=== PATIENT | male | born 1950 | race Caucasian/White ===

== ENCOUNTER 2020-06-28 22:31 | Inpatient (IN) ==
[2020-06-28] MEDS ORDERED: VANCOMYCIN 1,500 MG in 0.9 % SODIUM CHLORIDE 500 ML IV ONE (22:59)
[2020-06-28] MEDS ORDERED: PIPERACILLIN SODIUM/TAZOBACTAM 3.375 GM in DEXTROSE 5% IN WATER 50 ML IV SCH (23:00)
--- NOTE | 2020-06-28 23:04 | Emergency Department Note ---
Skin/Abscess/FB HPI General Chief complaint: Skin/Abscess/Rash Stated complaint: Foot ulcer Time Seen by Provider: 06/28/20 22:55 Source: patient Mode of arrival: ambulatory Limitations: no limitations History of Present Illness HPI Narrative: Narrative: 69-year-old male comes in complaining of worsening cellulitis of the right foot. He is somewhat confused and is not able to give me a reliable history. 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 He has had 3 doses of that and is not improving. The foot is swelling some and the redness has extended beyond the marked lines. He does have Charcot foot on the right and is a insulin-dependent diabetic. He denies trouble breathing or fever Related Data Home Medications Medication Instructions Recorded Confirmed insulin degludec [Tresiba 22 unit SUB-Q QHS 06/29/20 06/29/20 FlexTouch U-100] Previous Rx's Medication Instructions Recorded blood sugar diagnostic #50 each 06/06/19 spironolactone 25 mg tablet 25 mg PO QAM #30 tab 09/13/19 losartan 100 mg tablet See Rx Instructions .ROUTE 03/22/20 .COMPLEX #90 tab Allergies Allergy/AdvReac Type Severity Reaction Status Date / Time LALIT Inhibitors AdvReac Severe Neuroangina Verified 06/28/20 22:35 amlodipine [From Norvasc] AdvReac Severe Rash Verified 06/28/20 22:35 metformin AdvReac Intermediate Diarrhea Verified 06/28/20 22:35 lisinopril AdvReac Unknown Swollen Verified 06/28/20 22:35 lips, Respiratory Distress UNKNOWN BLODD PRESSURE MED Allergy Intermediate THROAT Uncoded 05/25/20 11:29 SWELLS Review of Systems ROS ROS Narrative: Narrative: All systems ED: reviewed and negative except as stated. [facility] Narrative Patient History Narrative: Narrative: Medical/Surgical/Family History All Active Problems (Updated 06/29/20 @ 00:40 by Eric Tiwari MD) Acute GI hemorrhage (Acute) Cellulitis and abscess of foot, except toes (Acute) Ventral hernia with obstruction and without gangrene (Acute) Foot callus (Acute) Diabetic autonomic neuropathy associated with type 2 diabetes mellitus (Acute) Iron deficiency anemia due to chronic blood loss (Acute) Tenonitis (Acute) Osteomyelitis of second toe of left foot (Acute) Pressure ulcer of right foot (Acute) Anemia (Acute) GERD with esophagitis (Acute) Palpitations (Chronic) Calcaneal spur, right foot (Chronic) Dry eye syndrome (Chronic) Combined nonsenile cataract (Chronic) HTN (hypertension) (Chronic) Hyperlipidemia (Chronic) Afib (Chronic) Type 2 diabetes mellitus with mild nonproliferative diabetic retinopathy without macular edema, left eye (Chronic) Other assisted (current) drug therapy (Chronic) Lower limb amputation status (Chronic) Preventative health care (Chronic) Medical History Afib (Chronic) Calcaneal spur, right foot (Chronic) Combined nonsenile cataract (Chronic) Dry eye syndrome (Chronic) Edema (Acute) History of complete ray amputation of second toe of left foot (Acute) HTN (hypertension) (Chronic) Hx of colon cancer, stage I (Acute ~1999) Hyperlipidemia (Chronic) Other termite treater (current) drug therapy (Chronic) Palpitations (Chronic) Preventative health care (Chronic) Type 2 diabetes mellitus with mild nonproliferative diabetic retinopathy without macular edema, left eye (Chronic) Surgical History History of esophagogastroduodenoscopy (EGD) (Acute ~2005) History of surgical removal of skin lesion (Acute 12/09/18) Papilloma removal Hx of colectomy (Acute) s- Partial Hx of colonoscopy (Acute ~03/2009) Hx of foot surgery (Acute ~2011) Hx of hernia repair (Acute ~2001) Ventral hernia, inguinal hernia Abdominal hernia repair, 2012 Lower limb amputation status (Chronic) Family History Mother Diabetes Macular degeneration Osteoporosis Father Hx of heart bypass surgery, Onset Age: 81 Prostate cancer Grandmother , young from unknown toxemia No problems noted. Grandfather Polio Paternal Brother , Age 53 - Bone Cancer No problems noted. Social History Smoking Status: Never smoker Alcohol Intake Frequency: does not drink Substance Use: does not use Exam Narrative Narrative: Narrative: Exam limited to the right lower foot shows mild pitting edema all around the foot. He is mildly tender-the foot is not insensate. He seems more sensitive to pressure but not light touch. The foot is markedly deformed and clearly Charcot-there is some scarring from previous surgery at the forefoot dorsum. The ulcer is actually somewhat proximal to the base of the hallux lateral. This area is very hypertrophied and cracked open with purulent drainage-the wound site is perhaps 3 to 4 cm. This particular area is quite tender. He has hammering of the toes as well. There is a market where earlier the redness have been behind now there is faint redness extending past this line perhaps 1-2 cm. Rectal exam shows normal rectal tone. He does have dark black stool at the rectum. Hemoccult positive General Limitations: no limitations Course Vital Signs Vital signs: Vital Signs Temperature 97.6 F 06/28/20 22:32 Pulse Rate 71 06/28/20 22:32 Respiratory Rate 18 06/28/20 22:32 Blood Pressure 168/53 06/28/20 22:32 Pulse Oximetry (%) 100 06/28/20 22:32 Temperature 98.3 F 06/29/20 08:00 Pulse Rate 63 06/29/20 08:00 Respiratory Rate 20 06/29/20 08:00 Blood Pressure 172/74 06/29/20 08:00 Pulse Oximetry (%) 100 06/29/20 08:00 [facility] MDM Narrative Medical decision making narrative: Narrative: Cellulitis versus abscess versus osteomyelitis and even sepsis. He does have some confusion but his vital signs are reasonable here-he is afebrile. Will order laboratory and x-ray to further sort this out. Get blood cultures and wound culture. X-ray ordered. Start Vanco and Zosyn X-ray shows compatible cellulitis but not osteomyelitis. Laboratory supports the diagnosis of cellulitis but not sepsis-leukocytosis is noted but procalcitonin is relatively low, and lactic acid is normal. Vital signs remained stable Unfortunately his hemoglobin came back at 6.8 and BUN is elevated. Looking back at his history he has had previous GI bleed so I did a rectal exam which was heme positive. We will order transfusion 3 units. Ordered Protonix 80 mg IV I contacted his and got additional history. She notes that Dr. Knight did a pill camera and upper endoscopy less than a month ago and found a small ar ea of bleeding in the upper intestine as well as Alpesh's lesions. Unfortunately Dr. Knight is not on-call tonight so we still have to contact another GI doctor to sort this out. The patient's also tells me that he had colon cancer about 20 years ago and had 18 inches of his colon removed. I discussed the situation with Dr. Alegria, [facility]'s general surgeon, who agreed to consult on the patient for possible endoscopy and other surgical treatment. I then discussed the case with Dr. Rubin our hospitalist, who agreed to accept the patient. We will admit the patient here for IV antibiotics as well as further treatment of his GI bleed. Ordered GoLYTELY for later this morning per surgery recommendations. I wrote transition orders Lab Data Result diagrams: 06/28/20 23:12 Labs: Lab Results 06/28/20 06/28/20 06/28/20 Range/Units 23:12 23:12 23:12 WBC 17.9 H (4.5-11.0) K/mcL RBC 3.06 L (4.50-5.90) M/mcL Hgb 6.8 L* (13.5-16.5) g/dL Hct 23.5 L (41.0-55.0) % POC Hct (41-55) % MCV 76.8 L (80.0-100.0) fL MCH 22.2 L (26.0-34.0) pg MCHC 28.9 L (31.0-36.0) g/dL RDW 16.1 H (11.5-14.5) % Plt Count 566 H (140-440) K/mcL MPV 8.8 (7.4-10.4) fL Neut % (Auto) 88.5 H (38.0-78.0) % Lymph % (Auto) 4.1 L (15.0-49.0) % [place] % (Auto) 6.9 (1.0-12.0) % Eos % (Auto) 0.3 (0.0-7.0) % Baso % (Auto) 0.2 (0.0-2.0) % Lymph # (Auto) 0.73 L (1.50-4.80) K/mcL [place] # (Auto) 1.24 H (0.10-0.90) K/mcL Eos # (Auto) 0.06 (0.00-0.70) K/mcL Baso # (Auto) 0.03 (0.00-0.20) K/mcL Absolute Neutrophils 15.82 H (1.80-8.00) K/mcL VBG Lactic Acid 1.0 (0.5-2.0) mmol/L POC Sodium (133-145) mEq/L POC Potassium (3.3-5.1) mEql/L POC Chloride (96-108) mEq/L POC Total CO2 (22-30) mmol/L POC BUN (6-20) mg/dL POC Creatinine (0.6-1.2) mg/dL POC Glucose (70-105) mg/dL Hemoglobin A1c 8.1 H (4.0-6.0) % Hgb Estim Average Glucose 186 mg/dL POC WB Ioniz Calcium (1.16-1.32) mmEq/L C-Reactive Protein 20.30 H (0.03-0.80) mg/dL Procalcitonin (<0.10) ng/mL 06/28/20 06/29/20 Range/Units 23:12 01:04 WBC (4.5-11.0) K/mcL RBC (4.50-5.90) M/mcL Hgb (13.5-16.5) g/dL Hct (41.0-55.0) % POC Hct 24 L (41-55) % MCV (80.0-100.0) fL MCH (26.0-34.0) pg MCHC (31.0-36.0) g/dL RDW (11.5-14.5) % Plt Count (140-440) K/mcL MPV (7.4-10.4) fL Neut % (Auto) (38.0-78.0) % Lymph % (Auto) (15.0-49.0) % [place] % (Auto) (1.0-12.0) % Eos % (Auto) (0.0-7.0) % Baso % (Auto) (0.0-2.0) % Lymph # (Auto) (1.50-4.80) K/mcL [place] # (Auto) (0.10-0.90) K/mcL Eos # (Auto) (0.00-0.70) K/mcL Baso # (Auto) (0.00-0.20) K/mcL Absolute Neutrophils (1.80-8.00) K/mcL VBG Lactic Acid (0.5-2.0) mmol/L POC Sodium 133 (133-145) mEq/L POC Potassium 4.5 (3.3-5.1) mEql/L POC Chloride 105 (96-108) mEq/L POC Total CO2 21 L (22-30) mmol/L POC BUN 29 H (6-20) mg/dL POC Creatinine 1.5 H (0.6-1.2) mg/dL POC Glucose 209 H (70-105) mg/dL Hemoglobin A1c (4.0-6.0) % Hgb Estim Average Glucose mg/dL POC WB Ioniz Calcium 1.46 H (1.16-1.32) mmEq/L C-Reactive Protein (0.03-0.80) mg/dL Procalcitonin 0.12 H (<0.10) ng/mL Radiology Data Radiology results reviewed: Yes I reviewed the patient's radiology results. Radiology results narrative: X-ray of the right foot shows soft tissue changes around the area of the wound site but nothing to suggest osteomyelitis. Notable previous instrumentation and postsurgical changes at the lateral portion of the right foot Discharge Plan Patient/Caregiver Discharge Instructions Pt seen by NURSE INFORMATICS EDUCATOR/PA only: No Clinical Impression: Acute GI hemorrhage, Cellulitis and abscess of foot, except toes Patient Disposition: Xfer As Inpt ([facility]) Condition: Serious Discharge Date/Time: 06/29/20 03:00
[2020-06-29 00:21] LABS: Basophils # (Auto) 0.03 K/mcL (0.00-0.20); Basophils % (Auto) 0.2 % (0.0-2.0); Eosinophils # (Auto) 0.06 K/mcL (0.00-0.70); Eosinophils % (Auto) 0.3 % (0.0-7.0); Hematocrit 23.5 % (41.0-55.0); Hemoglobin 6.8 g/dL (13.5-16.5); Lymphocytes # (Auto) 0.73 K/mcL (1.50-4.80); Lymphocytes % (Auto) 4.1 % (15.0-49.0); Mean Cell Volume 76.8 fL (80.0-100.0); Mean Corpuscular HGB Conc 28.9 g/dL (31.0-36.0); Mean Platelet Volume 8.8 fL (7.4-10.4); Monocytes # (Auto) 1.24 K/mcL (0.10-0.90); Monocytes % (Auto) 6.9 % (1.0-12.0); Neutrophils % (Auto) 88.5 % (38.0-78.0); Platelet Count 566 K/mcL (140-440); RBC 3.06 M/mcL (4.50-5.90); Red Cell Distribution Width 16.1 % (11.5-14.5); WBC 17.9 K/mcL (4.5-11.0)
[2020-06-29 00:34] LABS: Estimated Average Glucose(eAG) 186 mg/dL; Hemoglobin A1C 8.1 % Hgb (4.0-6.0)
[2020-06-29] MEDS ORDERED: 0.9 % SODIUM CHLORIDE 500 ML IV ONE (00:36)
[2020-06-29] MEDS ORDERED: 0.9 % SODIUM CHLORIDE 250 ML IV SCH (00:45)
[2020-06-29 01:15] LABS: POC Calcium, Ionized 1.46 mmEq/L (1.16-1.32); POC Creatinine 1.5 mg/dL (0.6-1.2); POC Potassium 4.5 mEql/L (3.3-5.1)
[2020-06-29] MEDS ORDERED: PANTOPRAZOLE 40 MG VIAL IV ONE (01:24)
[2020-06-29] MEDS ORDERED: ONDANSETRON 4 MG/2 ML VIAL IV PRN (01:49)
[2020-06-29] MEDS ORDERED: morphine 2 MG/ML VIAL IV PRN (01:49)
[2020-06-29] MEDS: 0.9 % SODIUM CHLORIDE 1,000 ML IV SCH ×2 (03:00→18:33)
--- NOTE | 2020-06-29 03:04 | XRay Report ---
CLINICAL INFORMATION: cellulitis / osteomyelitis COMPARISON: None. FINDINGS: The fifth metatarsal is subtotally resected: only the base remains. Distal fourth metatarsal osteotomy: Distal fragment is displaced one shaft width in a medial direction. Two screws are entirely within the metatarsal head fragment and the more proximal screw is fractured. There is solid osseous union across the osteotomy which shows moderate deformity related to distal fragment displacement. A 2 cm region of focal soft tissue swelling and subcutaneous gas overlies the medial aspect of the first MTP. There is mild erosive changes in the medial cortex of the first metatarsal head which suggests the possibility of complicating osteomyelitis. Pes cavus, severe hammertoe deformities first through fifth digits and metatarsus abductus noted. There is severe degenerative change in all the MTT and moderate degenerative change in the MTP and navicular cuneiform joints. Diffuse soft tissue swelling noted. IMPRESSION: 1. Focal cellulitis over the medial first MTP. There is a vague 9 mm radiolucent focus in the underlying medial first metatarsal head which could indicate complicating osteomyelitis. If definitive diagnosis is required, suggest MRI. 2. Malunified old distal fourth metatarsal osteotomy. 3. Subtotal resection of the fifth metatarsal. 4. Multilevel degeneration - most severe in the mid foot. 5. Pes cavus, metatarsus abductus and severe hammertoe deformities first through fifth digits. Interpreted and Authenticated by: Zackary Pena 06/29/20
[2020-06-29] MEDS ORDERED: HYDROcodone/APAP 5/325MG TABLET PO PRN (08:28)
[2020-06-29] MEDS ORDERED: ACETAMINOPHEN 325 MG TABLET PO PRN (08:28)
[2020-06-29] MEDS ORDERED: PROCHLORPERAZINE 10 MG/2 ML VIAL IV PRN (08:28)
[2020-06-29] MEDS ORDERED: DEXTROSE 31 GM ORAL.SUSP PO PRN (08:33)
[2020-06-29] MEDS ORDERED: DEXTROSE 50% 50 ML VIAL IV PRN (08:33)
--- NOTE | 2020-06-29 08:59 | Internal Med History&Physical ---
HPI History of Present Illness Patient information: Note initiated : 06/29/20 at 8:42 am Service Date, if different from initiated Date: [] Patient: Joesph Kang a 69 y/o M admitted on 06/29/20 for Foot ulcer. Chief Complaint: [] History of present illness: Mr. Kang is a 69 year old M diabetes type 2, high blood pressure and GI bleeding who presented to the ER due to right foot redness and and swelling. Patient is a poor historian. Patient went to see his podiatry yesterday who prescribed Augmentin for him. But the antibiotics does not seem to work. In the ER, he was found to have low hemoglobin 6.8 and a positive guaiac. He has a history of GI bleeding. 3 units of she RBC were ordered. When I saw this patient, he denied headache, dizziness, nausea, vomiting, chest pain, shortness of breath, abdominal pain, hematochezia or any bleeding. Review of Systems Review of systems: Positive for right foot redness and swelling. All other systems were reviewed and negative. PFSH PFSH All Active Problems Acute GI hemorrhage (Acute) Cellulitis and abscess of foot, except toes (Acute) Ventral hernia with obstruction and without gangrene (Acute) Foot callus (Acute) Diabetic autonomic neuropathy associated with type 2 diabetes mellitus (Acute) Iron deficiency anemia due to chronic blood loss (Acute) Tenonitis (Acute) Osteomyelitis of second toe of left foot (Acute) Pressure ulcer of right foot (Acute) Anemia (Acute) GERD with esophagitis (Acute) Palpitations (Chronic) Calcaneal spur, right foot (Chronic) Dry eye syndrome (Chronic) Combined nonsenile cataract (Chronic) HTN (hypertension) (Chronic) Hyperlipidemia (Chronic) Afib (Chronic) Type 2 diabetes mellitus with mild nonproliferative diabetic retinopathy without macular edema, left eye (Chronic) Other snf (current) drug therapy (Chronic) Lower limb amputation status (Chronic) Preventative health care (Chronic) Medical History Afib (Chronic) Calcaneal spur, right foot (Chronic) Combined nonsenile cataract (Chronic) Dry eye syndrome (Chronic) Edema (Acute) History of complete ray amputation of second toe of left foot (Acute) HTN (hypertension) (Chronic) Hx of colon cancer, stage I (Acute ~1999) Hyperlipidemia (Chronic) Other intermediate teacher (current) drug therapy (Chronic) Palpitations (Chronic) Preventative health care (Chronic) Type 2 diabetes mellitus with mild nonproliferative diabetic retinopathy without macular edema, left eye (Chronic) Surgical History History of esophagogastroduodenoscopy (EGD) (Acute ~2005) History of surgical removal of skin lesion (Acute 12/09/18) Papilloma removal Hx of colectomy (Acute) s- Partial Hx of colonoscopy (Acute ~03/2009) Hx of foot surgery (Acute ~2011) Hx of hernia repair (Acute ~2001) Ventral hernia, inguinal hernia Abdominal hernia repair, 2011 Lower limb amputation status (Chronic) Family History Mother Diabetes Macular degeneration Osteoporosis Father Hx of heart bypass surgery, Onset Age: 81 Prostate cancer Grandmother , young from unknown toxemia No problems noted. Grandfather Polio Paternal Brother , Age 53 - Bone Cancer No problems noted. 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, [employer] smoking status: Never smoker alcohol intake frequency: does not drink substance use type: does not use MEDS/ALLERGIES Home Medications and Allergies Home Medications Medication Instructions Recorded Confirmed Type blood sugar diagnostic #50 each 06/06/19 05/25/20 Rx spironolactone 25 mg tablet 25 mg PO QAM #30 tab 09/13/19 06/29/20 Rx losartan 100 mg tablet See Rx Instructions .ROUTE 03/22/20 06/29/20 Rx .COMPLEX #90 tab insulin degludec [Tresiba 22 unit SUB-Q QHS 06/29/20 06/29/20 History FlexTouch U-100] Allergies Allergy/AdvReac Type Severity Reaction Status Date / Time LALIT Inhibitors AdvReac Severe Neuroangina Verified 06/28/20 22:35 amlodipine [From Norvasc] AdvReac Severe Rash Verified 06/28/20 22:35 metformin AdvReac Intermediate Diarrhea Verified 06/28/20 22:35 lisinopril AdvReac Unknown Swollen Verified 06/28/20 22:35 lips, Respiratory Distress UNKNOWN BLODD PRESSURE MED Allergy Intermediate THROAT Uncoded 05/25/20 11:29 SWELLS EXAM Constitutional Vitals: Temp Pulse Resp BP Pulse Ox 98.3 F 63 20 172/74 100 06/29/20 08:00 06/29/20 08:00 06/29/20 08:00 06/29/20 08:00 06/29/20 08:00 Additional findings Additional findings: General - No acute distress Eyes - PERRLA, EOM intact ENT no rhinorrhea, no noticeable or palpable swelling, no redness or rash around throat or on face Neck supple, no JVD, no thyromegaly Respiratory: Lungs - diminshed BS, no use of accessary muscles. Cardiovascular - RRR no m/r/g, GI - Normal bowel sounds, no distended, soft. 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 Right distal part of foot erythema and edema. Ulcer is noted over plantar aspect of first phalangeal metatarsal joint, covered by purulent secetion. Hemo/lymphatic/immune no lymphadenopathy Neurological Alert and oriented x 3, no focal neurological deficits. Psychiatry flat affect DATA Data Completed and Pending Labs: Labs from last 24 hours 06/29/20 06/28/20 06/28/20 01:04 23:12 23:12 WBC RBC Hgb Hct POC Hct 24 L MCV MCH MCHC RDW Plt Count MPV Neut % (Auto) Lymph % (Auto) [place] % (Auto) Eos % (Auto) Baso % (Auto) Lymph # (Auto) [place] # (Auto) Eos # (Auto) Baso # (Auto) Absolute Neutrophils VBG Lactic Acid 1.0 POC Sodium 133 POC Potassium 4.5 POC Chloride 105 POC Total CO2 21 L POC BUN 29 H POC Creatinine 1.5 H POC Glucose 209 H Hemoglobin A1c Estim Average Glucose POC WB Ioniz Calcium 1.46 H C-Reactive Protein Procalcitonin 0.12 H 06/28/20 06/28/20 23:12 23:12 WBC 17.9 H RBC 3.06 L Hgb 6.8 L* Hct 23.5 L POC Hct MCV 76.8 L MCH 22.2 L MCHC 28.9 L RDW 16.1 H Plt Count 566 H MPV 8.8 Neut % (Auto) 88.5 H Lymph % (Auto) 4.1 L [place] % (Auto) 6.9 Eos % (Auto) 0.3 Baso % (Auto) 0.2 Lymph # (Auto) 0.73 L [place] # (Auto) 1.24 H Eos # (Auto) 0.06 Baso # (Auto) 0.03 Absolute Neutrophils 15.82 H VBG Lactic Acid POC Sodium POC Potassium POC Chloride POC Total CO2 POC BUN POC Creatinine POC Glucose Hemoglobin A1c 8.1 H Estim Average Glucose 186 POC WB Ioniz Calcium C-Reactive Protein 20.30 H Procalcitonin Preliminary micro results at discharge 06/28/20 23:48 Gram Stain - Preliminary Foot - Right Wound Culture - Preliminary A/P Narrative A/P Narrative: 1. GI bleeding 2. Hx of colon cancer, stage I hx of GI bleeding Dr. Knight did a pill camera and upper endoscopy in less than a month ago and found a small area of bleeding in the upper intestine as well as Alpesh's lesions. reported that he had colon cancer about 20 years ago and had 18 inches of his colon removed SG Dr. Calloway consult 3. Anemia of blood loss Hb 6.8 in the ER pantoprazole 40mg iv bid transfusion of 3 units of pRBCs 4. Cellulitis of right foot 5. Osteomyelitis of first metatarsal head, right wound culture blood culture wound care [facility] Podiatry consult 6. 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 HTN Continue losartan 100 mg daily, spironolactone 25 mg daily Added amlodipine 2.5 mg daily Hydralazine as needed 8. DVT prophylaxis: Lovenox 9. CODE STATUS: Piece Work Inspector Spent With Patient Time: Total time spent is greater than 50% in coordination of care (as documented) at patient's floor/unit and/or counseling patient: QUALITY VTE Deep Vein Thrombosis/Pulmonary Embolism Present on Admission: No
[2020-06-29] MEDS ORDERED: amLODIPine 5 MG TABLET PO SCH (09:00)
[2020-06-29] MEDS: PANTOPRAZOLE 40 MG VIAL IV SCH ×2 (09:50→17:46)
[2020-06-29] MEDS: LOSARTAN 50 MG TABLET PO SCH (09:50)
[2020-06-29] MEDS: SPIRONOLACTONE 25 MG TABLET PO SCH (09:50)
[2020-06-29] MEDS: DOCUSATE SODIUM 100 MG CAPSULE PO SCH ×2 (09:50→20:32)
[2020-06-29] MEDS: ENOXAPARIN 40 MG/0.4 ML SYRINGE SQ SCH (09:50)
[2020-06-29] MEDS: CEFEPIME 1 GM VIAL IV SCH ×3 (09:55→22:40)
[2020-06-29] MEDS ORDERED: PEG 3350/NA SULF,BICARB,CL/KCL 4,000 ML ORAL.SOL PO ONE ×2 (10:00→11:44)
[2020-06-29 10:15] LABS: Hematocrit 28.6 % (41.0-55.0); Hemoglobin 8.4 g/dL (13.5-16.5)
[2020-06-29] MEDS ORDERED: DEXAMETHASONE 10 MG/ML VIAL ONE (11:45)
[2020-06-29] MEDS ORDERED: SUGAMMADEX SODIUM 200 MG/2 ML VIAL IV ONE (11:45)
[2020-06-29] MEDS ORDERED: ONDANSETRON 4 MG/2 ML VIAL ONE (11:45)
[2020-06-29] MEDS ORDERED: fentaNYL 250 MCG/5 ML VIAL IV ONE (11:45)
[2020-06-29] MEDS ORDERED: PROPOFOL 200 MG/20 ML VIAL IV ONE (11:45)
[2020-06-29] MEDS ORDERED: MIDAZOLAM 5 MG/5 ML VIAL ONE (11:45)
[2020-06-29] MEDS ORDERED: ePHEDrine 50 MG/ML AMPUL IV ONE (11:45)
[2020-06-29] MEDS ORDERED: LIDOCAINE HCL/PF 100 MG/5 ML SYRINGE IV ONE (11:45)
[2020-06-29] MEDS ORDERED: ROCURONIUM 10 MG/ML ML IV ONE (11:45)
[2020-06-29] MEDS ORDERED: SUCCINYLCHOLINE 20 MG/ML ML IV ONE (11:45)
--- NOTE | 2020-06-29 12:40 | General Surgery Consult Note ---
HPI Data of Consult Primary Care Provider: Orlando Greenberg MD Consult Narrative Patient Information: Note initiated : 06/29/20 at 12:14 pm Service Date, if different from initiated Date: [] Patient: Joesph Kang 69 y/o M admitted on 06/29/20 for Foot ulcer. Chief Complaint: GI Bleed 69 yo man and quite poor historian with Hx of T2DM and charcot foot presened to ED yesterday evening due to diabetic foot infection due to increasing erythema and skin necrosis R medial foot. He was noted to have blood loss anemia with hb of 6.8 and found to have guiac possitive stools c/w with a GI bleed. Pt endorsed some dark stools. No hypotention, presyncopy, or tackycardia. He was admitted to medicine service and started on antibiltics. He recieved 2 units or PRBCs with hb increase to 8.4 this morning. Pt reports a prior episode of GI bleed requiring transfusion earlier this year. 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 Work up included EGD 04/11/20 demonstrating a large type III PEH but no associated ulcer. Biopsies of stomach and duodenum were negative per notes. On 05/03/20 pt underwent pill endoscopy showing a small AVM in the "mid-distal small bowel." Pt has a history of colon cancer and is s/p L hemicolectomy. His last colonoscopy was 2.5 yrs ago with 7 adenomatous polyps removed at the time. He is due for colonoscopy at 3yrs. No family history of colon cancer. This morning without evidence of hypovolemia beyond mild NIYA with Cr to 1.5 cc:: CC: Will Rubin Constitutional Constitutional: Present fatigue; Absent fever(s) EENT Eyes: Present dry eye Cardiovascular Cardiovascular: Present leg ulcers Respiratory Respiratory: Absent cough Gastrointestinal Gastrointestinal: Present melena; Absent abdominal pain Musculoskeletal Musculoskeletal: Present joint swelling Integumentary Integumentary: Present erythema Neurological Neurological: Present memory loss Psychiatric Psychiatric: Absent auditory hallucinations Endocrine Endocrine: Absent flushing PFSH PFSH All Active Problems (Updated 06/29/20 @ 12:40 by Dani Calloway MD) Acute GI hemorrhage (Acute) Cellulitis and abscess of foot, except toes (Acute) Ventral hernia with obstruction and without gangrene (Acute) Foot callus (Acute) Diabetic autonomic neuropathy associated with type 2 diabetes mellitus (Acute) Iron deficiency anemia due to chronic blood loss (Acute) Tenonitis (Acute) Osteomyelitis of second toe of left foot (Acute) Pressure ulcer of right foot (Acute) Anemia (Acute) GERD with esophagitis (Acute) Palpitations (Chronic) Calcaneal spur, right foot (Chronic) Dry eye syndrome (Chronic) Combined nonsenile cataract (Chronic) HTN (hypertension) (Chronic) Hyperlipidemia (Chronic) Afib (Chronic) Type 2 diabetes mellitus with mild nonproliferative diabetic retinopathy without macular edema, left eye (Chronic) Other custodial (current) drug therapy (Chronic) Lower limb amputation status (Chronic) Preventative health care (Chronic) Medical History Afib (Chronic) Calcaneal spur, right foot (Chronic) Combined nonsenile cataract (Chronic) Dry eye syndrome (Chronic) Edema (Acute) History of complete ray amputation of second toe of left foot (Acute) HTN (hypertension) (Chronic) Hx of colon cancer, stage I (Acute ~1999) Hyperlipidemia (Chronic) Other terminal superintendent (current) drug therapy (Chronic) Palpitations (Chronic) Preventative health care (Chronic) Type 2 diabetes mellitus with mild nonproliferative diabetic retinopathy without macular edema, left eye (Chronic) Surgical History History of esophagogastroduodenoscopy (EGD) (Acute ~2005) History of surgical removal of skin lesion (Acute 12/09/18) Papilloma removal Hx of colectomy (Acute) s- Partial Hx of colonoscopy (Acute ~03/2009) Hx of foot surgery (Acute ~2011) Hx of hernia repair (Acute ~2001) Ventral hernia, inguinal hernia Abdominal hernia repair, 2012 Lower limb amputation status (Chronic) Family History Mother Diabetes Macular degeneration Osteoporosis Father Hx of heart bypass surgery, Onset Age: 81 Prostate cancer Grandmother , young from unknown toxemia No problems noted. Grandfather Polio Paternal Brother , Age 53 - Bone Cancer No problems noted. Social History household members: spouse marital status: occupational status: employed occupation: [email or web address] leisure activities: other other: [employer], [employer] smoking status: Never smoker alcohol intake frequency: does not drink substance use type: does not use MEDS/ALLERGIES Home Medications and Allergies Home Medications Medication Instructions Recorded Confirmed Type blood sugar diagnostic #50 each 06/06/19 05/25/20 Rx spironolactone 25 mg tablet 25 mg PO QAM #30 tab 09/13/19 06/29/20 Rx losartan 100 mg tablet See Rx Instructions .ROUTE 03/22/20 06/29/20 Rx .COMPLEX #90 tab insulin degludec [Tresiba 22 unit SUB-Q QHS 06/29/20 06/29/20 History FlexTouch U-100] Allergies Allergy/AdvReac Type Severity Reaction Status Date / Time LALIT Inhibitors AdvReac Severe Neuroangina Verified 06/28/20 22:35 amlodipine [From Norvasc] AdvReac Severe Rash Verified 06/28/20 22:35 metformin AdvReac Intermediate Diarrhea Verified 06/28/20 22:35 lisinopril AdvReac Unknown Swollen Verified 06/28/20 22:35 lips, Respiratory Distress UNKNOWN BLODD PRESSURE MED Allergy Intermediate THROAT Uncoded 05/25/20 11:29 SWELLS Physical Examination Vital Signs Vital signs: Temp Pulse Resp BP Pulse Ox 36.8 C 63 20 172/74 100 06/29/20 08:00 06/29/20 08:00 06/29/20 08:00 06/29/20 08:00 06/29/20 08:00 General physical appearance General physical exam: other (Well appering, quite poor historian, lenghty pauses as pt recalls partial details of history) Eyes Eye exam: PERRL and normal ocular movement ENT ENT exam: normal mucosa Head Head exam IM: Present atraumatic and normocephalic Head exam expanded IM: Absent abrasion Neck Neck exam: trachea midline and no lymphadenopathy; negative deviated trachea Cardiovascular Cardiovascular: RRR no mgr Respiratory Respiratory exam: normal respiratory effort, clear to auscultation and other Abdomen Abdomen: Present soft (Large rotund abdomen with large midline incision. Moderately large ventral hernia. Dull to percussion, BS present, Hernia is wide based and reducable. Nontender throughouts. Non tender epigastrium. ) Rectum Rectum: Present no masses and other (Hard stool in rectal vault. Frankly dark and melanotic - guiac +) Musculoskeletal Musculoskeletal: Present other (Erythema and induration of R medial foot with 2.5x2cm area of skin necrosis on medial and dorsal aspect of 1st MTP joint) Psychiatric Psychiatric: Present other (Showed speech, cooperative ) Results Labs Result diagrams: 06/29/20 09:49 Labs: Abnormal lab results 06/28/20 06/28/20 06/28/20 Range/Units 23:12 23:12 23:12 WBC 17.9 H (4.5-11.0) K/mcL RBC 3.06 L (4.50-5.90) M/mcL Hgb 6.8 L* (13.5-16.5) g/dL Hct 23.5 L (41.0-55.0) % POC Hct (41-55) % MCV 76.8 L (80.0-100.0) fL MCH 22.2 L (26.0-34.0) pg MCHC 28.9 L (31.0-36.0) g/dL RDW 16.1 H (11.5-14.5) % Plt Count 566 H (140-440) K/mcL Neut % (Auto) 88.5 H (38.0-78.0) % Lymph % (Auto) 4.1 L (15.0-49.0) % Lymph # (Auto) 0.73 L (1.50-4.80) K/mcL Mora # (Auto) 1.24 H (0.10-0.90) K/mcL Absolute Neutrophils 15.82 H (1.80-8.00) K/mcL POC Total CO2 (22-30) mmol/L POC BUN (6-20) mg/dL POC Creatinine (0.6-1.2) mg/dL POC Glucose (70-105) mg/dL Hemoglobin A1c 8.1 H (4.0-6.0) % Hgb POC WB Ioniz Calcium (1.16-1.32) mmEq/L C-Reactive Protein 20.30 H (0.03-0.80) mg/dL Procalcitonin 0.12 H (<0.10) ng/mL 06/29/20 06/29/20 Range/Units 01:04 09:49 WBC (4.5-11.0) K/mcL RBC (4.50-5.90) M/mcL Hgb 8.4 L (13.5-16.5) g/dL Hct 28.6 L (41.0-55.0) % POC Hct 24 L (41-55) % MCV (80.0-100.0) fL MCH (26.0-34.0) pg MCHC (31.0-36.0) g/dL RDW (11.5-14.5) % Plt Count (140-440) K/mcL Neut % (Auto) (38.0-78.0) % Lymph % (Auto) (15.0-49.0) % Lymph # (Auto) (1.50-4.80) K/mcL Mora # (Auto) (0.10-0.90) K/mcL Absolute Neutrophils (1.80-8.00) K/mcL POC Total CO2 21 L (22-30) mmol/L POC BUN 29 H (6-20) mg/dL POC Creatinine 1.5 H (0.6-1.2) mg/dL POC Glucose 209 H (70-105) mg/dL Hemoglobin A1c (4.0-6.0) % Hgb POC WB Ioniz Calcium 1.46 H (1.16-1.32) mmEq/L C-Reactive Protein (0.03-0.80) mg/dL Procalcitonin (<0.10) ng/mL Diabetes panel 06/28/20 Range/Units 23:12 Hemoglobin A1c 8.1 H (4.0-6.0) % Hgb All other labs normal. A/P Assessment and plan (1) Acute GI hemorrhage: Status: Acute Comment: 69 yo man admitted with diabetic foot infection. Found to have 2 unit GIB with melanotic stool equivocally suggestive of upper GI source. Recent work up this fall did not find clear source but did not include colonoscopy. Will plan for upper and lower endoscopy tomorrow. If unremarkable bleeding may be from small bowel AVM. Plan: Agree with PPI 4L golytely colon prep today Upper and lower endoscopy tomorrow May need referral for push enteroscopy for management of AVM if unable to identify source tomorrow Risks and benifits discussed Constent signed All questions answered Dani Calloway MD Surgery Time Spent With Patient Time: Total time spent is greater than 50% in coordination of care (as documented) at patient's floor/unit and/or counseling patient:
[2020-06-29] MEDS: INSULIN LISPRO 1 UNIT/0.01 ML UNIT SQ SCH ×3 (12:50→20:31)
[2020-06-29] MEDS: 0.9 % SODIUM CHLORIDE 10 ML SYRINGE IV SCH ×2 (13:04→20:40)
[2020-06-29] MEDS: INSULIN GLARGINE, HUMAN 1 UNIT/0.01 ML SQ SCH (20:39)
[2020-06-29] MEDS ORDERED: INSULIN DEGLUDEC SUB-Q SCH (21:00)
[2020-06-30] MEDS: 0.9 % SODIUM CHLORIDE 1,000 ML IV SCH ×3 (01:44→16:48)
[2020-06-30] MEDS: CEFEPIME 1 GM VIAL IV SCH ×3 (06:00→22:51)
[2020-06-30] MEDS: 0.9 % SODIUM CHLORIDE 10 ML SYRINGE IV SCH ×3 (06:00→22:51)
[2020-06-30 06:02] LABS: Basophils # (Auto) 0.05 K/mcL (0.00-0.20); Basophils % (Auto) 0.4 % (0.0-2.0); Eosinophils # (Auto) 0.12 K/mcL (0.00-0.70); Eosinophils % (Auto) 0.9 % (0.0-7.0); Hematocrit 25.5 % (41.0-55.0); Hemoglobin 7.8 g/dL (13.5-16.5); Lymphocytes # (Auto) 1.23 K/mcL (1.50-4.80); Lymphocytes % (Auto) 9.7 % (15.0-49.0); Mean Cell Volume 77.3 fL (80.0-100.0); Mean Corpuscular HGB Conc 30.6 g/dL (31.0-36.0); Mean Platelet Volume 8.7 fL (7.4-10.4); Monocytes # (Auto) 0.92 K/mcL (0.10-0.90); Monocytes % (Auto) 7.3 % (1.0-12.0); Neutrophils % (Auto) 81.7 % (38.0-78.0); Platelet Count 555 K/mcL (140-440); Red Cell Distribution Width 16.5 % (11.5-14.5); WBC 12.7 K/mcL (4.5-11.0)
[2020-06-30 06:32] LABS: ALT/SGPT 11 U/L (<40); AST/SGOT 18 U/L (<40); Albumin 2.8 gm/dL (3.2-5.2); Albumin/Globulin Ratio 0.7 (1.0-2.3); Alkaline Phosphatase 81 U/L (39-117); Bilirubin,Total 0.5 mg/dL (0.1-1.0); Blood Urea Nitrogen 19 mg/dL (8-23); Calcium 9.9 mg/dL (8.6-10.4); Carbon Dioxide 22 mmol/L (22-30); Chloride 104 mmol/L (96-108); Globulin 4.1 gm/dL (2.2-3.7); Glomerular Filtration Rate 61; Glucose 73 mg/dL (70-105)
[2020-06-30 06:33] LABS: Phosphorous 2.2 mg/dL (2.5-4.5)
[2020-06-30 06:53] LABS: Hemoglobin A1C 7.1 % Hgb (4.0-6.0)
[2020-06-30] MEDS ORDERED: LORazepam 2 MG/ML VIAL IV PRN ×2 (08:35→08:51)
[2020-06-30] MEDS ORDERED: 0.9 % SODIUM CHLORIDE 250 ML IV SCH (08:45)
[2020-06-30] MEDS ORDERED: MAGNESIUM SULFATE 2 GM/50 ML BAG IV ONE (09:00)
[2020-06-30] MEDS ORDERED: amLODIPine 5 MG TABLET PO SCH (09:00)
[2020-06-30] MEDS: SPIRONOLACTONE 25 MG TABLET PO SCH (09:17)
[2020-06-30] MEDS: PANTOPRAZOLE 40 MG VIAL IV SCH ×2 (09:17→17:21)
[2020-06-30] MEDS: LOSARTAN 50 MG TABLET PO SCH (09:17)
[2020-06-30] MEDS: DOCUSATE SODIUM 100 MG CAPSULE PO SCH ×2 (09:18→22:50)
[2020-06-30] MEDS: ENOXAPARIN 40 MG/0.4 ML SYRINGE SQ SCH (09:19)
[2020-06-30] MEDS: INSULIN LISPRO 1 UNIT/0.01 ML UNIT SQ SCH ×4 (09:19→22:50)
[2020-06-30] MEDS: HYDROCHLOROTHIAZIDE 12.5 MG CAPSULE PO SCH (09:22)
[2020-06-30] MEDS ORDERED: SIMETHICONE 40 MG/0.6 ML ML PO ONE (10:45)
[2020-06-30] MEDS ORDERED: POTASSIUM PHOSPHATE 20 MEQ in DEXTROSE 5% IN WATER 250 ML IV ONE (11:00)
[2020-06-30] MEDS ORDERED: PROPOFOL 200 MG/20 ML VIAL IV ONE (11:05)
[2020-06-30] MEDS ORDERED: fentaNYL 100 MCG/2 ML VIAL IV ONE (11:05)
[2020-06-30] MEDS ORDERED: ePHEDrine 50 MG/ML AMPUL IV ONE (11:05)
[2020-06-30] MEDS ORDERED: KETAMINE 100 MG/ML ML ONE (11:05)
[2020-06-30] MEDS ORDERED: LIDOCAINE HCL/PF 100 MG/5 ML SYRINGE IV ONE (11:05)
[2020-06-30] MEDS ORDERED: ONDANSETRON 4 MG/2 ML VIAL ONE (11:05)
[2020-06-30] MEDS ORDERED: MIDAZOLAM 2 MG/2 ML VIAL ONE (11:05)
[2020-06-30] MEDS ORDERED: GLYCOPYRROLATE 0.2 MG/ML VIAL IV ONE (11:05)
--- NOTE | 2020-06-30 13:06 | Brief Operative Note ---
Brief Operative Note Date of procedure: 06/30/20 Pre-op diagnosis: GI Bleeding Post-op diagnosis: other (1) mild duodenitis, 2) Type 1 PEH 4cm, 3)5 colon sessile colon polyps, 4)large near obstrucing colon mass - presumed adenoCA) Procedure: 1) EGD 2) Duodenal biopsy - cold 3) Incomplete colonoscopy 4) Cold forcep polypectomy x 3 5) Hot snare polypectomy x 2 6) Biopsy and tatoo of transverse colon mass at 90 CM Grafts/Implants: No Anesthesia: GETA Findings: As above Difficult case with obesity, JOSÉ MIGUEL, and abdominal breathing. In addition large ventral hernia with scope intermittently transiting herniated colon. Complications: none Surgeon: Dani Calloway Estimated blood loss (cc): 2 Specimens Removed/Pathology: other (1) Duodenal biopsy - first portion, 2) Colon mass at 90 cm, 3) L colon polyp, 4)colon polyps 70cm 5) colon polyp 55cm) Condition: stable Disposition: PACU
--- NOTE | 2020-06-30 13:14 | Internal Med Progress Note ---
SUBJECTIVE Subjective Patient information: Note initiated : 06/30/20 at 1:14 pm Service Date, if different from initiated Date: [] Patient: Joesph Kang 69 y/o M admitted on 06/29/20 for Foot ulcer. Chief Complaint: [] Mr. Kang is a 69 year old M diabetes type 2, high blood pressure and GI bleeding who presented to the ER due to right foot redness and and swelling. Patient is a poor historian. Patient went to see his podiatry yesterday who prescribed Augmentin for him. But the antibiotics does not seem to work. In the ER, he was found to have low hemoglobin 6.8 and a positive guaiac. He has a history of GI bleeding. 3 units of she RBC were ordered. When I saw this patient, he denied headache, dizziness, nausea, vomiting, chest pain, shortness of breath, abdominal pain, hematochezia or any bleeding. 06/30 The patient has a small red bowel movement. Otherwise he denies any new complaints. Blood pressure 153, heart rate 63. The patient is allergic to amlodipine. I will add hydrochlorothiazide 12.5 mg daily. Hemoglobin A1c 7.1 Phos 2.2 Mag 1.5 Phos and mag were given. Repeat mag and Phos in the morning hemoglobin 7.8, it was a 8.4 yesterday. Status post 1 unit of PRBC yesterday. Patient denies regularly drinks alcohol. But patient demonstrated some alcohol withdrawal. CIWA protocol initiated. EGD and colonoscopy were done by Dr. Calloway on 06/30/20 -patient could have colon cancer. Review of Systems Review of systems: Positive for right foot redness and swelling. All other systems were reviewed and negative. Constitutional Vitals: Vital Signs Temp Pulse Resp BP Pulse Ox 98.3 F 63 16 148/65 100 06/30/20 12:56 06/30/20 12:56 06/30/20 12:56 06/30/20 12:56 06/30/20 12:56 Period Temp Pulse Resp BP Sys/Gray Pulse Ox Last 24 Hr 97 F-98.8 F 60-75 16-18 107-184/53-87 99-100 Intake and Output 06/29/20 06/30/20 06/30/20 21:59 05:59 13:59 Intake Total 4937 100 Output Total 1999 400 100 Balance 2937 -300 -100 Weight 110.178 kg 109.406 kg Intake & Output: Intake & Output 06/29/20 06/30/20 06/30/20 21:59 05:59 13:59 Intake Total 4937 100 Output Total 1999 400 100 Balance 2937 -300 -100 Weight 110.178 kg 109.406 kg Intake: IV 937 Sodium Chloride 0.9% 1,000 ml @ 937 50 mls/hr IV .Q20H [facility] Rx#: [id number] Oral 4000 100 Output: Void Amount 400 Urine/Stool Mix 2000 Stool 100 Other: Meal Breakfast Percent of Meal Consumed NPO Urine Appearance Clear Clear Clear Urine Color Bright Yellow Bright Yellow Bright Yellow Urine Odor Normal Normal Stool Size Copious Moderate Stool Color Black Blood Tinged Stool Consistency Liquid Liquid Watery Watery # Voids 1 # Bowel Movements 3 Additional findings Additional findings: General - No acute distress Eyes - PERRLA, EOM intact ENT no rhinorrhea, no noticeable or palpable swelling, no redness or rash around throat or on face Neck supple, no JVD, no thyromegaly Respiratory: Lungs - diminshed BS, no use of accessary muscles. Cardiovascular - RRR no m/r/g, GI - Normal bowel sounds, no distended, soft. 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 Right distal part of foot erythema and edema. Ulcer is noted over plantar aspect of first phalangeal metatarsal joint, covered by purulent secetion. Hemo/lymphatic/immune no lymphadenopathy Neurological Alert and oriented x 3, no focal neurological deficits. Psychiatry flat affect OBJ DATA Labs CBC & Chem 7: 06/30/20 04:26 06/30/20 04:26 Labs: Abnormal Lab Results 06/30/20 06/30/20 06/30/20 04:26 04:26 04:26 WBC 12.7 H RBC 3.30 L Hgb 7.8 L Hct 25.5 L POC Hct MCV 77.3 L MCH 23.6 L MCHC 30.6 L RDW 16.5 H Plt Count 555 H Neut % (Auto) 81.7 H Lymph % (Auto) 9.7 L Lymph # (Auto) 1.23 L Meade # (Auto) 0.92 H Absolute Neutrophils 10.33 H POC Total CO2 POC BUN POC Creatinine POC Glucose Hemoglobin A1c 7.1 H POC WB Ioniz Calcium Phosphorus Magnesium C-Reactive Protein NT-Pro-B Natriuret Pep Albumin 2.8 L Globulin 4.1 H Albumin/Globulin Ratio 0.7 L Procalcitonin 06/30/20 06/29/20 06/29/20 04:25 09:49 01:04 WBC RBC Hgb 8.4 L Hct 28.6 L POC Hct 24 L MCV MCH MCHC RDW Plt Count Neut % (Auto) Lymph % (Auto) Lymph # (Auto) Meade # (Auto) Absolute Neutrophils POC Total CO2 21 L POC BUN 29 H POC Creatinine 1.5 H POC Glucose 209 H Hemoglobin A1c POC WB Ioniz Calcium 1.46 H Phosphorus 2.2 L Magnesium 1.5 L C-Reactive Protein NT-Pro-B Natriuret Pep 2049.0 H Albumin Globulin Albumin/Globulin Ratio Procalcitonin 06/28/20 06/28/20 06/28/20 23:12 23:12 23:12 WBC 17.9 H RBC 3.06 L Hgb 6.8 L* Hct 23.5 L POC Hct MCV 76.8 L MCH 22.2 L MCHC 28.9 L RDW 16.1 H Plt Count 566 H Neut % (Auto) 88.5 H Lymph % (Auto) 4.1 L Lymph # (Auto) 0.73 L Meade # (Auto) 1.24 H Absolute Neutrophils 15.82 H POC Total CO2 POC BUN POC Creatinine POC Glucose Hemoglobin A1c 8.1 H POC WB Ioniz Calcium Phosphorus Magnesium C-Reactive Protein 20.30 H NT-Pro-B Natriuret Pep Albumin Globulin Albumin/Globulin Ratio Procalcitonin 0.12 H Meds: Medications Acetaminophen (Tylenol) 650 mg PO Q6HP PRN; Protocol PRN Reason: Per Pain Protocol/Fever > 101 Hydrocodone Bitart/Acetaminophen (Joy 5/325mg) 1 tab PO Q6HP PRN; Protocol PRN Reason: Per Pain Protocol Cefepime HCl (Maxipime) 1 gm IV Q8H [facility]; Protocol Last Admin: 06/30/20 06:00 Dose: 1 gm Documented by: Dextrose (Dextrose 50%) 0 ml IV UD PRN PRN Reason: Hypoglycemia Diagnostic Test (Pha) (Accu-Chek) 1 each FS ACHS [facility] Last Admin: 06/30/20 08:00 Dose: 1 each Documented by: Docusate Sodium (Colace) 100 mg PO BID [facility] Last Admin: 06/30/20 09:18 Dose: Not Given Documented by: Enoxaparin Sodium (Lovenox) 40 mg SQ DAILY [facility] Last Admin: 06/30/20 09:19 Dose: 40 mg Documented by: Glucose (Insta-Glucose) 15 gm PO PRN PRN PRN Reason: Hypoglycemia Hydralazine HCl (Apresoline) 10 mg IV Q4-6HP PRN PRN Reason: Hypertension Hydrochlorothiazide (Oretic) 12.5 mg PO DAILY [facility] Last Admin: 06/30/20 09:22 Dose: 12.5 mg Documented by: Sodium Chloride (Sodium Chloride 0.9%) 1,000 mls @ 50 mls/hr IV .Q20H [facility] Last Admin: 06/30/20 01:44 Dose: Not Given Documented by: Sodium Chloride (Sodium Chloride 0.9%) 250 mls @ 20 mls/hr IV .[id number] [facility] Stop: 06/30/20 21:14 Insulin Glargine (Lantus) 22 unit SQ HS [facility] Last Admin: 06/29/20 20:39 Dose: 22 units Documented by: Insulin Human Lispro (Humalog) 0 unit SQ [facility]; Protocol Last Admin: 06/30/20 09:19 Dose: Not Given Documented by: Lorazepam (Ativan) 0.5 mg IV Q6HP PRN; Protocol PRN Reason: Alcohol Withdrawal Last Admin: 06/30/20 09:57 Dose: 0.5 mg Documented by: Losartan Potassium (Cozaar) 100 mg PO DAILY [facility] Last Admin: 06/30/20 09:17 Dose: 100 mg Documented by: Morphine Sulfate (Morphine) 2 mg IV Q4HP PRN; Protocol PRN Reason: Chest Pain Pantoprazole Sodium (Protonix) 40 mg IV BIDAC [facility] Last Admin: 06/30/20 09:17 Dose: 40 mg Documented by: Prochlorperazine (Compazine) 5 mg IV Q6HP PRN PRN Reason: Nausea And Vomiting Sodium Chloride (Saline Flush) 10 ml IV Q8 [facility] Last Admin: 06/30/20 06:00 Dose: Not Given Documented by: Spironolactone (Aldactone) 25 mg PO QAM [facility] Last Admin: 06/30/20 09:17 Dose: 25 mg Documented by: A/P Narrative A/P Narrative: 1. GI bleeding 2. Hx of colon cancer, stage I 3. Colon cancer? hx of GI bleeding Dr. Knight did a pill camera and upper endoscopy in less than a month ago and found a small area of bleeding in the upper intestine as well as Alpesh's lesions. reported that he had colon cancer about 20 years ago and had 18 inches of his colon removed EGD and colonoscopy were done by Dr. Calloway on 06/30/20 -patient could have colon cancer. Dr. Calloway is on board, really appreciate it. 3. Anemia of blood loss Hb 6.8 in the ER hemoglobin 7.8, it was a 8.4 yesterday. Status post 1 unit of PRBC on 06/29. pantoprazole 40mg iv bid transfusion of 3 units of pRBCs 4. Cellulitis of right foot 5. Osteomyelitis of first metatarsal head, right wound culture blood culture wound care Cefepime Podiatry consult (no contract engineer available until Thursday) 6. 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 HTN Continue losartan 100 mg daily, spironolactone 25 mg daily The patient is allergic to amlodipine. I will add hydrochlorothiazide 12.5 mg daily. Hydralazine as needed 8. Electrolytes derangement Phos 2.2 Mag 1.5 Phos and mag were given. Repeat mag and Phos in the morning 9. DVT prophylaxis: Lovenox 10. CODE STATUS: Piggyback Clerk Spent With Patient Time: Total time spent is greater than 50% in coordination of care (as docum ented) at patient's floor/unit and/or counseling patient: QUALITY VTE Deep Vein Thrombosis/Pulmonary Embolism Present on Admission: No
--- NOTE | 2020-06-30 13:30 | General Surgery Progress Note ---
SUBJECTIVE Subjective Patient information: Note initiated : 06/30/20 at 1:24 pm Service Date, if different from initiated Date: [] Patient: Joesph Kang 69 y/o M admitted on 06/29/20 for Foot ulcer. Chief Complaint: S: No significant bleeding overnight, underwent colonoscopy this afternoon, to lerated well O: VSS LCTAB stong irregular radial pulse Abd soft nontender nondistneded, large ventral hernia Periphery warm EGD/Colonscopy today shows sourse of bleeding is large colon mass at 90 cm - presumed adenoCA, tattoed A/P 69 yo man with diabetic foot infection and GI bleed found on colonoscopy today to have almost certainly recurrent vs metacrenous colon cancer. Clinically not obstructed. Plan: OK for low residue diet CT A/P with contrast to eval lesion and for hepatic mets CT chest non contrast to eval for pulm mets CEA level Will likely need colon resection regardless of stage given near obstruction endoscopically. Will continue to follow with you Dani Calloway MD Constitutional Vitals: Vital Signs Temp Pulse Resp BP Pulse Ox 36.8 C 63 16 148/65 100 06/30/20 12:56 06/30/20 12:56 06/30/20 12:56 06/30/20 12:56 06/30/20 12:56 Period Temp Pulse Resp BP Sys/Gray Pulse Ox Last 24 Hr 36.1 C-37.1 C 60-75 16-18 107-184/53-87 99-100 Intake and Output 06/29/20 06/30/20 06/30/20 21:59 05:59 13:59 Intake Total 4937 100 941 Output Total 1999 400 100 Balance 2937 -300 841 Weight 110.178 kg 109.406 kg Intake & Output: Intake & Output 06/29/20 06/30/20 06/30/20 21:59 05:59 13:59 Intake Total 4937 100 941 Output Total 1999 400 100 Balance 2937 -300 841 Weight 110.178 kg 109.406 kg Intake: IV 937 941 Sodium Chloride 0.9% 1,000 ml @ 937 941 50 mls/hr IV .Q20H [facility] Rx#: [id number] Oral 4000 100 Output: Void Amount 400 Urine/Stool Mix 2000 Stool 100 Other: Meal Breakfast Percent of Meal Consumed NPO Urine Appearance Clear Clear Clear Urine Color Bright Yellow Bright Yellow Bright Yellow Urine Odor Normal Normal Stool Size Copious Moderate Stool Color Black Blood Tinged Stool Consistency Liquid Liquid Watery Watery # Voids 1 # Bowel Movements 3 A/P Time Spent With Patient Time: Total time spent is greater than 50% in coordination of care (as documented) at patient's floor/unit and/or counseling patient:
[2020-06-30 15:11] LABS: Carcinoembryonic Antigen 12.7 ng/mL (<3.4)
[2020-06-30] MEDS ORDERED: IOPAMIDOL 100 ML BOTTLE IV ONE (16:06)
--- NOTE | 2020-06-30 16:46 | Cat Scan Report ---
CLINICAL INFORMATION: Colonic mass - probable colon cancer. Staging COMPARISON: Abdomen and pelvic CT 07/07/2014 TECHNIQUE: Enteric contrast was utilized. 80 cc of Isovue-370 were injected intravenously, and 50 seconds later 2.5 mm helical slices were obtained from the lung apices through the subtrochanteric regions of the femurs. Following reconstruction, 2.5 mm sagittal, coronal and axial reformatted images were processed and reviewed at multiple windows and levels. 7 mm MIP reconstructions were obtained through the lungs to optimize nodule detection.The exam was performed using radiation dose optimization techniques including, but not limited to, automated exposure control, adjustment of the mA and/or kV according to patient size and use of iterative reconstruction technique. FINDINGS: Pulmonary parenchymal windows show mild chronic bronchitis changes featuring elevated lung volumes and minimal wall thickening/dilatation of bronchi. Scattered scarring is noted in the periphery of both lungs. No bullae suggest sierra emphysema. No pulmonary nodules to suggest metastatic disease. Pleural spaces are normal. The mediastinal windows show the heart is moderately enlarged with heavy calcific plaque in the coronary arteries. Thoracic aorta is normal diameter with diffuse intimal wall thickening. The pulmonary arteries are opacified and normal diameter - no evidence of embolus. There is no adenopathy in the mediastinal, hilar or axillary regions. Moderate hiatal hernia cysts of the gastric fundus and proximal gastric body. The esophagus is moderately dilated. Thyroid is unremarkable. Abdominal images show scattered simple cysts in the liver which are stable since the 2014 exam. The largest, 5 cm, is located in the posterior segment of the right hepatic lobe. An extremely vague isointense 1 mm lesion in the posterior segment right hepatic lobe is below the diaphragm on image 113 was not seen on previous study. Generalized inhomogeneity in the hepatic periphery periphery of the liver could indicate additional lesions which are poorly visualized on this contrast phase. One area is 33 mm in the inferior right hepatic lobe on image 173. Two small calcified granulomas in the right hepatic lobe, both less than 1, cm stable. The gallbladder and bile ducts are normal CBD is 5 mm. Simple cysts on both kidneys are stable since previous exam. No significant renal abnormality. The adrenal glands, spleen, pancreas and aorta including aortic branches are normal in size configuration and attenuation without focal lesion. There is no free air, free fluid and no adenopathy Pelvic images show prostate, seminal vesicles and urinary bladder are normal. A 6.5 cm annular mass in the mid ascending colon likely represent primary colon carcinoma. The remaining colon, small bowel and stomach are normal. There are multiple midline anterior abdominal wall hernias: 8.7 cm in the epigastric region consisting of only fat on image 150, 14 cm in the supraumbilical region on image 179 which contains a segment of transverse colon, 1 cm in the periumbilical region on image 190 containing only mesenteric fat and 6.4 cm in the infraumbilical region which contains a segment of small bowel and mesenteric fat. No evidence of bowel obstruction or incarceration. Bone windows show no evidence of metastatic disease or other significant osseous abnormality IMPRESSION: 1. 6.5 cm annular mass in the mid ascending colon suspicious for primary colon carcinoma. 2. 21 mm isointense lesion in the posterior segment right hepatic lobe near the diaphragm which could potentially represent a metastasis.. Vague heterogeneity within the hepatic periphery could represent metastatic disease which is poorly visualized in this contrast phase. Suggest: abdominal MRI. 3. Multiple anterior abdominal wall hernias near midline as described. No evidence of bowel obstruction or strangulation. 4. Moderate hiatal hernia 5. Moderate cardiomegaly with heavy atherosclerotic plaque in the coronary arteries 6. Mild chronic bronchitis. Interpreted and Authenticated by: Zackary Pena 06/30/20
[2020-06-30] MEDS: INSULIN GLARGINE, HUMAN 1 UNIT/0.01 ML SQ SCH (22:51)
[2020-07-01] MEDS: 0.9 % SODIUM CHLORIDE 10 ML SYRINGE IV SCH ×3 (05:46→22:07)
[2020-07-01] MEDS: CEFEPIME 1 GM VIAL IV SCH (05:46)
[2020-07-01 07:05] LABS: Basophils # (Auto) 0.06 K/mcL (0.00-0.20); Basophils % (Auto) 0.4 % (0.0-2.0); Eosinophils # (Auto) 0.24 K/mcL (0.00-0.70); Eosinophils % (Auto) 1.7 % (0.0-7.0); Hematocrit 28.4 % (41.0-55.0); Hemoglobin 8.6 g/dL (13.5-16.5); Lymphocytes # (Auto) 1.17 K/mcL (1.50-4.80); Lymphocytes % (Auto) 8.3 % (15.0-49.0); Mean Cell Volume 77.8 fL (80.0-100.0); Mean Corpuscular HGB Conc 30.3 g/dL (31.0-36.0); Mean Platelet Volume 8.5 fL (7.4-10.4); Monocytes # (Auto) 0.85 K/mcL (0.10-0.90); Neutrophils % (Auto) 83.6 % (38.0-78.0); Platelet Count 590 K/mcL (140-440); RBC 3.65 M/mcL (4.50-5.90); WBC 14.1 K/mcL (4.5-11.0)
[2020-07-01 07:49] LABS: Phosphorous 2.9 mg/dL (2.5-4.5)
[2020-07-01 07:51] LABS: ALT/SGPT 12 U/L (<40); AST/SGOT 16 U/L (<40); Albumin/Globulin Ratio 0.7 (1.0-2.3); Alkaline Phosphatase 77 U/L (39-117); Bilirubin,Total 0.4 mg/dL (0.1-1.0); Blood Urea Nitrogen 18 mg/dL (8-23); Calcium 9.4 mg/dL (8.6-10.4); Carbon Dioxide 20 mmol/L (22-30); Chloride 100 mmol/L (96-108); Globulin 4.1 gm/dL (2.2-3.7); Glomerular Filtration Rate 55; Glucose 99 mg/dL (70-105)
[2020-07-01] MEDS: INSULIN LISPRO 1 UNIT/0.01 ML UNIT SQ SCH ×4 (08:22→22:07)
[2020-07-01] MEDS: PANTOPRAZOLE 40 MG VIAL IV SCH ×2 (08:23→16:44)
[2020-07-01] MEDS: ENOXAPARIN 40 MG/0.4 ML SYRINGE SQ SCH (08:23)
[2020-07-01] MEDS: SPIRONOLACTONE 25 MG TABLET PO SCH (08:23)
[2020-07-01] MEDS: LOSARTAN 50 MG TABLET PO SCH (08:23)
[2020-07-01] MEDS: HYDROCHLOROTHIAZIDE 12.5 MG CAPSULE PO SCH (08:24)
[2020-07-01] MEDS: DOCUSATE SODIUM 100 MG CAPSULE PO SCH ×2 (08:24→22:06)
[2020-07-01] MEDS: 0.9 % SODIUM CHLORIDE 1,000 ML IV SCH ×2 (08:30→11:40)
[2020-07-01] MEDS ORDERED: cefTRIAXone 2 GM in DEXTROSE 5% IN WATER 50 ML IV SCH (09:45)
[2020-07-01] MEDS ORDERED: MAGNESIUM SULFATE 8.12 MEQ in DEXTROSE 5% IN WATER 50 ML IV ONE (10:00)
--- NOTE | 2020-07-01 11:24 | General Surgery Progress Note ---
SUBJECTIVE Subjective Patient information: Note initiated : 07/01/20 at 11:17 am Service Date, if different from initiated Date: [] Patient: Joesph Kang 69 y/o M admitted on 06/29/20 for Foot ulcer. Chief Complaint: S: Feeling well after colonoscopy yesterday - aware of cancer diagnosis, ready to move on with therapy. Passing flatus, Hungery Yesterday underwend CT scan C/A/P tumor located in mid R colon. No pulmonary mets. Stable hepatic cytes but two areas of questional concern for M1 disease: R posterior segmient isointense, vague heterogenicity near liver edge. MRI requested. CEA is elevated at 12.7 O: VSS Tired but well appering Breathing easily Strong radial pulse Abd soft, nontender, non distended R medial MTP joint with necrotic tissue overlying c/w diabetic foot infection. WBC 12.7->14.1 on cefapime A/P 69 yo man HD3 admitted for diabetic R foot infection, found to have a GIB with colonoscopy yesterday revealing a large R colon mass c/w colon cancer. Questionable R liver mets. Plan: MRI abdomen today to eval for hepatic involvement Will need R hemicolectomy regardless given bleeding Plan for surgery in next few days once workup complete. I discussed with pt if he would like a laproscopic surgery, do not have equipment here to perform. Would need to refere for this. Pt considering options Dani Calloway MD Surgery Constitutional Vitals: Vital Signs Temp Pulse Resp BP Pulse Ox 37.3 C H 65 18 166/77 100 07/01/20 08:00 07/01/20 08:00 07/01/20 08:00 07/01/20 08:00 07/01/20 08:00 Period Temp Pulse Resp BP Sys/Gray Pulse Ox Last 24 Hr 36.2 C-37.3 C 55-72 16-18 107-169/53-84 98-100 Intake and Output 06/30/20 07/01/20 07/01/20 21:59 05:59 13:59 Intake Total 264 206.7518 957 Output Total 770 95 75 Balance 90 209.5455 882 Weight 110.994 kg Intake & Output: Intake & Output 12/26/20 12/27/20 12/27/20 21:59 05:59 13:59 Intake Total 401 817.1465 957 Output Total 770 95 75 Balance 90 209.5455 882 Weight 110.994 kg Intake: IV 304.5455 957 Sodium Chloride 0.9% 1,000 ml @ 957 50 mls/hr IV .Q20H [facility] Rx#: [id number] Potassium Phosphate 20 Meq In 254.5455 Dextrose 5% in Water 250 ml @ 127.273 mls/hr IV ONCE ONE Rx#: [id number] Oral 860 Output: Urine Catheter Amount 750 Void Amount 20 95 75 Other: Urine Appearance Clear Clear Clear Urine Color Bright Yellow Dark Yellow Dark Yellow Urine Odor Normal Normal Normal Stool Size Moderate Small Stool Color Blood Tinged Blood Tinged Stool Consistency Watery Watery # Voids 1 A/P Time Spent With Patient Time: Total time spent is greater than 50% in coordination of care (as documented) at patient's floor/unit and/or counseling patient:
[2020-07-01] MEDS ORDERED: VANCOMYCIN PER PHARMACY IV SCH (13:39)
--- NOTE | 2020-07-01 13:54 | General Surgery Progress Note ---
SUBJECTIVE Subjective Patient information: Note initiated : 07/01/20 at 1:50 pm Service Date, if different from initiated Date: [] Patient: Joesph Kang 69 y/o M admitted on 06/29/20 for Foot ulcer. Chief Complaint: [] Diabetic foot infection on R medial foot worsening, necrotic tissue Discussed by phone with Podiatry (Dr Burgos) out of town but will see pt Thursday. Agreeable to debridement by myself today Plan: Debridement at bedside Abx: stop ceftriaxone, start ertapenem for good gram negative and aerobic coverage, Start vanco for potential MRSA Will obtain tissue cultures Pt agreeable to debridement Risks and benefits discussed Dani Calloway MD Surgery Constitutional Vitals: Vital Signs Temp Pulse Resp BP Pulse Ox 36.6 C 64 16 149/70 98 07/01/20 12:00 07/01/20 12:00 07/01/20 12:00 07/01/20 12:00 07/01/20 12:00 Period Temp Pulse Resp BP Sys/Gray Pulse Ox Last 24 Hr 36.3 C-37.3 C 55-70 16-18 138-169/56-84 98-100 Intake and Output 06/30/20 07/01/20 07/01/20 21:59 05:59 13:59 Intake Total 078 779.6635 1007 Output Total 770 95 75 Balance 90 459.5455 932 Weight 110.994 kg Intake & Output: Intake & Output 06/30/20 07/01/20 07/01/20 21:59 05:59 13:59 Intake Total 517 598.2722 1007 Output Total 770 95 75 Balance 90 459.5455 932 Weight 110.994 kg Intake: IV 554.5455 1007 Sodium Chloride 0.9% 1,000 ml @ 957 50 mls/hr IV .Q20H [facility] Rx#: [id number] Sodium Chloride 0.9% 250 ml @ 250 20 mls/hr IV .[id number] [facility] Rx#: [id number] Potassium Phosphate 20 Meq In 254.5455 Dextrose 5% in Water 250 ml @ 127.273 mls/hr IV ONCE ONE Rx#: [id number] Rocephin 2 gm In Dextrose 5% in 50 Water 50 ml @ 100 mls/hr IV DAILY [facility] Rx#:[id number] Oral 860 Output: Urine Catheter Amount 750 Void Amount 20 95 75 Other: Urine Appearance Clear Clear Clear Urine Color Bright Yellow Dark Yellow Dark Yellow Urine Odor Normal Normal Normal Stool Size Moderate Small Stool Color Blood Tinged Blood Tinged Stool Consistency Watery Watery # Voids 1 A/P Time Spent With Patient Time: Total time spent is greater than 50% in coordination of care (as documented) at patient's floor/unit and/or counseling patient:
--- NOTE | 2020-07-01 14:23 | Internal Med Progress Note ---
SUBJECTIVE Subjective Patient information: Note initiated : 07/01/20 at 2:22 pm Service Date, if different from initiated Date: [] Patient: Joesph Kang 69 y/o M admitted on 06/29/20 for Foot ulcer. Chief Complaint: [] Mr. Kang is a 69 year old M diabetes type 2, high blood pressure and GI bleeding who presented to the ER due to right foot redness and and swelling. Patient is a poor historian. Patient went to see his podiatry yesterday who prescribed Augmentin for him. But the antibiotics does not seem to work. In the ER, he was found to have low hemoglobin 6.8 and a positive guaiac. He has a history of GI bleeding. 3 units of she RBC were ordered. When I saw this patient, he denied headache, dizziness, nausea, vomiting, chest pain, shortness of breath, abdominal pain, hematochezia or any bleeding. 06/30 The patient has a small red bowel movement. Otherwise he denies any new complaints. Blood pressure 153, heart rate 63. The patient is allergic to amlodipine. I will add hydrochlorothiazide 12.5 mg daily. Hemoglobin A1c 7.1 Phos 2.2 Mag 1.5 Phos and mag were given. Repeat mag and Phos in the morning hemoglobin 7.8, it was a 8.4 yesterday. Status post 1 unit of PRBC yesterday. Patient denies regularly drinks alcohol. But patient demonstrated some alcohol withdrawal. CIWA protocol initiated. EGD and colonoscopy were done by Dr. Calloway on 06/30/20 -patient could have colon cancer. 07/01 No new complaints. Temperature 99.2, heart rate 50-70, blood pressure 160/77 -HCTZ was started yesterday WBC 14.1, hemoglobin 8.6, creatinine 1.3 Wound culture showed staph aureus -sensitive to all antibiotics. Dr. Calloway like to start this patient on ertapenem and vancomycin because he is concerned about anaerobic and others. Review of Systems Review of systems: Positive for right foot redness and swelling. All other systems were reviewed and negative. Constitutional Vitals: Vital Signs Temp Pulse Resp BP Pulse Ox 97.8 F 64 16 149/70 98 07/01/20 12:00 07/01/20 12:00 07/01/20 12:00 07/01/20 12:00 07/01/20 12:00 Period Temp Pulse Resp BP Sys/Gray Pulse Ox Last 24 Hr 97.3 F-99.2 F 55-70 16-18 138-169/56-84 98-100 Intake and Output 07/01/20 07/01/20 07/01/20 05:59 13:59 21:59 Intake Total 554.5455 1007 Output Total 95 75 Balance 459.5455 932 Intake & Output: Intake & Output 07/01/20 07/01/20 07/01/20 05:59 13:59 21:59 Intake Total 554.5455 1007 Output Total 95 75 Balance 459.5455 932 Intake: IV 554.5455 1007 Sodium Chloride 0.9% 1,000 ml @ 957 50 mls/hr IV .Q20H [facility] Rx#: [id number] Sodium Chloride 0.9% 250 ml @ 250 20 mls/hr IV .[id number] [facility] Rx#: [id number] Potassium Phosphate 20 Meq In 254.5455 Dextrose 5% in Water 250 ml @ 127.273 mls/hr IV ONCE ONE Rx#: [id number] Rocephin 2 gm In Dextrose 5% in 50 Water 50 ml @ 100 mls/hr IV DAILY [facility] Rx#:[id number] Output: Void Amount 95 75 Other: Urine Appearance Clear Clear Urine Color Dark Yellow Dark Yellow Urine Odor Normal Normal Stool Size Small Stool Color Blood Tinged Stool Consistency Watery # Voids 1 Additional findings Additional findings: General - No acute distress Eyes - PERRLA, EOM intact ENT no rhinorrhea, no noticeable or palpable swelling, no redness or rash around throat or on face Neck supple, no JVD, no thyromegaly Respiratory: Lungs - diminshed BS, no use of accessary muscles. Cardiovascular - RRR no m/r/g, GI - Normal bowel sounds, no distended, soft. 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 Right distal part of foot erythema and edema. Ulcer is noted over plantar aspect of first phalangeal metatarsal joint, covered by purulent secetion. Hemo/lymphatic/immune no lymphadenopathy Neurological Alert and oriented x 3, no focal neurological deficits. Psychiatry flat affect OBJ DATA Labs CBC & Chem 7: 07/01/20 04:41 07/01/20 04:41 Labs: Abnormal Lab Results 07/01/20 07/01/20 06/30/20 04:41 04:41 14:00 WBC 14.1 H RBC 3.65 L Hgb 8.6 L Hct 28.4 L POC Hct MCV 77.8 L MCH 23.6 L MCHC 30.3 L RDW 17.0 H Plt Count 590 H Neut % (Auto) 83.6 H Lymph % (Auto) 8.3 L Lymph # (Auto) 1.17 L [place] # (Auto) Absolute Neutrophils 11.75 H Carbon Dioxide 20 L POC Total CO2 POC BUN Creatinine 1.3 H POC Creatinine POC Glucose Hemoglobin A1c POC WB Ioniz Calcium Phosphorus Magnesium C-Reactive Protein NT-Pro-B Natriuret Pep Albumin 3.0 L Globulin 4.1 H Albumin/Globulin Ratio 0.7 L Carcinoembryonic Ag 12.7 H Procalcitonin 06/30/20 06/30/20 06/30/20 04:26 04:26 04:26 WBC 12.7 H RBC 3.30 L Hgb 7.8 L Hct 25.5 L POC Hct MCV 77.3 L MCH 23.6 L MCHC 30.6 L RDW 16.5 H Plt Count 555 H Neut % (Auto) 81.7 H Lymph % (Auto) 9.7 L Lymph # (Auto) 1.23 L [place] # (Auto) 0.92 H Absolute Neutrophils 10.33 H Carbon Dioxide POC Total CO2 POC BUN Creatinine POC Creatinine POC Glucose Hemoglobin A1c 7.1 H POC WB Ioniz Calcium Phosphorus Magnesium C-Reactive Protein NT-Pro-B Natriuret Pep Albumin 2.8 L Globulin 4.1 H Albumin/Globulin Ratio 0.7 L Carcinoembryonic Ag Procalcitonin 06/30/20 06/29/20 06/29/20 04:25 09:49 01:04 WBC RBC Hgb 8.4 L Hct 28.6 L POC Hct 24 L MCV MCH MCHC RDW Plt Count Neut % (Auto) Lymph % (Auto) Lymph # (Auto) [place] # (Auto) Absolute Neutrophils Carbon Dioxide POC Total CO2 21 L POC BUN 29 H Creatinine POC Creatinine 1.5 H POC Glucose 209 H Hemoglobin A1c POC WB Ioniz Calcium 1.46 H Phosphorus 2.2 L Magnesium 1.5 L C-Reactive Protein NT-Pro-B Natriuret Pep 2049.0 H Albumin Globulin Albumin/Globulin Ratio Carcinoembryonic Ag Procalcitonin 06/28/20 06/28/20 06/28/20 23:12 23:12 23:12 WBC 17.9 H RBC 3.06 L Hgb 6.8 L* Hct 23.5 L POC Hct MCV 76.8 L MCH 22.2 L MCHC 28.9 L RDW 16.1 H Plt Count 566 H Neut % (Auto) 88.5 H Lymph % (Auto) 4.1 L Lymph # (Auto) 0.73 L [place] # (Auto) 1.24 H Absolute Neutrophils 15.82 H Carbon Dioxide POC Total CO2 POC BUN Creatinine POC Creatinine POC Glucose Hemoglobin A1c 8.1 H POC WB Ioniz Calcium Phosphorus Magnesium C-Reactive Protein 20.30 H NT-Pro-B Natriuret Pep Albumin Globulin Albumin/Globulin Ratio Carcinoembryonic Ag Procalcitonin 0.12 H Meds: Medications Acetaminophen (Tylenol) 650 mg PO Q6HP PRN; Protocol PRN Reason: Per Pain Protocol/Fever > 101 Hydrocodone Bitart/Acetaminophen (Sparkman 5/325mg) 1 tab PO Q6HP PRN; Protocol PRN Reason: Per Pain Protocol Dextrose (Dextrose 50%) 0 ml IV UD PRN PRN Reason: Hypoglycemia Diagnostic Test (Pha) (Accu-Chek) 1 each FS ACHS [facility] Last Admin: 07/01/20 12:18 Dose: 1 each Documented by: Docusate Sodium (Colace) 100 mg PO BID [facility] Last Admin: 07/01/20 08:24 Dose: Not Given Documented by: Enoxaparin Sodium (Lovenox) 40 mg SQ DAILY [facility] Last Admin: 07/01/20 08:23 Dose: 40 mg Documented by: Glucose (Insta-Glucose) 15 gm PO PRN PRN PRN Reason: Hypoglycemia Hydralazine HCl (Apresoline) 10 mg IV Q4-6HP PRN PRN Reason: Hypertension Hydrochlorothiazide (Oretic) 12.5 mg PO DAILY [facility] Last Admin: 07/01/20 08:24 Dose: 12.5 mg Documented by: Sodium Chloride (Sodium Chloride 0.9%) 1,000 mls @ 75 mls/hr IV .[id number] [facility] Last Admin: 07/01/20 11:40 Dose: 75 mls/hr Documented by: Vancomycin HCl 1,500 mg/ (Sodium Chloride) 500 mls @ 333.3 mls/hr IV Q12H [facility] Ertapenem 1 gm/ Sodium (Chloride) 50 mls @ 100 mls/hr IV DAILY [facility]; Protocol Insulin Glargine (Lantus) 22 unit SQ HS [facility] Last Admin: 06/30/20 22:51 Dose: 22 units Documented by: Insulin Human Lispro (Humalog) 0 unit SQ ACHS [facility]; Protocol Last Admin: 07/01/20 12:46 Dose: 3 units Documented by: Lorazepam (Ativan) 0.5 mg IV Q6HP PRN; Protocol PRN Reason: Alcohol Withdrawal Last Admin: 06/30/20 09:57 Dose: 0.5 mg Documented by: Losartan Potassium (Cozaar) 100 mg PO DAILY [facility] Last Admin: 07/01/20 08:23 Dose: 100 mg Documented by: Morphine Sulfate (Morphine) 2 mg IV Q4HP PRN; Protocol PRN Reason: Chest Pain Pantoprazole Sodium (Protonix) 40 mg IV BIDAC [facility] Last Admin: 07/01/20 08:23 Dose: 40 mg Documented by: Prochlorperazine (Compazine) 5 mg IV Q6HP PRN PRN Reason: Nausea And Vomiting Sodium Chloride (Saline Flush) 10 ml IV Q8 [facility] Last Admin: 07/01/20 12:46 Dose: 10 ml Documented by: Spironolactone (Aldactone) 25 mg PO QAM [facility] Last Admin: 07/01/20 08:23 Dose: 25 mg Documented by: Vancomycin HCl (Vancomycin Per Pharmacy) 1 order IV UD [facility]; Protocol A/P Narrative A/P Narrative: 1. GI bleeding 2. Hx of colon cancer, stage I 3. Colon cancer? hx of GI bleeding Dr. Knight did a pill camera and upper endoscopy in less than a month ago and found a small area of bleeding in the upper intestine as well as Alpesh's lesions. reported that he had colon cancer about 20 years ago and had 18 inches of his colon removed EGD and colonoscopy were done by Dr. Calloway on 06/30/20 -patient could have colon cancer. Dr. Calloway is on board, really appreciate it. He will probably have a R hemicolectomy 3. Anemia of blood loss Hb 6.8 in the ER Status post 1 unit of PRBC on 06/29. pantoprazole 40mg iv bid transfusion of 3 units of pRBCs 4. Cellulitis of right foot 5. Osteomyelitis of first metatarsal head, right wound culture -staph aureus -sensitive to all antibiotics blood culture pending wound care Dr. Calloway would like to start him on ertapenem and vancomycin because he is concerned about anaerobic and Others. Podiatry consult (no soda drier feeder available until Thursday) 6. 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 HTN Continue losartan 100 mg daily, spironolactone 25 mg daily The patient is allergic to amlodipine. I will add hydrochlorothiazide 12.5 mg daily. Hydralazine as needed 8. Electrolytes derangement Phos 2.2 -2.9 Mag 1.5 -1.7. 1 g of mag was given today Repeat mag and Phos in the morning 9. DVT prophylaxis: Lovenox 10. CODE STATUS: [employer] Spent With Patient Time: Total time spent is greater than 50% in coordination of care (as documented) at patient's floor/unit and/or counseling patient: QUALITY VTE Deep Vein Thrombosis/Pulmonary Embolism Present on Admission: No
--- NOTE | 2020-07-01 14:42 | General Surgery Procedure Note ---
Date of procedure: Note initiated : 07/01/20 at 2:39 pm Service Date, if different from initiated Date: [] Pre-op diagnosis: diabetic foot infection with necrosis - R medial foot Post-op diagnosis: same Procedure: Sharp debridment of 3x3cm area of skin, subq and fascia - R medial foot Findings: 1) necrotic tissue opened 2) does not seem to invade underlying bone 3) Tissue cultures obtained Anesthesia: none Surgeon: Dani Calloway Estimated blood loss: 1 Pathology: none sent Description of procedure: Area sterile prep and draped. The skin and subq removed over medial aspect of MTP joint of great toe. Two smaller wounds more posteriorly connected. majority of non viable skin, subq and fascia removed. Did not appear to probe to bone. Area irrigated and packed WTD. Condition: stable Disposition: floor
[2020-07-01] MEDS: VANCOMYCIN 1,500 MG in 0.9 % SODIUM CHLORIDE 500 ML IV SCH (16:28)
[2020-07-01] MEDS: ERTAPENEM 1 GM in 0.9 % SODIUM CHLORIDE 50 ML IV SCH (16:30)
[2020-07-01] MEDS ORDERED: TAMSULOSIN 0.4 MG CAPSULE PO SCH (21:00)
[2020-07-01 21:25] LABS: Appearance,Urine CLEAR (Clear); Bilirubin,Urine Negative (Negative); Color,Urine YELLOW; Culture Indicated,Urine No; Glucose,Urine (UA) Negative (Negative); Ketones,Urine Negative (Negative); Leukocyte Esterase,Urine Negative /ug (Negative); Nitrate,Urine Negative (Negative); Protein,Urine Negative (Negative); Specific Gravity,Urine 1.017 (1.000-1.035); Urine Blood Negative (Negative); Urobilinogen,Urine Negative
[2020-07-01] MEDS: INSULIN GLARGINE, HUMAN 1 UNIT/0.01 ML SQ SCH (22:07)
[2020-07-02] MEDS: 0.9 % SODIUM CHLORIDE 1,000 ML IV SCH ×2 (00:21→13:09)
[2020-07-02] MEDS: hydrALAZINE 20 MG/ML VIAL IV PRN (00:21)
[2020-07-02] MEDS: VANCOMYCIN 1,500 MG in 0.9 % SODIUM CHLORIDE 500 ML IV SCH ×2 (01:03→09:49)
[2020-07-02] MEDS: 0.9 % SODIUM CHLORIDE 10 ML SYRINGE IV SCH ×3 (05:45→21:22)
[2020-07-02 05:46] LABS: Basophils # (Auto) 0.06 K/mcL (0.00-0.20); Basophils % (Auto) 0.6 % (0.0-2.0); Eosinophils # (Auto) 0.16 K/mcL (0.00-0.70); Eosinophils % (Auto) 1.5 % (0.0-7.0); Hematocrit 30.5 % (41.0-55.0); Hemoglobin 8.9 g/dL (13.5-16.5); Lymphocytes # (Auto) 1.22 K/mcL (1.50-4.80); Lymphocytes % (Auto) 11.3 % (15.0-49.0); Mean Cell Volume 81.1 fL (80.0-100.0); Mean Corpuscular HGB Conc 29.2 g/dL (31.0-36.0); Mean Platelet Volume 8.5 fL (7.4-10.4); Monocytes # (Auto) 0.65 K/mcL (0.10-0.90); Neutrophils % (Auto) 80.6 % (38.0-78.0); Platelet Count 559 K/mcL (140-440); RBC 3.76 M/mcL (4.50-5.90); Red Cell Distribution Width 17.4 % (11.5-14.5); WBC 10.8 K/mcL (4.5-11.0)
[2020-07-02 06:34] LABS: ALT/SGPT 12 U/L (<40); AST/SGOT 26 U/L (<40); Albumin 2.7 gm/dL (3.2-5.2); Albumin/Globulin Ratio 0.6 (1.0-2.3); Alkaline Phosphatase 79 U/L (39-117); Bilirubin,Total 0.2 mg/dL (0.1-1.0); Blood Urea Nitrogen 16 mg/dL (8-23); Calcium 8.9 mg/dL (8.6-10.4); Carbon Dioxide 18 mmol/L (22-30); Chloride 99 mmol/L (96-108); Globulin 4.4 gm/dL (2.2-3.7); Glomerular Filtration Rate 68; Glucose 118 mg/dL (70-105)
[2020-07-02] MEDS: INSULIN LISPRO 1 UNIT/0.01 ML UNIT SQ SCH ×4 (09:04→21:22)
[2020-07-02] MEDS: ENOXAPARIN 40 MG/0.4 ML SYRINGE SQ SCH (09:46)
[2020-07-02] MEDS: LOSARTAN 50 MG TABLET PO SCH (09:46)
[2020-07-02] MEDS: PANTOPRAZOLE 40 MG VIAL IV SCH ×2 (09:47→17:23)
[2020-07-02] MEDS: SPIRONOLACTONE 25 MG TABLET PO SCH (09:47)
[2020-07-02] MEDS: ERTAPENEM 1 GM in 0.9 % SODIUM CHLORIDE 50 ML IV SCH (09:47)
[2020-07-02] MEDS: HYDROCHLOROTHIAZIDE 12.5 MG CAPSULE PO SCH (09:47)
[2020-07-02] MEDS: DOCUSATE SODIUM 100 MG CAPSULE PO SCH ×2 (09:48→21:22)
--- NOTE | 2020-07-02 10:32 | Operative Note ---
DATE OF OPERATION: 06/30/2020 PREOPERATIVE DIAGNOSIS: GI bleed. POSTOPERATIVE DIAGNOSES: 1. Mild duodenitis. 2. 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 3. Five colonic sessile polyps. 4. Large near obstructing colon mass at 90 cm, presumed adenocarcinoma. PROCEDURES: 1. EGD. 2. Duodenal biopsy, cold. 3. Incomplete colonoscopy. 4. Cold forceps polypectomy x3. 5. Hot snare polypectomy x2. 6. Biopsy and tattoo of colon mass at 90 cm. (follow up CT shows mass in mid R colon - pt s/p prior L colectomy) SURGEON: Dani Calloway MD MEDICAL DERMATOLOGIST: None. INDICATIONS: This is a 69-year-old man who presented to the Emergency Department with a diabetic foot infection. In the course of his workup, he was noted to have a substantial blood loss anemia with a hemoglobin of 6. Guaiac of stools revealed guaiac positivity and moderate, though not deeply pigmented, melena. He was admitted and General Surgery was consulted. Review of his past medical history is notable for left colon cancer, status post resection, colonoscopy 2-1/2 years ago with 7 adenomatous polyps removed, and a history of a paraesophageal hernia. FINDINGS: 1. Large near-obstructing colon mass at 90 cm with minimal amount of bleeding. I think this is likely his source. 2. Difficult case with obesity, obstructive sleep apnea and abdominal breathing, requiring anesthesia for sedation. 3. Large ventral hernia with scope intermittently transiting herniated colon. DESCRIPTION OF PROCEDURE: The patient was brought to the operating room. He was sedated without incident. A timeout was completed. We started with the EGD. An endoscope was advanced through the oropharynx and into the proximal esophagus without difficulty. It transited through the esophagus into the stomach. There was a significant amount of bile within the stomach. The stomach was insufflated. There was no blood within it. The pylorus was identified, and the scope was passed through the pylorus into the first and then second portion of the duodenum. The scope was then slowly withdrawn. In general, the duodenal mucosa appeared to be healthy with normal papilla. There was a small area of mild duodenitis with minimal erythema in the first portion of the duodenum. A cold biopsy was obtained at this site. The scope was then withdrawn through the pylorus, which was carefully inspected and found to be without ulcers. There were no ulcers in the antrum as well. Inspecting the body of the stomach, the rugae appeared to be healthy and robust. The scope was retroflexed revealing a Hill grade 4 valve with an associated type 1 paraesophageal hernia. The scope was withdrawn further. The hiatus was identified at 44 cm and the Z-line identified at 40 cm. There was LA grade B esophagitis noted within the distal esophagus; there were no other lesions in the esophagus and the scope was withdrawn without incident. Next, the patient was placed in left decubitus position and his colonoscopy was performed. A 160 cm colonoscope was advanced into the rectum. There was some residual blood products within the rectum, which were suctioned free. With great difficulty, the scope was advanced through the folds of the colon. We attempted multiple times during the course of the procedure and large bowel had to be reduced into the abdomen to facilitate the transit of the scope and due to the patient's obesity, obstructive sleep apnea and significant abdominal breathing, he had to be deeply sedated by Anesthesia to facilitate passage of the scope. At 90 cm, a large near obstructing colon mass was encountered which could not be transited past. Multiple biopsies were taken of this and 4 quadrants were tattooed each with 1 mL of Nehal ink submucosally. Of note, the colon mass appeared to be the source of bleeding with some mild diffuse ooze emanating from its surface. The scope was then slowly withdrawn. At 70 cm, three small sessile polyps were removed, one via a hot snare and the other two via cold biopsy forceps. Withdrawing further at 55 cm, a small sessile colon polyp was removed via cold forceps. An additional colon polyp was removed via hot snare in the left colon. The scope was then withdrawn into the rectum. There were no rectal lesions. The scope was retroflexed without incident. Scope withdrawal time was greater than 17 minutes. Prep was adequate. ESTIMATED BLOOD LOSS: 2 mL. COMPLICATIONS: None. IMPLANTS: None. SPECIMENS: 1. Duodenal biopsy in the first portion. 2. Colon mass at 90 cm. 3. Left colon polyp. 4. Colon polyps at 70 cm. 5. Colon polyp at 55 cm. JS:martha Job ID: [id number] Doc ID: [id number] Dani MORENO
--- NOTE | 2020-07-02 13:36 | Orthopedic Consult Note ---
HPI Data of Consult Primary Care Provider: Orlando Greenberg MD Consult Narrative Patient Information: Note initiated : 07/02/20 at 1:33 pm Service Date, if different from initiated Date: [] Patient: Joesph Kang 69 y/o M admitted on 06/29/20 for Foot ulcer. Chief Complaint: [Foot sore, right] About a week ago he developed an ulceration to the right foot first metatarsal region. He also has colon cancer and underwent surgery for that and debridement of the foot yesterday. He does have pain to the foot. cc:: CC: Will Rubin [facility] PFSH All Active Problems (Updated 06/29/20 @ 12:40 by Dani Calloway MD) Acute GI hemorrhage (Acute) Cellulitis and abscess of foot, except toes (Acute) Ventral hernia with obstruction and without gangrene (Acute) Foot callus (Acute) Diabetic autonomic neuropathy associated with type 2 diabetes mellitus (Acute) Iron deficiency anemia due to chronic blood loss (Acute) Tenonitis (Acute) Osteomyelitis of second toe of left foot (Acute) Pressure ulcer of right foot (Acute) Anemia (Acute) GERD with esophagitis (Acute) Palpitations (Chronic) Calcaneal spur, right foot (Chronic) Dry eye syndrome (Chronic) Combined nonsenile cataract (Chronic) HTN (hypertension) (Chronic) Hyperlipidemia (Chronic) Afib (Chronic) Type 2 diabetes mellitus with mild nonproliferative diabetic retinopathy without macular edema, left eye (Chronic) Other skilled nursing (current) drug therapy (Chronic) Lower limb amputation status (Chronic) Preventative health care (Chronic) Medical History Afib (Chronic) Calcaneal spur, right foot (Chronic) Combined nonsenile cataract (Chronic) Dry eye syndrome (Chronic) Edema (Acute) History of complete ray amputation of second toe of left foot (Acute) HTN (hypertension) (Chronic) Hx of colon cancer, stage I (Acute ~1999) Hyperlipidemia (Chronic) Other skilled nursing (current) drug therapy (Chronic) Palpitations (Chronic) Preventative health care (Chronic) Type 2 diabetes mellitus with mild nonproliferative diabetic retinopathy without macular edema, left eye (Chronic) Surgical History History of esophagogastroduodenoscopy (EGD) (Acute ~2005) History of surgical removal of skin lesion (Acute 12/09/18) Papilloma removal Hx of colectomy (Acute) 1969's- Partial Hx of colonoscopy (Acute ~03/2009) Hx of foot surgery (Acute ~2011) Hx of hernia repair (Acute ~2001) Ventral hernia, inguinal hernia Abdominal hernia repair, 2011 Lower limb amputation status (Chronic) Family History Mother Diabetes Macular degeneration Osteoporosis Father Hx of heart bypass surgery, Onset Age: 81 Prostate cancer Grandmother , young from unknown toxemia No problems noted. Grandfather Polio Paternal Brother , Age 53 - Bone Cancer No problems noted. Social History household members: spouse marital status: occupational status: employed occupation: [employer] leisure activities: other other: [employer], [employer] smoking status: Never smoker alcohol intake frequency: does not drink substance use type: does not use MEDS/ALLERGIES Home Medications and Allergies Home Medications Medication Instructions Recorded Confirmed Type spironolactone 25 mg tablet 25 mg PO QAM #30 tab 09/13/19 06/29/20 Rx losartan 100 mg tablet See Rx Instructions .ROUTE 03/22/20 06/29/20 Rx .COMPLEX #90 tab insulin degludec [Tresiba 22 unit SUB-Q QHS 06/29/20 06/29/20 History FlexTouch U-100] Allergies Allergy/AdvReac Type Severity Reaction Status Date / Time LALIT Inhibitors AdvReac Severe Neuroangina Verified 06/28/20 22:35 amlodipine [From Norvasc] AdvReac Severe Rash Verified 06/28/20 22:35 metformin AdvReac Intermediate Diarrhea Verified 06/28/20 22:35 lisinopril AdvReac Unknown Swollen Verified 06/28/20 22:35 lips, Respiratory Distress UNKNOWN BLODD PRESSURE MED Allergy Intermediate THROAT Uncoded 05/25/20 11:29 SWELLS Physical Examination Ankle & Foot right: Ankle appearance: swelling, erythema, laceration and effusion Foot appearance: swelling, erythema and effusion A/P Time Spent With Patient Time: Total time spent is greater than 50% in coordination of care (as documented) at patient's floor/unit and/or counseling patient: Diabetic ulceration to level of joint capsule, Continue daily dressing changes Follow-up out-patient when discharged from hospital.
[2020-07-02] MEDS ORDERED: 0.9 % SODIUM CHLORIDE 250 ML IV SCH (14:00)
--- NOTE | 2020-07-02 16:32 | Magnetic Resonance Report ---
History: Increased confusion, colon cancer TECHNIQUE: Multiplanar imaging was performed using multiple pulse sequences. FINDINGS: There are a few small old lacunar infarcts with encephalomalacia. The largest is located posteriorly and laterally in the right thalamus and measures 3 x 5 mm. 2 mm lesion is seen in the left putamen and there is a 2 x 3 mm periventricular infarct adjacent to the atrium of the left lateral ventricle. No acute infarct is present. There is no hemorrhage or intracranial mass. T2 and FLAIR sequences reveal large confluent zones of abnormal increased signal in the centrum semiovale and reveles radiata, predominantly involving the frontal and parietal lobes. There is mild involvement in the occipital lobes and posterior temporal lobes. The brainstem and cerebellum are normal. There is mild to moderate generalized atrophy, predominantly involving the upper convexity of the head. No abnormal extra-axial fluid collection is present. Images of the orbits show no abnormality. IMPRESSION: Small scattered old lacunar infarcts Age-related degenerative changes No evidence of neoplasm or acute abnormality Interpreted and Authenticated by: Reed Gunter 07/02/20
--- NOTE | 2020-07-02 17:43 | Magnetic Resonance Report ---
History: Colon cancer an indeterminate low-attenuation lesions in the liver seen on recent CT scan. TECHNIQUE: Multiplanar imaging was performed using multiple pulse sequences. 20 mm MultiHance contrast was injected. Multiphasic postcontrast fat-suppressed T1-weighted views were acquired. FINDINGS: There are several scattered cysts in the liver. The largest is located subcapsular laterally in segment seven. Measures 3.9 x 5.0 cm. There are other is beneath the diaphragm high in segment two of the left lobe, caudate lobe and posteriorly and inferiorly in segments six and seven. None of the cysts enhance with contrast. They have T2 shine through on the diffusion pulse sequence but no restricted diffusion. No solid mass is seen within the liver. The overall liver size is normal. Capsule is a smooth contour. There is no ascites. The spleen is normal in size and homogeneous. No abnormality seen within the pancreas. The adrenals are normal. There is a complex exophytic cyst laterally in the lower third of the right kidney. It measures 1.2 x 2.1 cm. Has a relatively thick wall. It does not enhance with contrast and has no restricted diffusion. There are a few other much smaller parenchymal cysts in the right kidney best seen on the T2 sequence which are 1 cm or smaller. The left kidney is normal separation 9 mm cyst in the upper pole. There is a solid mass in the colon to the hepatic flexure. It measures approximately 6.9 x 7.2 cm. This was seen in the mid ascending colon on the CT scan done on 06/30/20. At this time it appears to extend into the proximal transverse colon. This may be a lead point for intussusception. The tumor does not appear to extend through the wall of the colon. The mid transverse colon protrudes through a defect in the anterior abdominal wall into a moderate-sized ventral hernia. IMPRESSION: Scattered cysts in the liver. There is no evidence of liver metastasis. Large tumor at the hepatic flexure which may be a lead point for an intussusception. Complex but probably benign cyst laterally in the lower pole of the right kidney. Interpreted and Authenticated by: Reed Gunter 07/02/20
[2020-07-02] MEDS: INSULIN GLARGINE, HUMAN 1 UNIT/0.01 ML SQ SCH (21:22)
--- NOTE | 2020-07-02 21:49 | Internal Med Progress Note ---
SUBJECTIVE Subjective Patient information: Note initiated : 07/02/20 at 9:45 pm Service Date, if different from initiated Date: [] Patient: Joesph Kang 69 y/o M admitted on 06/29/20 for Foot ulcer. Chief Complaint: [] Mr. Kang is a 69 year old M diabetes type 2, high blood pressure and GI b leeding who presented to the ER due to right foot redness and and swelling. Patient is a poor historian. Patient went to see his podiatry yesterday who prescribed Augmentin for him. But the antibiotics does not seem to work. In the ER, he was found to have low hemoglobin 6.8 and a positive guaiac. He has a history of GI bleeding. 3 units of she RBC were ordered. When I saw this patient, he denied headache, dizziness, nausea, vomiting, chest pain, shortness of breath, abdominal pain, hematochezia or any bleeding. 06/30 The patient has a small red bowel movement. Otherwise he denies any new complaints. Blood pressure 153, heart rate 63. The patient is allergic to amlodipine. I will add hydrochlorothiazide 12.5 mg daily. Hemoglobin A1c 7.1 Phos 2.2 Mag 1.5 Phos and mag were given. Repeat mag and Phos in the morning hemoglobin 7.8, it was a 8.4 yesterday. Status post 1 unit of PRBC yesterday. Patient denies regularly drinks alcohol. But patient demonstrated some alcohol withdrawal. CIWA protocol initiated. EGD and colonoscopy were done by Dr. Calloway on 06/30/20 -patient could have colon cancer. 07/01 No new complaints. Temperature 99.2, heart rate 50-70, blood pressure 160/77 -HCTZ was started yesterday WBC 14.1, hemoglobin 8.6, creatinine 1.3 Wound culture showed staph aureus -sensitive to all antibiotics. Dr. Calloway like to start this patient on ertapenem and vancomycin because he is concerned about anaerobic and others. 07/02 Pt is more lethargic and sleepy today. But denies fever/chills. BP is not well controlled BG is well controlled. Afebrile. WBC normalized today. Continue closely monitor Review of Systems Review of systems: Positive for right foot redness and swelling. All other systems were reviewed and negative. Constitutional Vitals: Vital Signs Temp Pulse Resp BP Pulse Ox 98.8 F 65 20 156/55 95 07/02/20 20:17 07/02/20 08:00 07/02/20 20:17 07/02/20 20:17 07/02/20 20:17 Period Temp Pulse Resp BP Sys/Gray Pulse Ox Last 24 Hr 97.2 F-99.3 F 65 15-24 135-174/43-104 95-100 Intake and Output 07/02/20 07/02/20 07/02/20 05:59 13:59 21:59 Intake Total 1501 1010 Output Total 1125 1000 900 Balance 376 10 -900 Weight 110.994 kg Patient Weight 07/03/20 05:59 Weight 110.994 kg Intake & Output: Intake & Output 07/02/20 07/02/20 07/02/20 05:59 13:59 21:59 Intake Total 1501 1010 Output Total 1125 1000 900 Balance 376 10 -900 Weight 110.994 kg Intake: IV 1501 1010 Sodium Chloride 0.9% 1,000 ml @ 951 960 75 mls/hr IV .[id number] VANESSA Rx#: [id number] INVanz 1 GM In Sodium Chloride 50 50 0.9% 50 ml @ 100 mls/hr IV DAILY VANESSA Rx#:[id number] Vancomycin 1,500 mg In Sodium 500 Chloride 0.9% 500 ml @ 333.3 mls/hr IV Q12H VANESSA Rx#: [id number] Output: Void Amount 1125 1000 900 Other: Urine Appearance Clear Clear Clear Urine Color Straw Pale Bright Yellow Urine Odor Normal Normal Normal Stool Size Small Smear Small Stool Color Brown Brown Dark Red Blood Blood Tinged Blood Tinged Stool Consistency Soft Soft # Voids 250 1 # Bowel Movements 1 # of times incontinent of 0 Bowels Additional findings Additional findings: General - No acute distress Eyes - PERRLA, EOM intact ENT no rhinorrhea, no noticeable or palpable swelling, no redness or rash around throat or on face Neck supple, no JVD, no thyromegaly Respiratory: Lungs - diminshed BS, no use of accessary muscles. Cardiovascular - RRR no m/r/g, GI - Normal bowel sounds, no distended, soft. 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 Right distal part of foot erythema and edema. Ulcer is noted over plantar aspect of first phalangeal metatarsal joint, covered by purulent secetion. Hemo/lymphatic/immune no lymphadenopathy Neurological Alert and oriented x 3, no focal neurological deficits. Psychiatry flat affect OBJ DATA Labs CBC & Chem 7: 07/02/20 05:00 07/02/20 04:59 Labs: Abnormal Lab Results 07/02/20 07/02/20 07/02/20 07:56 05:00 04:59 WBC RBC 3.76 L Hgb 8.9 L Hct 30.5 L MCV MCH 23.7 L MCHC 29.2 L RDW 17.4 H Plt Count 559 H Neut % (Auto) 80.6 H Lymph % (Auto) 11.3 L Lymph # (Auto) 1.22 L [place] # (Auto) Absolute Neutrophils 8.72 H Carbon Dioxide 18 L Anion Gap 17.0 H Creatinine Glucose 118 H Hemoglobin A1c Phosphorus Magnesium NT-Pro-B Natriuret Pep Albumin 2.7 L Globulin 4.4 H Albumin/Globulin Ratio 0.6 L Carcinoembryonic Ag Vancomycin Trough 20.7 H* 07/01/20 07/01/20 06/30/20 04:41 04:41 14:00 WBC 14.1 H RBC 3.65 L Hgb 8.6 L Hct 28.4 L MCV 77.8 L MCH 23.6 L MCHC 30.3 L RDW 17.0 H Plt Count 590 H Neut % (Auto) 83.6 H Lymph % (Auto) 8.3 L Lymph # (Auto) 1.17 L [place] # (Auto) Absolute Neutrophils 11.75 H Carbon Dioxide 20 L Anion Gap Creatinine 1.3 H Glucose Hemoglobin A1c Phosphorus Magnesium NT-Pro-B Natriuret Pep Albumin 3.0 L Globulin 4.1 H Albumin/Globulin Ratio 0.7 L Carcinoembryonic Ag 12.7 H Vancomycin Trough 06/30/20 06/30/20 06/30/20 04:26 04:26 04:26 WBC 12.7 H RBC 3.30 L Hgb 7.8 L Hct 25.5 L MCV 77.3 L MCH 23.6 L MCHC 30.6 L RDW 16.5 H Plt Count 555 H Neut % (Auto) 81.7 H Lymph % (Auto) 9.7 L Lymph # (Auto) 1.23 L [place] # (Auto) 0.92 H Absolute Neutrophils 10.33 H Carbon Dioxide Anion Gap Creatinine Glucose Hemoglobin A1c 7.1 H Phosphorus Magnesium NT-Pro-B Natriuret Pep Albumin 2.8 L Globulin 4.1 H Albumin/Globulin Ratio 0.7 L Carcinoembryonic Ag Vancomycin Trough 06/30/20 04:25 WBC RBC Hgb Hct MCV MCH MCHC RDW Plt Count Neut % (Auto) Lymph % (Auto) Lymph # (Auto) [place] # (Auto) Absolute Neutrophils Carbon Dioxide Anion Gap Creatinine Glucose Hemoglobin A1c Phosphorus 2.2 L Magnesium 1.5 L NT-Pro-B Natriuret Pep 2049.0 H Albumin Globulin Albumin/Globulin Ratio Carcinoembryonic Ag Vancomycin Trough Meds: Medications Acetaminophen (Tylenol) 650 mg PO Q6HP PRN; Protocol PRN Reason: Per Pain Protocol/Fever > 101 Hydrocodone Bitart/Acetaminophen ([place] 5/325mg) 1 tab PO Q6HP PRN; Protocol PRN Reason: Per Pain Protocol Dextrose (Dextrose 50%) 0 ml IV UD PRN PRN Reason: Hypoglycemia Diagnostic Test (Pha) (Accu-Chek) 1 each FS ACHS [facility] Last Admin: 07/02/20 21:22 Dose: 1 each Documented by: Docusate Sodium (Colace) 100 mg PO BID [facility] Last Admin: 07/02/20 21:22 Dose: Not Given Documented by: Glucose (Insta-Glucose) 15 gm PO PRN PRN PRN Reason: Hypoglycemia Heparin Sodium (Porcine) (Heparin) 5,000 unit SQ Q8 [facility] Hydralazine HCl (Apresoline) 10 mg IV Q4-6HP PRN PRN Reason: Hypertension Last Admin: 07/02/20 00:21 Dose: 10 mg Documented by: Hydrochlorothiazide (Oretic) 12.5 mg PO DAILY [facility] Last Admin: 07/02/20 09:47 Dose: 12.5 mg Documented by: Sodium Chloride (Sodium Chloride 0.9%) 1,000 mls @ 75 mls/hr IV .[id number] [facility] Last Admin: 07/02/20 13:09 Dose: 75 mls/hr Documented by: Ertapenem 1 gm/ Sodium (Chloride) 50 mls @ 100 mls/hr IV DAILY [facility]; Protocol Last Infusion: 07/02/20 10:17 Dose: Infused Documented by: Sodium Chloride (Sodium Chloride 0.9%) 250 mls @ 20 mls/hr IV .[id number] [facility] Stop: 07/03/20 02:29 Last Admin: 07/02/20 15:22 Dose: Not Given Documented by: Insulin Glargine (Lantus) 22 unit SQ HS [facility] Last Admin: 07/02/20 21:22 Dose: Not Given Documented by: Insulin Human Lispro (Humalog) 0 unit SQ ACHS [facility]; Protocol Last Admin: 07/02/20 21:22 Dose: Not Given Documented by: Lorazepam (Ativan) 0.5 mg IV Q6HP PRN; Protocol PRN Reason: Alcohol Withdrawal Last Admin: 06/30/20 09:57 Dose: 0.5 mg Documented by: Losartan Potassium (Cozaar) 100 mg PO DAILY [facility] Last Admin: 07/02/20 09:46 Dose: 100 mg Documented by: Morphine Sulfate (Morphine) 2 mg IV Q4HP PRN; Protocol PRN Reason: Chest Pain Pantoprazole Sodium (Protonix) 40 mg IV BIDAC [facility] Last Admin: 07/02/20 17:23 Dose: 40 mg Documented by: Prochlorperazine (Compazine) 5 mg IV Q6HP PRN PRN Reason: Nausea And Vomiting Sodium Chloride (Saline Flush) 10 ml IV Q8 [facility] Last Admin: 07/02/20 21:22 Dose: Not Given Documented by: Spironolactone (Aldactone) 25 mg PO QAM [facility] Last Admin: 07/02/20 09:47 Dose: 25 mg Documented by: Vancomycin HCl (Vancomycin Per Pharmacy) 1 order IV UD [facility]; Protocol A/P Narrative A/P Narrative: 1. GI bleeding 2. Hx of colon cancer, stage I 3. Colon cancer? hx of GI bleeding Dr. Knight did a pill camera and upper endoscopy in less than a month ago and found a small area of bleeding in the upper intestine as well as Alpesh's lesions. reported that he had colon cancer about 20 years ago and had 18 inches of his colon removed EGD and colonoscopy were done by Dr. Calloway on 06/30/20 -patient could have colon cancer. Dr. Calloway is on board, really appreciate it. He will probably have a R hemicolectomy 3. Anemia of blood loss Hb 6.8 in the ER Status post 1 unit of PRBC on 06/29. pantoprazole 40mg iv bid transfusion of 3 units of pRBCs 4. Cellulitis of right foot 5. Osteomyelitis of first metatarsal head, right wound culture -staph aureus -sensitive to all antibiotics blood culture pending wound care Dr. Calloway would like to start him on ertapenem and vancomycin because he is concerned about anaerobic and Others. Podiatry Dr. Burgos is on board. Really appreciate it. 6. 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 HTN Continue losartan 100 mg daily, spironolactone 25 mg daily The patient is allergic to amlodipine. I will add hydrochlorothiazide 12.5 mg daily. Hydralazine as needed 8. Electrolytes derangement Repeat mag and Phos in the morning 9. DVT prophylaxis: Lovenox 10. CODE STATUS: Vp Software Spent With Patient Time: Total time spent is greater than 50% in coordination of care (as documented) at patient's floor/unit and/or counseling patient: QUALITY VTE Deep Vein Thrombosis/Pulmonary Embolism Present on Admission: No
[2020-07-03] MEDS: hydrALAZINE 20 MG/ML VIAL IV PRN
[2020-07-03] MEDS: 0.9 % SODIUM CHLORIDE 1,000 ML IV SCH ×2 (04:13→16:33)
[2020-07-03] MEDS: 0.9 % SODIUM CHLORIDE 10 ML SYRINGE IV SCH ×3 (04:15→21:09)
[2020-07-03] MEDS: HEPARIN 5,000 UNIT/ML VIAL SQ SCH ×3 (04:15→21:07)
[2020-07-03] MEDS: PANTOPRAZOLE 40 MG VIAL IV SCH ×2 (07:25→18:02)
[2020-07-03] MEDS: INSULIN LISPRO 1 UNIT/0.01 ML UNIT SQ SCH ×4 (07:25→20:56)
[2020-07-03] MEDS: ERTAPENEM 1 GM in 0.9 % SODIUM CHLORIDE 50 ML IV SCH (08:08)
[2020-07-03] MEDS: HYDROCHLOROTHIAZIDE 12.5 MG CAPSULE PO SCH (08:09)
[2020-07-03] MEDS: DOCUSATE SODIUM 100 MG CAPSULE PO SCH ×2 (08:09→19:26)
[2020-07-03] MEDS: LOSARTAN 50 MG TABLET PO SCH (08:09)
[2020-07-03] MEDS: SPIRONOLACTONE 25 MG TABLET PO SCH (08:09)
[2020-07-03 08:45] LABS: Basophils # (Auto) 0.03 K/mcL (0.00-0.20); Basophils % (Auto) 0.3 % (0.0-2.0); Eosinophils # (Auto) 0.12 K/mcL (0.00-0.70); Eosinophils % (Auto) 1.2 % (0.0-7.0); Hematocrit 27.7 % (41.0-55.0); Hemoglobin 8.5 g/dL (13.5-16.5); Lymphocytes # (Auto) 0.92 K/mcL (1.50-4.80); Lymphocytes % (Auto) 9.2 % (15.0-49.0); Mean Cell Volume 77.2 fL (80.0-100.0); Mean Corpuscular HGB Conc 30.7 g/dL (31.0-36.0); Mean Platelet Volume 8.4 fL (7.4-10.4); Monocytes # (Auto) 0.72 K/mcL (0.10-0.90); Monocytes % (Auto) 7.2 % (1.0-12.0); Neutrophils % (Auto) 82.1 % (38.0-78.0); Platelet Count 569 K/mcL (140-440); RBC 3.59 M/mcL (4.50-5.90); Red Cell Distribution Width 17.3 % (11.5-14.5)
[2020-07-03 09:10] LABS: ALT/SGPT 11 U/L (<40); AST/SGOT 15 U/L (<40); Albumin 2.6 gm/dL (3.2-5.2); Albumin/Globulin Ratio 0.6 (1.0-2.3); Alkaline Phosphatase 72 U/L (39-117); Bilirubin,Total 0.2 mg/dL (0.1-1.0); Blood Urea Nitrogen 12 mg/dL (8-23); Calcium 8.6 mg/dL (8.6-10.4); Carbon Dioxide 23 mmol/L (22-30); Chloride 101 mmol/L (96-108); Glomerular Filtration Rate 86; Glucose 148 mg/dL (70-105)
--- NOTE | 2020-07-03 09:17 | Internal Med Progress Note ---
SUBJECTIVE Subjective Patient information: Note initiated : 07/03/20 at 9:12 am Service Date, if different from initiated Date: [] Patient: Joesph Kang 69 y/o M admitted on 06/29/20 for Foot ulcer. Chief Complaint: [] Interval history: Mr. Kang is a 69 year old M diabetes type 2, high blood pressure and GI bleeding who presented to the ER due to right foot redness and and swelling. Patient is a poor historian. Patient went to see his podiatry yesterday who prescribed Augmentin for him. But the antibiotics does not seem to work. In the ER, he was found to have low hemoglobin 6.8 and a positive guaiac. He has a history of GI bleeding. 3 units of she RBC were ordered. When I saw this patient, he denied headache, dizziness, nausea, vomiting, chest pain, shortness of breath, abdominal pain, hematochezia or any bleeding. 06/30 The patient has a small red bowel movement. Otherwise he denies any new complaints. Blood pressure 153, heart rate 63. The patient is allergic to amlodipine. I will add hydrochlorothiazide 12.5 mg daily. Hemoglobin A1c 7.1 Phos 2.2 Mag 1.5 Phos and mag were given. Repeat mag and Phos in the morning hemoglobin 7.8, it was a 8.4 yesterday. Status post 1 unit of PRBC yesterday. Patient denies regularly drinks alcohol. But patient demonstrated some alcohol withdrawal. CIWA protocol initiated. EGD and colonoscopy were done by Dr. Calloway on 06/30/20 -patient could have colon cancer. 07/01 No new complaints. Temperature 99.2, heart rate 50-70, blood pressure 160/77 -HCTZ was started yesterday WBC 14.1, hemoglobin 8.6, creatinine 1.3 Wound culture showed staph aureus -sensitive to all antibiotics. Dr. Calloway like to start this patient on ertapenem and vancomycin because he is concerned about anaerobic and others. 07/02 Pt is more lethargic and sleepy today. But denies fever/chills. BP is not well controlled BG is well controlled. Afebrile. WBC normalized today. Continue closely monitor 07/03-patient will undergo surgery today. Hemoglobin stable at 8.5. White count 10. MRI brain no evidence of metastatic disease. Await podiatry consult. On antibiotic coverage including ertapenem/vancomycin. Review postop today. Renal function stable. Constitutional Vitals: Vital Signs Temp Pulse Resp BP Pulse Ox 97.9 F 73 15 149/85 94 07/03/20 08:01 07/03/20 00:00 07/03/20 08:01 07/03/20 08:01 07/03/20 08:01 Period Temp Pulse Resp BP Sys/Gray Pulse Ox Last 24 Hr 97.2 F-99.3 F 73 12-24 146-178/49-85 94-100 Intake and Output 07/02/20 07/03/20 07/03/20 21:59 05:59 13:59 Intake Total 1240 Output Total 900 1250 450 Balance -900 -10 -450 Weight 110.994 kg Alert but intermittently confused No telemetry events Nontender abdomen Minimal anxiety Intake & Output: Intake & Output 07/02/20 07/03/20 07/03/20 21:59 05:59 13:59 Intake Total 1240 Output Total 900 1250 450 Balance -900 -10 -450 Weight 110.994 kg Intake: IV 1000 Sodium Chloride 0.9% 1,000 ml @ 1000 75 mls/hr IV .[id number] [facility] Rx#: [id number] Oral 240 Output: Void Amount 900 1250 450 Other: Meal Egg salad sandwich/crackers/cocca Percent of Meal Consumed 100% Feeding Ability Independent Urine Appearance Clear Clear Clear Urine Color Bright Yellow Pale Pale Urine Odor Normal Normal Stool Size Small Moderate Stool Color Dark Red Blood Brown Blood Tinged Dark Red Blood Blood Tinged Stool Consistency Soft Soft Loose # Voids 1 OBJ DATA Labs CBC & Chem 7: 07/03/20 06:38 07/03/20 06:38 Labs: Abnormal Lab Results 07/03/20 07/03/20 07/02/20 06:38 06:38 07:56 WBC RBC 3.59 L Hgb 8.5 L Hct 27.7 L MCV 77.2 L MCH 23.7 L MCHC 30.7 L RDW 17.3 H Plt Count 569 H Neut % (Auto) 82.1 H Lymph % (Auto) 9.2 L Lymph # (Auto) 0.92 L Absolute Neutrophils 8.22 H Carbon Dioxide Anion Gap Creatinine Glucose 148 H Albumin 2.6 L Globulin 4.0 H Albumin/Globulin Ratio 0.6 L Carcinoembryonic Ag Vancomycin Trough 20.7 H* 07/02/20 07/02/20 07/01/20 05:00 04:59 04:41 WBC RBC 3.76 L Hgb 8.9 L Hct 30.5 L MCV MCH 23.7 L MCHC 29.2 L RDW 17.4 H Plt Count 559 H Neut % (Auto) 80.6 H Lymph % (Auto) 11.3 L Lymph # (Auto) 1.22 L Absolute Neutrophils 8.72 H Carbon Dioxide 18 L 20 L Anion Gap 17.0 H Creatinine 1.3 H Glucose 118 H Albumin 2.7 L 3.0 L Globulin 4.4 H 4.1 H Albumin/Globulin Ratio 0.6 L 0.7 L Carcinoembryonic Ag Vancomycin Trough 07/01/20 06/30/20 04:41 14:00 WBC 14.1 H RBC 3.65 L Hgb 8.6 L Hct 28.4 L MCV 77.8 L MCH 23.6 L MCHC 30.3 L RDW 17.0 H Plt Count 590 H Neut % (Auto) 83.6 H Lymph % (Auto) 8.3 L Lymph # (Auto) 1.17 L Absolute Neutrophils 11.75 H Carbon Dioxide Anion Gap Creatinine Glucose Albumin Globulin Albumin/Globulin Ratio Carcinoembryonic Ag 12.7 H Vancomycin Trough Meds: Medications Acetaminophen (Tylenol) 650 mg PO Q6HP PRN; Protocol PRN Reason: Per Pain Protocol/Fever > 101 Hydrocodone Bitart/Acetaminophen ([place] 5/325mg) 1 tab PO Q6HP PRN; Protocol PRN Reason: Per Pain Protocol Dextrose (Dextrose 50%) 0 ml IV UD PRN PRN Reason: Hypoglycemia Diagnostic Test (Pha) (Accu-Chek) 1 each FS ACHS [facility] Last Admin: 07/03/20 07:21 Dose: 1 each Documented by: Docusate Sodium (Colace) 100 mg PO BID [facility] Last Admin: 07/03/20 08:09 Dose: Not Given Documented by: Glucose (Insta-Glucose) 15 gm PO PRN PRN PRN Reason: Hypoglycemia Heparin Sodium (Porcine) (Heparin) 5,000 unit SQ Q8 [facility] Last Admin: 07/03/20 04:15 Dose: Not Given Documented by: Hydralazine HCl (Apresoline) 10 mg IV Q4-6HP PRN PRN Reason: Hypertension Last Admin: 07/03/20 00:00 Dose: 10 mg Documented by: Hydrochlorothiazide (Oretic) 12.5 mg PO DAILY [facility] Last Admin: 07/03/20 08:09 Dose: 12.5 mg Documented by: Sodium Chloride (Sodium Chloride 0.9%) 1,000 mls @ 75 mls/hr IV .[id number] [facility] Last Admin: 07/03/20 04:13 Dose: 75 mls/hr Documented by: Ertapenem 1 gm/ Sodium (Chloride) 50 mls @ 100 mls/hr IV DAILY [facility]; Protocol Last Admin: 07/03/20 08:08 Dose: 100 mls/hr Documented by: Insulin Glargine (Lantus) 22 unit SQ HS [facility] Last Admin: 07/02/20 21:22 Dose: Not Given Documented by: Insulin Human Lispro (Humalog) 0 unit SQ ACHS [facility]; Protocol Last Admin: 07/03/20 07:25 Dose: 1 units Documented by: Lorazepam (Ativan) 0.5 mg IV Q6HP PRN; Protocol PRN Reason: Alcohol Withdrawal Last Admin: 06/30/20 09:57 Dose: 0.5 mg Documented by: Losartan Potassium (Cozaar) 100 mg PO DAILY [facility] Last Admin: 07/03/20 08:09 Dose: 100 mg Documented by: Morphine Sulfate (Morphine) 2 mg IV Q4HP PRN; Protocol PRN Reason: Chest Pain Pantoprazole Sodium (Protonix) 40 mg IV BIDAC [facility] Last Admin: 07/03/20 07:25 Dose: 40 mg Documented by: Prochlorperazine (Compazine) 5 mg IV Q6HP PRN PRN Reason: Nausea And Vomiting Sodium Chloride (Saline Flush) 10 ml IV Q8 [facility] Last Admin: 07/03/20 04:15 Dose: Not Given Documented by: Spironolactone (Aldactone) 25 mg PO QAM [facility] Last Admin: 07/03/20 08:09 Dose: 25 mg Documented by: Vancomycin HCl (Vancomycin Per Pharmacy) 1 order IV UD [facility]; Protocol A/P Assessment and plan (1) Acute GI hemorrhage: Status: Acute Narrative A/P Narrative: * COLON Mass-we will undergo surgery today. * GI bleeding-secondary to colon mass. Status post 3 PRBC transfusion. Hemogl obin 8.4, status post colonoscopy with Dr. Aponte/history of colon cancer 20 years ago with 18 inch partial colectomy. Will undergo hemicolectomy * Anemia of blood loss status post 3 units PRBC, on PPI twice daily * Cellulitis of right foot- Osteomyelitis of first metatarsal head, right , wound culture -MSSA. On ertapenem/vancomycin. Podiatry Dr. Burgos is on board. Really appreciate it. 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
--- NOTE | 2020-07-03 09:39 | General Surgery Progress Note ---
SUBJECTIVE Subjective Patient information: Note initiated : 07/03/20 at 9:36 am Service Date, if different from initiated Date: [] Patient: Joesph Kang 69 y/o M admitted on 06/29/20 for Foot ulcer. Chief Complaint: S: feeling well this morning, Ready for surgery MRI brain and liver shows no metastatic disease in these organs. CT chest neg for lung mets as well CEA elevated Awaiting pathology on colon mass but presumed adenoCA Unfortunately colon mass is now intusscepting into colon, it is also on endoscopy near obstructing, and has been bleeding with several blood transfusions this admission. Given this I think is is prudent to proceed with surgery today ahead of final pathology. O: VSS LCTAB RRR Abd soft, somewhat distended, nontender periphery warm A/P A/P 69 yo man HD5 admitted for diabetic R foot infection, found to have a GIB with colonoscopy revealing a large R colon mass c/w colon cancer. Questionable R liver mets on CT demonstrated to by cysts on MRI yesterday. NO evidence of M1 disease. Given issues of intussception and bleeding decision to proceed today to surgery. Significant thought into effects and management of pts concurent ventral hernias. He has 4 midline defects following failed mesh repair. Largest [id number] inferiorly. Will likely need component separation/TAR with very large prosthesis. This is not the time for this with a cancer resection. I do not want to disrupt tissue plains with an off midline approach. Plan to enter through hernia and close hernia sac. buttress if needed with vicryl mesh. and abdominal binder. Plan: OR today for exlap and R colectomy Discussed vicryl mesh hernia repair Risks of bleeding, infection, eviceration, wound dehiscence, injury to structures all discussed All questions answered . Pt is ready to proceed Dani Calloway MD Surgery Constitutional Vitals: Vital Signs Temp Pulse Resp BP Pulse Ox 36.6 C 73 15 149/85 94 07/03/20 08:01 07/03/20 00:00 07/03/20 08:01 07/03/20 08:01 07/03/20 08:01 Period Temp Pulse Resp BP Sys/Gray Pulse Ox Last 24 Hr 36.2 C-37.4 C 73 12-24 146-178/49-85 94-100 Intake and Output 07/02/20 07/03/20 07/03/20 21:59 05:59 13:59 Intake Total 1240 Output Total 900 1250 450 Balance -450 Weight 110.994 kg Intake & Output: Intake & Output 07/02/20 07/03/20 07/03/20 21:59 05:59 13:59 Intake Total 1240 Output Total 900 1250 450 Balance -450 Weight 110.994 kg Intake: IV 1000 Sodium Chloride 0.9% 1,000 ml @ 1000 75 mls/hr IV .[id number] [facility] Rx#: [id number] Oral 240 Output: Void Amount 900 1250 450 Other: Meal Egg salad sandwich/crackers/cocca Percent of Meal Consumed 100% Feeding Ability Independent Urine Appearance Clear Clear Clear Urine Color Bright Yellow Pale Pale Urine Odor Normal Normal Stool Size Small Moderate Stool Color Dark Red Blood Brown Blood Tinged Dark Red Blood Blood Tinged Stool Consistency Soft Soft Loose # Voids 1 A/P Time Spent With Patient Time: Total time spent is greater than 50% in coordination of care (as documented) at patient's floor/unit and/or counseling patient:
[2020-07-03] MEDS ORDERED: ALBUMIN HUMAN 25 GM/100 ML BAG IV ONE (09:49)
[2020-07-03 10:19] LABS: INR 1.1 (0.9-1.1); Prothrombin Time 14.9 sec (11.9-14.5)
[2020-07-03] MEDS: VANCOMYCIN 1,500 MG in 0.9 % SODIUM CHLORIDE 500 ML IV SCH (11:05)
--- NOTE | 2020-07-03 12:19 | Surgical Pathology Report ---
Histology Microscopic Diagnosis Specimen A- DUODENUM, BIOPSY: -- DUODENAL MUCOSA WITH FOCAL VILLOUS BLUNTING AND GASTRIC SURFACE EPITHELIAL TYPE METAPLASIA. -- GASTRIC SURFACE TYPE EPITHELIAL METAPLASIA IDENTIFIED ON ALCIAN BLUE/PAS STAIN (ADEQUATE TECHNICAL CONTROL). -- NO INCREASE IN INTRAEPITHELIAL LYMPHOCYTES IDENTIFIED. Clinical History GI bleeding. Procedural Impression Mild duodenitis; polyps; large obstructing mass - presumed adenocarcinoma (at 90 cm). Gross Description Received in formalin labeled duodenum biopsy, is one fragment of clark brown soft tissue that measures up to 0.3 cm. Totally submitted in one cassette. Microscopic Diagnosis Specimen B- COLON, LEFT, POLYPECTOMY: -- TUBULAR ADENOMA. Gross Description Received in formalin labeled left colon polyp, is a clark-brown soft tissue fragment measuring up to 0.4 cm. Totally submitted in one cassette. Microscopic Diagnosis Specimen C- COLON, MASS, BIOPSY: -- INVASIVE POORLY DIFFERENTIATED ADENOCARCINOMA WITH SIGNET RING FEATURES MOST CONSISTENT WITH COLORECTAL PRIMARY. Microscopic Description Sections show a poorly differentiated adenocarcinoma with signet ring features. Immunohistochemical and special stains are performed. Cells of interest: Malignant cells. CK7: Negative. CK20: Positive. CDX2: Positive. Mucicarmine: Highlights associated mucin. Interpretation: Invasive poorly differentiated adenocarcinoma with signet ring features most consistent with colorectal primary. Gross Description Received in formalin labeled colon mass, are three fragments of white irwin to clark-brown soft tissue ranging in size from 0.3 to 0.4 cm. Totally submitted in one cassette. IHC Disclaimer Some of the tests reported may not have been cleared or approved by the [place].S. Food Drug Administration (FDA). However, the FDA has determined that such clearance or approval is not necessary. Pursuant to the requirements of CLIA, this laboratory has established and verified the accuracy and precision of all tests, and additional information about these tests is available upon request. All technical controls are adequate. Microscopic Diagnosis Specimen D- COLON, 70 cm, POLYPECTOMY: -- ONE TUBULAR ADENOMA. Gross Description Received in formalin labeled polyp 70 cm, are two fragments of clark brown soft tissue 0.1 and 0.3 cm. Totally submitted in one cassette. Microscopic Diagnosis Specimen E- COLON, 55 cm, POLYPECTOMY: -- TWO FRAGMENTS OF TUBULAR ADENOMA(S). (EBD:adj) Gross Description Received in formalin labeled 55 cm polyps, are four fragments of clark brown soft tissue ranging in size from 0.2 to 0.4 cm. Totally submitted in one cassette. (EBD:adj) Electronically Signed Cintia Mckay MD, FCAP Electronically Signed 07/03/2020 12:17 PM
[2020-07-03] MEDS ORDERED: BUPIVACAINE W/EPI 0.25% 50 ML VIAL IJ ONE (12:38)
[2020-07-03] MEDS ORDERED: diphenhydrAMINE 50 MG/ML VIAL IV PRN (16:57)
[2020-07-03] MEDS ORDERED: IPRATROPIUM/ALBUTEROL 3 ML AMPUL.NEB NEB PRN (16:57)
[2020-07-03] MEDS ORDERED: NALOXONE HCL 0.4 MG/ML VIAL IV PRN (16:57)
[2020-07-03] MEDS ORDERED: PROMETHAZINE 25 MG/ML VIAL IV PRN (16:57)
[2020-07-03] MEDS ORDERED: METOPROLOL TARTRATE 5 MG/5 ML VIAL IV PRN (16:57)
[2020-07-03] MEDS ORDERED: fentaNYL 100 MCG/2 ML VIAL IV PRN (16:57)
[2020-07-03] MEDS ORDERED: METHOCARBAMOL 1,000 MG/10 ML VIAL IV PRN (16:57)
[2020-07-03] MEDS ORDERED: ePHEDrine 50 MG/ML AMPUL IV PRN (16:57)
[2020-07-03] MEDS ORDERED: ONDANSETRON 4 MG/2 ML VIAL IV PRN (16:57)
[2020-07-03] MEDS ORDERED: ATROPINE SULFATE 0.4 MG/ML VIAL IV PRN (16:57)
[2020-07-03] MEDS ORDERED: ACETAMINOPHEN 1,000 MG/100 ML BAG IV ONE (16:57)
[2020-07-03] MEDS ORDERED: FLUMAZENIL 0.1 MG/ML ML IV PRN (16:57)
[2020-07-03] MEDS ORDERED: LACTATED RINGERS 1,000 ML IV SCH (17:00)
--- NOTE | 2020-07-03 17:52 | Brief Operative Note ---
Brief Operative Note Date of procedure: 07/03/20 Pre-op diagnosis: R colon cancer, large czech cheese ventral hernia defect Post-op diagnosis: other (1) Large R colon cancer, 2) large vental hernia defect 20x 13cm, 3) segment 4B hepatic nodule, 4) serosal and peritoneal implants within RUQ. ) Procedure: 1) Exploratory laperotomy 2) R hemicolectomy with stapled side to side functional end to end ileocolic anastamosis 3) Biopsy of hepatic nodule 4) Biopsies of peritoneal implants 5) Ventral hernia repair of [id number] hernia defect with vicryl mesh underlay Grafts/Implants: Yes (vicryl mesh) Anesthesia: GETA Findings: 1) large czech cheese ventral defects 2) large tumor in R colon easily identified with tattoo 10+ cm distal margin 3) Multiple small mucin like appearing implants in RUQ - concerning for local intra peritoneal spread. 4) Vicryl mesh used to lower risk of eviceration - primary facial closure not obtained Complications: none Surgeon: Dani Calloway Estimated blood loss (cc): 50 Specimens Removed/Pathology: other (1) R colon, 2) segment 4B liver nodule, 3) peritoneal implants) Condition: stable Disposition: PACU
[2020-07-03] MEDS: morphine 2 MG/ML VIAL IV PRN ×3 (19:48→22:06)
[2020-07-04] MEDS: hydrALAZINE 20 MG/ML VIAL IV PRN ×3 (01:09→23:49)
[2020-07-04] MEDS: morphine 2 MG/ML VIAL IV PRN ×4 (01:10→07:52)
[2020-07-04] MEDS: INSULIN GLARGINE, HUMAN 1 UNIT/0.01 ML SQ SCH (02:03)
[2020-07-04 05:04] LABS: Basophils # (Auto) 0.03 K/mcL (0.00-0.20); Basophils % (Auto) 0.1 % (0.0-2.0); Eosinophils # (Auto) 0 K/mcL (0.00-0.70); Eosinophils % (Auto) 0 % (0.0-7.0); Hemoglobin 8.3 g/dL (13.5-16.5); Lymphocytes # (Auto) 0.47 K/mcL (1.50-4.80); Lymphocytes % (Auto) 1.9 % (15.0-49.0); Mean Cell Volume 77.6 fL (80.0-100.0); Mean Corpuscular HGB Conc 30.7 g/dL (31.0-36.0); Mean Platelet Volume 8.5 fL (7.4-10.4); Monocytes # (Auto) 0.75 K/mcL (0.10-0.90); Platelet Count 569 K/mcL (140-440); RBC 3.48 M/mcL (4.50-5.90); Red Cell Distribution Width 17.2 % (11.5-14.5); WBC 24.8 K/mcL (4.5-11.0)
[2020-07-04 05:29] LABS: ALT/SGPT 15 U/L (<40); AST/SGOT 18 U/L (<40); Albumin 2.6 gm/dL (3.2-5.2); Albumin/Globulin Ratio 0.7 (1.0-2.3); Alkaline Phosphatase 63 U/L (39-117); Bilirubin,Total 1.1 mg/dL (0.1-1.0); Blood Urea Nitrogen 15 mg/dL (8-23); Calcium 8.3 mg/dL (8.6-10.4); Carbon Dioxide 21 mmol/L (22-30); Chloride 100 mmol/L (96-108); Globulin 3.8 gm/dL (2.2-3.7); Glomerular Filtration Rate 61; Glucose 229 mg/dL (70-105)
[2020-07-04] MEDS: 0.9 % SODIUM CHLORIDE 10 ML SYRINGE IV SCH ×3 (06:27→22:08)
[2020-07-04] MEDS: HEPARIN 5,000 UNIT/ML VIAL SQ SCH ×3 (06:27→22:08)
[2020-07-04] MEDS: PANTOPRAZOLE 40 MG VIAL IV SCH ×2 (07:52→17:21)
[2020-07-04] MEDS: 0.9 % SODIUM CHLORIDE 1,000 ML IV SCH ×3 (09:48→22:09)
[2020-07-04] MEDS: INSULIN LISPRO 1 UNIT/0.01 ML UNIT SQ SCH ×4 (09:54→20:47)
[2020-07-04] MEDS: VANCOMYCIN 1,500 MG in 0.9 % SODIUM CHLORIDE 500 ML IV SCH (09:54)
[2020-07-04] MEDS: ERTAPENEM 1 GM in 0.9 % SODIUM CHLORIDE 50 ML IV SCH (09:54)
[2020-07-04] MEDS: SPIRONOLACTONE 25 MG TABLET PO SCH (10:00)
[2020-07-04] MEDS: LOSARTAN 50 MG TABLET PO SCH (10:00)
[2020-07-04] MEDS: HYDROCHLOROTHIAZIDE 12.5 MG CAPSULE PO SCH (10:00)
[2020-07-04] MEDS: DOCUSATE SODIUM 100 MG CAPSULE PO SCH (10:00)
[2020-07-04] MEDS ORDERED: LACTATED RINGERS 500 ML IV ONE (10:44)
[2020-07-04] MEDS ORDERED: INSULIN GLARGINE, HUMAN 1 UNIT/0.01 ML SQ ONE (11:26)
[2020-07-04] MEDS ORDERED: ACETAMINOPHEN 325 MG TABLET PO SCH (11:30)
[2020-07-04] MEDS ORDERED: METHOCARBAMOL 750 MG TABLET PO SCH (11:30)
[2020-07-04] MEDS ORDERED: 0.9 % SODIUM CHLORIDE 500 ML IV ONE (13:35)
--- NOTE | 2020-07-04 13:46 | General Surgery Progress Note ---
SUBJECTIVE Subjective Patient information: Note initiated : 07/04/20 at 1:42 pm Service Date, if different from initiated Date: [] Patient: Joesph Kang 69 y/o M admitted on 06/29/20 for Foot ulcer. Chief Complaint: colon cancer S: pain well controlled, no flatus, no BM O: VSS UOP 28hr NAD resting breathing easily on RA RRR Abd soft, minimally tender nondistended, NGT with essentially no output today periphery warm R foot wound with minimal erythema, some fibrinous exudate A/P 69 yo man POD1 after R hemicolectomy, peritoneal biospies, and hepatic biopsy with vicryl mesh ventral hernia repair. Admitted for diabetic R foot infection, found to have a GIB with colonoscopy revealing a large R colon mass c/w colon cancer. Questionable R liver mets on CT demonstrated to by cysts on MRI yesterday solid leasion biosied in segment 4b. may have local peritoneal spread Plan: fluid bolus multimodal pain control OK to remove NGT ongoing vanco and ertapenum for diabtic foot infection - f/u cultures Dani Calloway MD Surgery Constitutional Vitals: Vital Signs Temp Pulse Resp BP Pulse Ox 36.8 C 52 L 12 160/84 99 07/04/20 12:01 07/04/20 08:01 07/04/20 12:01 07/04/20 12:01 07/04/20 12:01 Period Temp Pulse Resp BP Sys/Gray Pulse Ox Last 24 Hr 36.2 C-37.1 C 48-69 - 119-195/56-136 97-100 Intake and Output 07/03/20 07/04/20 07/04/20 21:59 05:59 13:59 Intake Total 5400 1050 Output Total 300 650 225 Balance 5100 -650 825 Weight 111.947 kg Intake & Output: Intake & Output 07/03/20 07/04/20 07/04/20 21:59 05:59 13:59 Intake Total 5400 1050 Output Total 300 650 225 Balance 5100 -650 825 Weight 111.947 kg Intake: IV 1100 1050 Sodium Chloride 0.9% 1,000 ml @ 1000 75 mls/hr IV .[id number] [facility] Rx#: [id number] INVanz 1 GM In Sodium Chloride 50 0.9% 50 ml @ 100 mls/hr IV DAILY [facility] Rx#:[id number] Lactated Ringers 500 ml @ Wide 500 Open IV B[facility] ONE Rx#:[id number] Vancomycin 1,500 mg In Sodium 500 Chloride 0.9% 500 ml @ 333.3 mls/hr IV Q24H [facility] Rx#: [id number] IV - Manual Only 4300 Output: Urine Catheter Amount 300 650 225 Other: Urine Appearance Clear Clear Uretheral (Smalls) Clear Urine Color Dark Yellow Dark Yellow Uretheral (Smalls) Bright Yellow Blood Tinged A/P Time Spent With Patient Time: Total time spent is greater than 50% in coordination of care (as documented) at patient's floor/unit and/or counseling patient:
[2020-07-04] MEDS: METHOCARBAMOL 750 MG TABLET PO SCH ×3 (15:42→23:40)
[2020-07-04] MEDS: ACETAMINOPHEN 325 MG TABLET PO SCH ×3 (15:43→23:40)
[2020-07-04] MEDS: GABAPENTIN 300 MG CAPSULE PO SCH (20:48)
--- NOTE | 2020-07-04 22:08 | Internal Med Progress Note ---
SUBJECTIVE Subjective Patient information: Note initiated : 07/04/20 at 10:07 pm Service Date, if different from initiated Date: [] Patient: Joesph Kang 69 y/o M admitted on 06/29/20 for Foot ulcer. Chief Complaint: [] Interval history: 07/04Mr. Pearl is a 69 year old M diabetes type 2, high blood pressure and GI bleeding who presented to the ER due to right foot redness and and swelling. Patient is a poor historian. Patient went to see his podiatry yesterday who prescribed Augmentin for him. But the antibiotics does not seem to work. In the ER, he was found to have low hemoglobin 6.8 and a positive guaiac. He has a history of GI bleeding. 3 units of she RBC were ordered. When I saw this patient, he denied headache, dizziness, nausea, vomiting, chest pain, shortness of breath, abdominal pain, hematochezia or any bleeding. 06/30 The patient has a small red bowel movement. Otherwise he denies any new complaints. Blood pressure 153, heart rate 63. The patient is allergic to amlodipine. I will add hydrochlorothiazide 12.5 mg daily. Hemoglobin A1c 7.1 Phos 2.2 Mag 1.5 Phos and mag were given. Repeat mag and Phos in the morning hemoglobin 7.8, it was a 8.4 yesterday. Status post 1 unit of PRBC yesterday. Patient denies regularly drinks alcohol. But patient demonstrated some alcohol withdrawal. CIWA protocol initiated. EGD and colonoscopy were done by Dr. Calloway on 06/30/20 -patient could have colon cancer. 07/01 No new complaints. Temperature 99.2, heart rate 50-70, blood pressure 160/77 -HCTZ was started yesterday WBC 14.1, hemoglobin 8.6, creatinine 1.3 Wound culture showed staph aureus -sensitive to all antibiotics. Dr. Calloway like to start this patient on ertapenem and vancomycin because he is concerned about anaerobic and others. 07/02 Pt is more lethargic and sleepy today. But denies fever/chills. BP is not well controlled BG is well controlled. Afebrile. WBC normalized today. Continue closely monitor 07/03-patient will undergo surgery today. Hemoglobin stable at 8.5. White count 10. MRI brain no evidence of metastatic disease. Await podiatry consult. On antibiotic coverage including ertapenem/vancomycin. Review postop today. Renal function stable. 07/04-patient postop day 1 doing well. White count 24.8. On antibiotic coverage. Continue postop care per surgery. Creatinine uptrending at 1.2. Constitutional Vitals: Vital Signs Temp Pulse Resp BP Pulse Ox 98.1 F 78 16 151/62 99 07/04/20 19:35 07/04/20 19:40 07/04/20 19:35 07/04/20 19:35 07/04/20 19:40 Period Temp Pulse Resp BP Sys/Gray Pulse Ox Last 24 Hr 98.1 F-98.8 F 50-78 12- 138-195/60-136 97-100 Intake and Output 07/04/20 07/04/20 07/05/20 13:59 21:59 05:59 Intake Total 1050 700 Output Total 225 330 Balance 825 370 Weight 114.577 kg Patient Weight 07/05/20 05:59 Weight 114.577 kg no telemetry events No significant postop pain Resting comfortably Intake & Output: Intake & Output 07/04/20 07/04/20 07/05/20 13:59 21:59 05:59 Intake Total 1050 700 Output Total 225 330 Balance 825 370 Weight 114.577 kg Intake: IV 1050 500 Sodium Chloride 0.9% 500 ml @ 500 Wide Open IV [facility] Rx#: [id number] INVanz 1 GM In Sodium Chloride 50 0.9% 50 ml @ 100 mls/hr IV DAILY [facility] Rx#:[id number] Lactated Ringers 500 ml @ Wide 500 Open IV [facility] Rx#:[id number] Vancomycin 1,500 mg In Sodium 500 Chloride 0.9% 500 ml @ 333.3 mls/hr IV Q24H [facility] Rx#: [id number] Oral 200 Output: Gastric Drainage 50 NG/OG 50 Urine Catheter Amount 225 280 Void Amount 0 Other: Urine Appearance Clear Clear Uretheral (Smalls) Clear Urine Color Dark Yellow Dark Yellow Uretheral (Smalls) Bright Yellow OBJ DATA Labs CBC & Chem 7: 07/05/20 08:05 07/04/20 04:15 Labs: Abnormal Lab Results 07/04/20 07/04/20 07/03/20 04:15 04:15 08:46 WBC 24.8 H RBC 3.48 L Hgb 8.3 L Hct 27.0 L MCV 77.6 L MCH 23.9 L MCHC 30.7 L RDW 17.2 H Plt Count 569 H Neut % (Auto) 95.0 H Lymph % (Auto) 1.9 L Lymph # (Auto) 0.47 L Absolute Neutrophils 23.54 H PT APTT 40.8 H Sodium 132 L Carbon Dioxide 21 L Anion Gap Glucose 229 H Calcium 8.3 L Total Bilirubin 1.1 H Albumin 2.6 L Globulin 3.8 H Albumin/Globulin Ratio 0.7 L Vancomycin Trough 07/03/20 07/03/20 07/03/20 08:46 06:38 06:38 WBC RBC 3.59 L Hgb 8.5 L Hct 27.7 L MCV 77.2 L MCH 23.7 L MCHC 30.7 L RDW 17.3 H Plt Count 569 H Neut % (Auto) 82.1 H Lymph % (Auto) 9.2 L Lymph # (Auto) 0.92 L Absolute Neutrophils 8.22 H PT 14.9 H APTT Sodium Carbon Dioxide Anion Gap Glucose 148 H Calcium Total Bilirubin Albumin 2.6 L Globulin 4.0 H Albumin/Globulin Ratio 0.6 L Vancomycin Trough 07/02/20 07/02/20 07/02/20 07:56 05:00 04:59 WBC RBC 3.76 L Hgb 8.9 L Hct 30.5 L MCV MCH 23.7 L MCHC 29.2 L RDW 17.4 H Plt Count 559 H Neut % (Auto) 80.6 H Lymph % (Auto) 11.3 L Lymph # (Auto) 1.22 L Absolute Neutrophils 8.72 H PT APTT Sodium Carbon Dioxide 18 L Anion Gap 17.0 H Glucose 118 H Calcium Total Bilirubin Albumin 2.7 L Globulin 4.4 H Albumin/Globulin Ratio 0.6 L Vancomycin Trough 20.7 H* Meds: Medications Acetaminophen (Tylenol) 650 mg PO Q6 [facility]; Protocol Last Admin: 07/04/20 19:08 Dose: 650 mg Documented by: Dextrose (Dextrose 50%) 0 ml IV UD PRN PRN Reason: Hypoglycemia Diagnostic Test (Pha) (Accu-Chek) 1 each FS ACHS [facility] Last Admin: 07/04/20 20:41 Dose: 1 each Documented by: Gabapentin (Neurontin) 600 mg PO HS [facility] Last Admin: 07/04/20 20:48 Dose: 600 mg Documented by: Glucose (Insta-Glucose) 15 gm PO PRN PRN PRN Reason: Hypoglycemia Heparin Sodium (Porcine) (Heparin) 5,000 unit SQ Q8 [facility] Last Admin: 07/04/20 13:44 Dose: 5,000 unit Documented by: Hydralazine HCl (Apresoline) 10 mg IV Q4-6HP PRN PRN Reason: Hypertension Last Admin: 07/04/20 15:42 Dose: 10 mg Documented by: Sodium Chloride (Sodium Chloride 0.9%) 1,000 mls @ 75 mls/hr IV .[id number] [facility] Last Admin: 07/04/20 20:49 Dose: Not Given Documented by: Ertapenem 1 gm/ Sodium (Chloride) 50 mls @ 100 mls/hr IV DAILY [facility]; Protocol Last Infusion: 07/04/20 10:30 Dose: Infused Documented by: Vancomycin HCl 1,500 mg/ (Sodium Chloride) 500 mls @ 333.3 mls/hr IV Q24H [facility] Last Infusion: 07/04/20 11:30 Dose: Infused Documented by: Insulin Human Lispro (Humalog) 0 unit SQ ACHS [facility]; Protocol Last Admin: 07/04/20 20:47 Dose: 1 units Documented by: Losartan Potassium (Cozaar) 100 mg PO DAILY [facility] Last Admin: 07/04/20 10:00 Dose: 100 mg Documented by: Methocarbamol (Robaxin) 750 mg PO Q6 [facility] Last Admin: 07/04/20 19:08 Dose: 750 mg Documented by: Morphine Sulfate (Morphine) 2 mg IV Q1HP PRN; Protocol PRN Reason: Per Pain Protocol Last Admin: 07/04/20 07:52 Dose: 2 mg Documented by: Pantoprazole Sodium (Protonix) 40 mg IV BIDAC [facility] Last Admin: 07/04/20 17:21 Dose: 40 mg Documented by: Prochlorperazine (Compazine) 5 mg IV Q6HP PRN PRN Reason: Nausea And Vomiting Sodium Chloride (Saline Flush) 10 ml IV Q8 [facility] Last Admin: 07/04/20 13:44 Dose: 10 ml Documented by: [facility] ([facility]) [facility] [place] [facility] Admin: 07/04/20 10:00 Dose: 25 mg Documented by: Vancomycin HCl (Vancomycin Per Pharmacy) 1 order IV [facility] [place]; Protocol A/P Assessment and plan (1) Acute GI hemorrhage: Status: Acute Narrative A/P Narrative: * COLON Mass-post op day 1, doing well. Continue management per surgery * Leukocytosis over 24. On antibiotic coverage. Likely secondary to colon mass. Continue monitoring. Afebrile and stable hemodynamics at this time with no evidence of sepsis * GI bleeding-secondary to colon mass. Status post 3 PRBC transfusion. Hemoglobin 8.4, status post colonoscopy with Dr. Aponte/history of colon cancer 20 years ago with 18 inch partial colectomy. Will undergo hemicolectomy * Mild NIYA-monitor renal function * Anemia of blood loss status post 3 units PRBC, on PPI twice daily * Cellulitis of right foot- Osteomyelitis of first metatarsal head, right , wound culture -MSSA. On ertapenem/vancomycin. Podiatry Dr. Burgos is on board. Really appreciate it. 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
[2020-07-05] MEDS: METHOCARBAMOL 750 MG TABLET PO SCH ×4 (05:34→23:20)
[2020-07-05] MEDS: ACETAMINOPHEN 325 MG TABLET PO SCH ×4 (05:34→23:20)
[2020-07-05] MEDS: HEPARIN 5,000 UNIT/ML VIAL SQ SCH (05:35)
[2020-07-05] MEDS: 0.9 % SODIUM CHLORIDE 10 ML SYRINGE IV SCH ×3 (05:36→22:43)
[2020-07-05] MEDS: 0.9 % SODIUM CHLORIDE 1,000 ML IV SCH ×2 (07:53→22:42)
[2020-07-05] MEDS: INSULIN LISPRO 1 UNIT/0.01 ML UNIT SQ SCH ×4 (08:00→21:29)
[2020-07-05] MEDS: PANTOPRAZOLE 40 MG VIAL IV SCH ×2 (08:07→17:13)
[2020-07-05] MEDS: LOSARTAN 50 MG TABLET PO SCH (08:09)
[2020-07-05] MEDS: SPIRONOLACTONE 25 MG TABLET PO SCH (08:09)
[2020-07-05 08:38] LABS: Basophils # (Auto) 0.02 K/mcL (0.00-0.20); Basophils % (Auto) 0.2 % (0.0-2.0); Eosinophils # (Auto) 0.06 K/mcL (0.00-0.70); Eosinophils % (Auto) 0.5 % (0.0-7.0); Hematocrit 26.2 % (41.0-55.0); Hemoglobin 7.8 g/dL (13.5-16.5); Lymphocytes # (Auto) 0.96 K/mcL (1.50-4.80); Lymphocytes % (Auto) 7.7 % (15.0-49.0); Mean Cell Volume 78.9 fL (80.0-100.0); Mean Corpuscular HGB Conc 29.8 g/dL (31.0-36.0); Mean Platelet Volume 8.3 fL (7.4-10.4); Monocytes # (Auto) 0.76 K/mcL (0.10-0.90); Monocytes % (Auto) 6.1 % (1.0-12.0); Neutrophils % (Auto) 85.5 % (38.0-78.0); Platelet Count 543 K/mcL (140-440); RBC 3.32 M/mcL (4.50-5.90); Red Cell Distribution Width 17.5 % (11.5-14.5); WBC 12.4 K/mcL (4.5-11.0)
[2020-07-05 09:02] LABS: ALT/SGPT 18 U/L (<40); AST/SGOT 17 U/L (<40); Albumin 2.5 gm/dL (3.2-5.2); Albumin/Globulin Ratio 0.6 (1.0-2.3); Alkaline Phosphatase 60 U/L (39-117); Bilirubin,Direct < 0.2 mg/dL (<0.3); Bilirubin,Total 0.2 mg/dL (0.1-1.0); Blood Urea Nitrogen 19 mg/dL (8-23); Calcium 8.2 mg/dL (8.6-10.4); Carbon Dioxide 21 mmol/L (22-30); Chloride 101 mmol/L (96-108); Globulin 3.9 gm/dL (2.2-3.7); Glomerular Filtration Rate 76; Glucose 117 mg/dL (70-105); Lactate Dehydrogenase 130 U/L (135-225); Triglycerides 120 mg/dL (<150); Uric Acid 7.4 mg/dL (2.5-8.0)
--- NOTE | 2020-07-05 09:04 | Internal Med Progress Note ---
SUBJECTIVE Subjective Patient information: Note initiated : 07/05/20 at 9:01 am Service Date, if different from initiated Date: [] Patient: Joesph Kang a 69 y/o M admitted on 06/29/20 for Foot ulcer. Chief Complaint: [] Interval history: 07/04Mr. Pearl is a 69 year old M diabetes type 2, high blood pressure and GI bleeding who presented to the ER due to right foot redness and and swelling. Patient is a poor historian. Patient went to see his podiatry yesterday who prescribed Augmentin for him. But the antibiotics does not seem to work. In the ER, he was found to have low hemoglobin 6.8 and a positive guaiac. He has a history of GI bleeding. 3 units of she RBC were ordered. When I saw this patient, he denied headache, dizziness, nausea, vomiting, chest pain, shortness of breath, abdominal pain, hematochezia or any bleeding. 06/30 The patient has a small red bowel movement. Otherwise he denies any new complaints. Blood pressure 153, heart rate 63. The patient is allergic to amlodipine. I will add hydrochlorothiazide 12.5 mg daily. Hemoglobin A1c 7.1 Phos 2.2 Mag 1.5 Phos and mag were given. Repeat mag and Phos in the morning hemoglobin 7.8, it was a 8.4 yesterday. Status post 1 unit of PRBC yesterday. Patient denies regularly drinks alcohol. But patient demonstrated some alcohol withdrawal. CIWA protocol initiated. EGD and colonoscopy were done by Dr. Calloway on 06/30/20 -patient could have colon cancer. 07/01 No new complaints. Temperature 99.2, heart rate 50-70, blood pressure 160/77 -HCTZ was started y esterday WBC 14.1, hemoglobin 8.6, creatinine 1.3 Wound culture showed staph aureus -sensitive to all antibiotics. Dr. Calloway like to start this patient on ertapenem and vancomycin because he is concerned about anaerobic and others. 07/02 Pt is more lethargic and sleepy today. But denies fever/chills. BP is not well controlled BG is well controlled. Afebrile. WBC normalized today. Continue closely monitor 07/03-patient will undergo surgery today. Hemoglobin stable at 8.5. White count 10. MRI brain no evidence of metastatic disease. Await podiatry consult. On antibiotic coverage including ertapenem/vancomycin. Review postop today. Renal function stable. 07/04-patient postop day 1 doing well. White count 24.8. On antibiotic coverage. Continue postop care per surgery. Creatinine uptrending at 1.2. 07/05-responded to nurse call regarding frequent runs of PVCs/V. tach 27 beats. Stat labs ordered for evaluation electrolytes. No chest pain, diaphoresis, unstable hemodynamics. Episode short-lived. On continue telemetry monitoring. Case discussed with surgery and wishes to take over patient's care at this time. Surgery now assuming primary role in hospitalist service will sign off. Constitutional Vitals: Vital Signs Temp Pulse Resp BP Pulse Ox 98.1 F 64 16 161/75 97 07/05/20 07:38 07/05/20 07:38 07/05/20 07:38 07/05/20 07:38 07/05/20 07:38 Period Temp Pulse Resp BP Sys/Gray Pulse Ox Last 24 Hr 98.1 F-99.1 F 60-78 06-24 138-171/62-84 96-100 Intake and Output 07/04/20 07/05/20 07/05/20 21:59 05:59 13:59 Intake Total 700 1026 Output Total 330 775 Balance 370 251 Weight 114.577 kg Runs of V. tach on telemetry Nonlabored breathing No anxiety Intake & Output: Intake & Output 07/04/20 07/05/20 07/05/20 21:59 05:59 13:59 Intake Total 700 1026 Output Total 330 775 Balance 370 251 Weight 114.577 kg Intake: IV 500 926 Sodium Chloride 0.9% 1,000 ml @ 926 75 mls/hr IV .[id number] [facility] Rx#: [id number] Sodium Chloride 0.9% 500 ml @ 500 Wide Open IV [facility] Rx#: [id number] Oral 200 100 Output: Gastric Drainage 50 NG/OG 50 Urine Catheter Amount 280 775 Void Amount 0 Other: Urine Appearance Clear Clear Sediment Uretheral (Smalls) Clear Urine Color Dark Yellow Bright Yellow Uretheral (Smalls) Bright Yellow Urine Odor Normal # Bowel Movements 0 OBJ DATA Labs CBC & Chem 7: 07/05/20 08:05 07/04/20 04:15 Labs: Abnormal Lab Results 07/05/20 07/04/20 07/04/20 08:05 04:15 04:15 WBC 12.4 H 24.8 H RBC 3.32 L 3.48 L Hgb 7.8 L 8.3 L Hct 26.2 L 27.0 L MCV 78.9 L 77.6 L MCH 23.5 L 23.9 L MCHC 29.8 L 30.7 L RDW 17.5 H 17.2 H Plt Count 543 H 569 H Neut % (Auto) 85.5 H 95.0 H Lymph % (Auto) 7.7 L 1.9 L Lymph # (Auto) 0.96 L 0.47 L Absolute Neutrophils 10.59 H 23.54 H PT APTT Sodium 132 L Carbon Dioxide 21 L Glucose 229 H Calcium 8.3 L Total Bilirubin 1.1 H Albumin 2.6 L Globulin 3.8 H Albumin/Globulin Ratio 0.7 L Vancomycin Trough 07/03/20 07/03/20 07/03/20 08:46 08:46 06:38 WBC RBC Hgb Hct MCV MCH MCHC RDW Plt Count Neut % (Auto) Lymph % (Auto) Lymph # (Auto) Absolute Neutrophils PT 14.9 H APTT 40.8 H Sodium Carbon Dioxide Glucose 148 H Calcium Total Bilirubin Albumin 2.6 L Globulin 4.0 H Albumin/Globulin Ratio 0.6 L Vancomycin Trough 07/03/20 07/02/20 06:38 07:56 WBC RBC 3.59 L Hgb 8.5 L Hct 27.7 L MCV 77.2 L MCH 23.7 L MCHC 30.7 L RDW 17.3 H Plt Count 569 H Neut % (Auto) 82.1 H Lymph % (Auto) 9.2 L Lymph # (Auto) 0.92 L Absolute Neutrophils 8.22 H PT APTT Sodium Carbon Dioxide Glucose Calcium Total Bilirubin Albumin Globulin Albumin/Globulin Ratio Vancomycin Trough 20.7 H* Meds: Medications Acetaminophen (Tylenol) 650 mg PO Q6 [facility]; Protocol Last Admin: 07/05/20 05:34 Dose: 650 mg Documented by: Dextrose (Dextrose 50%) 0 ml IV UD PRN PRN Reason: Hypoglycemia Diagnostic Test (Pha) (Accu-Chek) 1 each FS ACHS [facility] Last Admin: 07/05/20 07:56 Dose: 1 each Documented by: Gabapentin (Neurontin) 600 mg PO HS [facility] Last Admin: 07/04/20 20:48 Dose: 600 mg Documented by: Glucose (Insta-Glucose) 15 gm PO PRN PRN PRN Reason: Hypoglycemia Heparin Sodium (Porcine) (Heparin) 5,000 unit SQ Q8 [facility] Last Admin: 07/05/20 05:35 Dose: 5,000 unit Documented by: Hydralazine HCl (Apresoline) 10 mg IV Q4-6HP PRN PRN Reason: Hypertension Last Admin: 07/04/20 23:49 Dose: 10 mg Documented by: Sodium Chloride (Sodium Chloride 0.9%) 1,000 mls @ 75 mls/hr IV .[id number] [facility] Last Admin: 07/05/20 07:53 Dose: Not Given Documented by: Ertapenem 1 gm/ Sodium (Chloride) 50 mls @ 100 mls/hr IV DAILY [facility]; Protocol Last Infusion: 07/04/20 10:30 Dose: Infused Documented by: Vancomycin HCl 1,500 mg/ (Sodium Chloride) 500 mls @ 333.3 mls/hr IV Q24H [facility] Last Infusion: 07/04/20 11:30 Dose: Infused Documented by: Insulin Glargine (Lantus) 14 unit SQ DAILY [facility] Insulin Human Lispro (Humalog) 0 unit SQ ACHS [facility]; Protocol Last Admin: 07/05/20 08:00 Dose: Not Given Documented by: Losartan Potassium (Cozaar) 100 mg PO DAILY [facility] [place] Last Admin: 07/05/20 08:09 Dose: 100 mg Documented by: Methocarbamol (Robaxin) 750 mg PO Q6 [facility] Last Admin: 07/05/20 05:34 Dose: 750 mg Documented by: Morphine Sulfate (Morphine) 2 mg IV Q1HP PRN; Protocol PRN Reason: Per Pain Protocol Last Admin: 07/04/20 07:52 Dose: 2 mg Documented by: Pantoprazole Sodium (Protonix) 40 mg IV BIDAC [facility] Last Admin: 07/05/20 08:07 Dose: 40 mg Documented by: Prochlorperazine (Compazine) 5 mg IV Q6HP PRN PRN Reason: Nausea And Vomiting Sodium Chloride (Saline Flush) 10 ml IV Q8 [facility] Last Admin: 12/31/20 05:36 Dose: 10 ml Documented by: Spironolactone (Aldactone) 25 mg PO QAM [facility] Last Admin: 07/05/20 08:09 Dose: 25 mg Documented by: Vancomycin HCl (Vancomycin Per Pharmacy) 1 order IV [facility] [place]; Protocol A/P Assessment and plan (1) Acute GI hemorrhage: Status: Acute Narrative A/P Narrative: * COLON Mass- postoperative care as per surgery * Runs of V. tach-stable hemodynamics. Electrolyte panel. No evidence of chest pain/diaphoresis unstable hemodynamics. * Leukocytosis down to 12,000 from 24. On antibiotic coverage. Likely secondary to colon mass. Continue monitoring. Afebrile and stable hemodynami cs at this time with no evidence of sepsis * GI bleeding-secondary to colon mass. Status post 3 PRBC transfusion. Hemoglobin 8.4, status post colonoscopy with Dr. Aponte/history of colon cancer 20 years ago with 18 inch partial colectomy. Will undergo hemicolectomy * Mild NIYA-monitor renal function * Anemia of blood loss status post 3 units PRBC, on PPI twice daily * Cellulitis of right foot- Osteomyelitis of first metatarsal head, right , wound culture -MSSA. On ertapenem/vancomycin. Podiatry Dr. Burgos is on board. Really appreciate it. 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 Hospitalist service signing off Time Spent With Patient Time: Total time spent is greater than 50% in coordination of care (as documented) at patient's floor/unit and/or counseling patient: QUALITY VTE Deep Vein Thrombosis/Pulmonary Embolism Present on Admission: No
[2020-07-05] MEDS ORDERED: morphine 2 MG/ML VIAL IV PRN (09:39)
[2020-07-05] MEDS: ERTAPENEM 1 GM in 0.9 % SODIUM CHLORIDE 50 ML IV SCH (09:45)
[2020-07-05] MEDS: INSULIN GLARGINE, HUMAN 1 UNIT/0.01 ML SQ SCH (10:07)
[2020-07-05] MEDS: hydrALAZINE 20 MG/ML VIAL IV PRN ×2 (11:12→23:20)
[2020-07-05] MEDS: CEPHALEXIN 500 MG CAPSULE PO SCH ×3 (12:00→21:14)
[2020-07-05] MEDS ORDERED: MAGNESIUM SULFATE 8.12 MEQ/2 ML VIAL IV ONE (12:45)
--- NOTE | 2020-07-05 13:09 | General Surgery Progress Note ---
SUBJECTIVE Subjective Patient information: Note initiated : 07/05/20 at 1:02 pm Service Date, if different from initiated Date: [] Patient: Joesph Kang 69 y/o M admitted on 06/29/20 for Foot ulcer. Chief Complaint: colon cancer Events: 27 beat run of V tack, asymptomatic S: feeling quite improved, minimal pain, no flatus, no BM, tolerating sips of liquids, yet to mobilize O: VSS UOP good NAD resting breathing easily on RA RRR Abd soft, minimally tender nondistended, wound cdi periphery warm R foot wound with no further erythema , some fibrinous exudate A/P 69 yo man POD2 after R hemicolectomy, peritoneal biospies, and hepatic biopsy with vicryl mesh ventral hernia repair. Admitted for diabetic R foot infection, found to have a GIB with colonoscopy revealing a large R colon mass c/w colon cancer. Questionable R liver mets on CT demonstrated to be cyts, solid leasion biosied in segment 4b. may have local peritoneal spread Plan: Post op care Diabetic clear liquid diet mack out mobilize with PT and OT, heel touch on R foot Dressings removed, OK to shower Glucose management - ISS + glargine 14units Qam, glucose at goal Diabetic foot infection s/p debridement to R 1st MTP joint capsule Cultures MSSA Keflex PO 5 additional days planned WTD BID No further betadine Forefoot off weighting shoe ordered to facilite ambulation Nonsustained V tack - mag repleted, K OK - starting low dose BB - Continue tele FEN LR 75, mag 4g, clear liquid diet Proph Enoxaparin 30 BID with cancer and obesity Dani Calloway MD fluid bolus multimodal pain control OK to remove NGT ongoing vanco and ertapenum for diabtic foot infection - f/u cultures Dani Calloway MD Surgery Constitutional Vitals: Vital Signs Temp Pulse Resp BP Pulse Ox 37.1 C 63 18 179/69 96 07/05/20 12:27 07/05/20 12:27 07/05/20 12:27 07/05/20 12:27 07/05/20 12:27 Period Temp Pulse Resp BP Sys/Gray Pulse Ox Last 24 Hr 36.7 C-37.3 C 60-78 12- 138-179/62-84 96-100 Intake and Output 07/04/20 07/05/20 07/05/20 21:59 05:59 13:59 Intake Total 700 1026 1000 Output Total 330 775 Balance 670 176 7842 Weight 114.577 kg Intake & Output: Intake & Output 07/04/20 07/05/20 07/05/20 21:59 05:59 13:59 Intake Total 700 1026 1000 Output Total 330 775 Balance 572 830 8428 Weight 114.577 kg Intake: IV 376 191 6596 Sodium Chloride 0.9% 1,000 ml @ 926 1000 75 mls/hr IV .[id number] [facility] Rx#: [id number] Sodium Chloride 0.9% 500 ml @ 500 Wide Open IV [facility] Rx#: [id number] Oral 200 100 Output: Gastric Drainage 50 NG/OG 50 Urine Catheter Amount 280 775 Void Amount 0 Other: Urine Appearance Clear Clear Clear Sediment Sediment Uretheral (Mack) Clear Clear Urine Color Dark Yellow Bright Yellow Bright Yellow Uretheral (Amck) Bright Yellow Bright Yellow Urine Odor Normal Normal # Bowel Movements 0 A/P Time Spent With Patient Time: Total time spent is greater than 50% in coordination of care (as documented) at patient's floor/unit and/or counseling patient:
[2020-07-05] MEDS ORDERED: MAGNESIUM SULFATE 4 GM/100 ML BAG IV ONE (13:15)
--- NOTE | 2020-07-05 15:27 | Operative Note ---
DATE OF OPERATION: 07/03/2020 PREOPERATIVE DIAGNOSES: 1. Right colon cancer. 2. Large Mexican cheese ventral hernia defect. POSTOPERATIVE DIAGNOSES: 1. Large right colon cancer. 2. Large ventral hernia defect measuring 20 x 13 cm. 3. Hepatic nodule in segment 4B. 4. Serosal and peritoneal implants within the right upper quadrant. PROCEDURE: 1. Exploratory laparotomy. 2. Right hemicolectomy with stapled [id number] functional end-to-end ileocolic anastomosis. 3. Biopsy of hepatic nodule. 4. Biopsy of peritoneal implants. 5. Ventral hernia repair of 20 x 13 cm hernia defect with Vicryl mesh underlay. SURGEON: Dani Calloway MD JEWELRY JOBBER: None. INDICATIONS: This is a 69-year-old man with a history of diabetes as well as a history of a prior left-sided colon cancer, status post resection over a decade ago, who presented to the Emergency Department with feeling unwell with a diabetic foot infection. He was incidentally found to have a low hemoglobin of approximately 6 and melanotic stool. He had had a previous episode of a GI bleed this fall, which had been worked up with a pill endoscopy study as well as EGD without significant cause identified. He did not have a colonoscopy at that time. The patient was worked up during the hospitalization with EGD and colonoscopy, which identified a large bleeding fungating mass at 90 cm. Follow-up CT imaging demonstrated that this was in the right colon. He had a CT chest which was without concern for malignancy. He had multiple liver lesions on CT abdomen, which were notable for possible cysts, but nevertheless he had a follow-up MRI, in which these lesions were not concerning for metastatic disease. He had a significantly elevated CEA. 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 He was taken to the operating room in a timely fashion given his ongoing, but slow bleed. He also had questionable intussusception on MRI to evaluate his liver lesions. FINDINGS: 1. Large Mexican cheese ventral defect as described above. 2. Large tumor in the right colon was easily identified by palpation as well as its tattoo. There was a 10+ cm distal margin obtained. 3. There were multiple small mucin-like appearing implants in the right upper quadrant in proximity to the primary lesion. This was concerning for local intraperitoneal spread. Multiple professional healthcare representative samples were biopsied and sent to pathology. 4. There was a small hard nodule in segment 4B of the liver, which was wedged out and sent to pathology. 5. Vicryl mesh was used to close the hernia defect and lower risk of evisceration. Primary fascial closure was not obtained. DESCRIPTION OF PROCEDURE: The patient was brought to the operating room, he was intubated without incident. He was prepped and draped in the usual sterile fashion. A timeout was completed. An upper midline incision from just below the level of the umbilicus to within several centimeters of the xiphoid process was made following the scar of the patient's previous laparotomy incision. Of note, the patient had a paramedian incision as well on the right side. This was followed. We carried this through the skin and subcutaneous tissue until the hernia sac just superior to the umbilicus was encountered. The hernia sac was opened. I carefully dissected out the intestinal contents from it, reducing them. The incision was then carefully widely opened. Of note, during the course of this, there was a Mexican cheese ventral hernia defect identified with three significant pieces of bridging fascia. These were tagged on either side with silk suture to facilitate identification and reapproximation upon closure. One of these bridges constituted approximately 4 cm wide band of mesh from the patient's previous failed mesh repair. Of note, below the level of the umbilicus, there was attenuated midline fascia, but it was present and this was minimally divided. Inspecting into the abdomen, there was no malignant ascites and no peritoneal implants generally identified. A significant lysis of adhesions progressed, lysing multiple adhesions between the anterior abdominal wall and the underlying viscera to facilitate mobilization. The mass was readily palpable and identified with significant kinking of the serosal surfaces from the recent colonoscopy. I then proceeded to evaluate the liver. To facilitate this, a Bookwalter retractor was placed. There were multiple hepatic cysts which appeared to be relatively simple consistent with the MRI findings; however, there was a hard nodule identified in segment 4B. Using a scalpel, this was wedged out and sent to pathology. There was an expected amount of bleeding from the hepatic parenchyma, which was controlled with Bovie cautery at a high setting. There was some residual bleeding; however, and so this area of the liver was packed. The packs after the colectomy were removed with excellent hemostasis. I then proceeded to identify the terminal ileum, which required significant lysis of overlying bowel adhesions. The right colon and the transverse colon were reasonably mobile. The mass was identified and not invading retroperitoneal structures. However, inspecting, the mass appeared to be in the mid right colon. Upon inspecting the adjacent peritoneum to the mass, there were multiple mucoid/globular implants. These were potentially concerning for localized peritoneal spread. A professional healthcare representative sample of these was separately biopsied and sent to pathology. Next, we began to mobilize the right colon. The white line of Toldt was identified and incised. The hepatic flexure was similarly incised. The greater omentum was reflected off of a portion of the proximal transverse colon working our way along the embryologic plane between the retroperitoneum and the mesentery of the colon was relatively straightforward. We did this primarily with Bovie cautery over a right angle forceps. During the course of this, I attempted to identify the right ureter, dissecting bluntly into the retroperitoneal fat planes, which were quite copious and friable. In the course of this, I easily identified the right gonadal vessels. These were quite deep in the previously undisturbed retroperitoneal fat. Despite some time looking, I could not identify the right ureter. However, given the abundance of fat in the area at the depths of my dissection plane quite superficial to the identified gonadal vessels and the anatomic certainty that the ureter tracks deep to these vessels, I felt comfortable that my dissection plane was well away from the ureter. At this point, the right colon was further mobilized until we had identified the takeoff of the ileocolic vessel from the superior mesenteric artery. The right branch of the middle colic vessel was identified as well. I next divided the colon just distal to the right branch of the left middle colic vessel and divided the terminal ileum as well, taking approximately 5 cm of terminal ileum. At this point, the mesentery was divided using sequential clamp and tie with 2-0 Vicryl silk. The ileocolic vessel was high ligated to take the majority of its associated lymph nodes and ligation was with 0 silk. In addition, a secondary stick tie was placed as well. The specimen was removed off of the field without incident. Next, the dissection area was irrigated and suctioned dry. Hemostasis was confirmed. Lap pads were removed at the site of the hepatic biopsy and hemostasis was confirmed to be normal. Next, we proceeded to perform the stapled [id number] functional end-to-end ileocolic anastomosis. The terminal ileum was quite mobile and easily brought up to the transverse colon. Before doing this, I ran the entirety of the small bowel. No additional mesenteric implants were identified and I confirmed that there was no torsion of the small bowel before creating the anastomosis. The area was toweled off. The antimesenteric corners of both the terminal ileum as well as the colon were removed. A limb of a blue load 75 mm EMMANUELLE stapler was placed into each lumen of the bowel. The stapler was brought together, held in place for 1 minute and then fired. The staple line internally was inspected and found to be hemostatic. The common enterotomy site was then lined up with offsetting the staple lines using Allis clamps and then the common enterotomy was closed with an additional firing of an identical stapler. A silk crotch stitch was placed. The anastomosis was palpated at the completion of this and found to be widely patent. The anastomosis was then covered with greater omentum. Next, I inspected again for hemostasis, which was confirmed. I then proceeded to close the ventral hernia defect. I was concerned if I simply sewed together the hernia sac, the patient was at increased risk of evisceration. Thus, I produced a clock face Vicryl mesh underlay to facilitate fascial and hernia sac closure, I did not attempt to establish primary fascial closure at this juncture, given the patient's planned chemotherapy and the fact that this was not a clean case. Some adherent abdominal viscera and greater omentum were dissected free from the anterior abdominal wall on the left side. The hernia defect was measured as above. At this point, I closed the attenuated, but present fascia inferiorly using a running Maxon suture and backing this up with internal retention sutures of 0 Vicryl. Once I reached the first hernia sac at the umbilicus I excised it. I excised the hernia sacs as well more superiorly. I then sewed in a clock face fashion a large piece of double layer Vicryl mesh in an underlay position using 0 Vicryl transfascial interrupted sutures. In this way, the abdominal viscera were excluded from the hernia sac. I then closed the three areas of fascial bridging using PDS sutures and closed the single site of bridging mesh from his previous failed repair using Prolene suture. A running continuous suture pulling together fascia as well as hernia sac was also used and this was of 0 Vicryl. Next, the subcutaneous tissues were copiously irrigated. Local anesthetic was infiltrated into the wound and the skin was closed using a layer of deep dermal interrupted 2-0 Vicryl sutures and a running subcuticular monofilament absorbable suture. Dressings were applied. The patient was extubated and brought to PACU without incident. ESTIMATED BLOOD LOSS: 50 mL. COMPLICATIONS: None. IMPLANTS: Vicryl mesh, double layer. SPECIMENS: 1. Right colon. 2. Segment 4B liver nodule. 3. Peritoneal implants. [email or web address] Job ID: [id number] Doc ID: [id number] Dani MORENO
[2020-07-05] MEDS: METOPROLOL TARTRATE 25 MG TABLET PO SCH ×2 (17:12→21:13)
[2020-07-05] MEDS: GABAPENTIN 300 MG CAPSULE PO SCH (21:13)
[2020-07-05] MEDS: ENOXAPARIN 30 MG/0.3 ML SYRINGE SQ SCH (21:13)
[2020-07-06] MEDS: hydrALAZINE 20 MG/ML VIAL IV PRN ×2 (04:10→19:52)
[2020-07-06] MEDS: METHOCARBAMOL 750 MG TABLET PO SCH (05:21)
[2020-07-06] MEDS: ACETAMINOPHEN 325 MG TABLET PO SCH ×4 (05:21→23:43)
[2020-07-06] MEDS: 0.9 % SODIUM CHLORIDE 10 ML SYRINGE IV SCH ×4 (05:22→22:33)
[2020-07-06] MEDS: 0.9 % SODIUM CHLORIDE 1,000 ML IV SCH ×4 (05:25→22:14)
[2020-07-06 06:57] LABS: Basophils # (Auto) 0.03 K/mcL (0.00-0.20); Basophils % (Auto) 0.3 % (0.0-2.0); Eosinophils # (Auto) 0.12 K/mcL (0.00-0.70); Eosinophils % (Auto) 1.3 % (0.0-7.0); Hematocrit 27.5 % (41.0-55.0); Hemoglobin 8.4 g/dL (13.5-16.5); Lymphocytes # (Auto) 0.95 K/mcL (1.50-4.80); Lymphocytes % (Auto) 10.1 % (15.0-49.0); Mean Cell Volume 78.1 fL (80.0-100.0); Mean Corpuscular HGB Conc 30.5 g/dL (31.0-36.0); Mean Platelet Volume 8.4 fL (7.4-10.4); Monocytes # (Auto) 0.53 K/mcL (0.10-0.90); Monocytes % (Auto) 5.6 % (1.0-12.0); Neutrophils % (Auto) 82.7 % (38.0-78.0); Platelet Count 570 K/mcL (140-440); RBC 3.52 M/mcL (4.50-5.90); Red Cell Distribution Width 17.7 % (11.5-14.5); WBC 9.4 K/mcL (4.5-11.0)
[2020-07-06] MEDS: INSULIN LISPRO 1 UNIT/0.01 ML UNIT SQ SCH ×4 (07:34→22:00)
[2020-07-06 07:40] LABS: Blood Urea Nitrogen 15 mg/dL (8-23); Calcium 8.2 mg/dL (8.6-10.4); Carbon Dioxide 22 mmol/L (22-30); Chloride 105 mmol/L (96-108); Glomerular Filtration Rate 76; Glucose 94 mg/dL (70-105)
[2020-07-06] MEDS: CEPHALEXIN 500 MG CAPSULE PO SCH ×4 (08:02→22:11)
[2020-07-06] MEDS: LOSARTAN 50 MG TABLET PO SCH (08:02)
[2020-07-06] MEDS: SPIRONOLACTONE 25 MG TABLET PO SCH (08:03)
[2020-07-06] MEDS: METOPROLOL TARTRATE 25 MG TABLET PO SCH ×2 (08:03→22:11)
[2020-07-06] MEDS: PANTOPRAZOLE 40 MG VIAL IV SCH ×2 (08:05→17:23)
[2020-07-06] MEDS: INSULIN GLARGINE, HUMAN 1 UNIT/0.01 ML SQ SCH (08:06)
[2020-07-06] MEDS: ENOXAPARIN 30 MG/0.3 ML SYRINGE SQ SCH ×2 (08:09→22:11)
[2020-07-06] MEDS ORDERED: oxyCODONE HCL 5 MG TABLET PO PRN ×2 (11:56)
[2020-07-06] MEDS ORDERED: POTASSIUM CHLORIDE 20 MEQ TABLET PO ONE (11:58)
--- NOTE | 2020-07-06 12:05 | General Surgery Progress Note ---
SUBJECTIVE Subjective Patient information: Note initiated : 07/06/20 at 12:01 pm Service Date, if different from initiated Date: [] Patient: Joesph Kang 69 y/o M admitted on 06/29/20 for Foot ulcer. Events: none S: continues to feel well with moderate to minimal pain, + flatus, + bm this morning. Severe mobility imparement with full two person assist O: VSS UOP good NAD resting breathing easily on RA RRR Abd soft, minimally tender nondistended, wound cdi periphery warm R foot wound with no further erythema , some fibrinous exudate removed. A/P 69 yo man POD3 after R hemicolectomy, peritoneal biospies, and hepatic biopsy with vicryl mesh ventral hernia repair. Admitted for diabetic R foot infection, found to have a GIB with colonoscopy revealing a large R colon mass c/w colon cancer. Questionable R liver mets on CT demonstrated to be cyts, solid leasion biosied in segment 4b. may have local peritoneal spread Plan: Post op care Diabetic diet now with bowel function mobilize with PT and OT, must wear forefoot offloading shoe OK to shower Glucose management - ISS + glargine 14units Qam, glucose at goal Diabetic foot infection s/p debridement to R 1st MTP joint capsule Cultures MSSA Keflex stop Date 07/10/20 WTD BID Forefoot off weighting shoe with ambulation Nonsustained V tack two days ago - mag repleted, K OK - starting low dose BB - Continue tele FEN LR 25, K repleated, diabetic diet Proph Enoxaparin 30 BID with cancer and obesity Dani Calloway MD Constitutional Vitals: Vital Signs Temp Pulse Resp BP Pulse Ox 37.0 C 82 18 154/65 96 07/06/20 08:00 07/06/20 08:00 07/06/20 08:00 07/06/20 08:00 07/06/20 08:00 Period Temp Pulse Resp BP Sys/Gray Pulse Ox Last 24 Hr 36.6 C-37.1 C 53-82 16-20 154-179/65-73 95-99 Intake and Output 07/05/20 07/06/20 07/06/20 21:59 05:59 13:59 Intake Total 340 640 Output Total 1350 651 300 Balance -1350 -311 340 Weight 115.439 kg Intake & Output: Intake & Output 07/05/20 07/06/20 07/06/20 21:59 05:59 13:59 Intake Total 340 640 Output Total 1350 651 300 Balance -1350 -311 340 Weight 115.439 kg Intake: IV 100 Oral 240 640 Output: Urine Catheter Amount 1350 Uretheral (Smalls) 200 Void Amount 650 300 # of times incontinent of urine 1 Other: Meal Breakfast Percent of Meal Consumed 100% Feeding Ability Independent Urine Appearance Clear Clear Clear Urine Color Bright Yellow Straw Pale Urine Odor Normal Normal A/P Time Spent With Patient Time: Total time spent is greater than 50% in coordination of care (as documented) at patient's floor/unit and/or counseling patient:
[2020-07-06] MEDS: METHOCARBAMOL 500 MG TABLET PO SCH ×3 (12:12→23:45)
[2020-07-06] MEDS: GABAPENTIN 300 MG CAPSULE PO SCH (22:11)
[2020-07-07] MEDS: hydrALAZINE 20 MG/ML VIAL IV PRN ×2 (02:09→23:38)
[2020-07-07] MEDS: ACETAMINOPHEN 325 MG TABLET PO SCH ×4 (06:01→23:38)
[2020-07-07] MEDS: METHOCARBAMOL 500 MG TABLET PO SCH ×4 (06:02→23:38)
[2020-07-07] MEDS: 0.9 % SODIUM CHLORIDE 10 ML SYRINGE IV SCH ×3 (06:03→20:55)
[2020-07-07 07:20] LABS: Blood Urea Nitrogen 14 mg/dL (8-23); Calcium 8.4 mg/dL (8.6-10.4); Carbon Dioxide 22 mmol/L (22-30); Chloride 103 mmol/L (96-108); Glomerular Filtration Rate 86; Glucose 104 mg/dL (70-105)
[2020-07-07] MEDS: INSULIN LISPRO 1 UNIT/0.01 ML UNIT SQ SCH ×4 (07:40→20:49)
[2020-07-07] MEDS: ENOXAPARIN 30 MG/0.3 ML SYRINGE SQ SCH ×2 (07:51→20:54)
[2020-07-07] MEDS: INSULIN GLARGINE, HUMAN 1 UNIT/0.01 ML SQ SCH (07:55)
[2020-07-07] MEDS: PANTOPRAZOLE 40 MG VIAL IV SCH ×2 (07:55→17:26)
[2020-07-07] MEDS: LOSARTAN 50 MG TABLET PO SCH (07:56)
[2020-07-07] MEDS: CEPHALEXIN 500 MG CAPSULE PO SCH ×4 (07:57→20:54)
[2020-07-07] MEDS: METOPROLOL TARTRATE 25 MG TABLET PO SCH (07:57)
[2020-07-07] MEDS: SPIRONOLACTONE 25 MG TABLET PO SCH (07:57)
--- NOTE | 2020-07-07 10:28 | General Surgery Progress Note ---
SUBJECTIVE Subjective Patient information: Note initiated : 07/07/20 at 10:24 am Service Date, if different from initiated Date: [] Patient: Joesph Kang 69 y/o M admitted on 06/29/20 for Foot ulcer. Chief Complaint: post op Events: none S: feeling better and better, + flatus, + bms, tolerating a general diabetic diet. Pain well controlled on oral meds. Voiding without issue O: Hypertensive UOP good breathing easily on RA RRR Abd soft, minimally tender nondistended, wound cdi periphery warm A/P 69 yo man POD4 after R hemicolectomy, peritoneal biospies, and hepatic biopsy with vicryl mesh ventral hernia repair. Admitted for diabetic R foot infection, found to have a GIB with colonoscopy revealing a large R colon mass c/w colon cancer. Questionable R liver mets on CT demonstrated to be cyts, solid leasion biosied in segment 4b. may have local peritoneal spread Now medically ready for discharge however full two person assist to mobilize - will need SNF, Skilled need is PT Plan: Post op care Diabetic diet now with bowel function mobilize with PT and OT, must wear forefoot offloading shoe OK to shower Glucose management - ISS + glargine 12units Qam, glucose at goal Diabetic foot infection s/p debridement to R 1st MTP joint capsule Cultures MSSA Keflex stop Date 07/10/20 WTD BID Forefoot off weighting shoe with ambulation Nonsustained V tack three days ago - on BB - Continue tele HTN to 189 SBP yesteday - Adding carvedolol, stopping metronidazole - on hm losartan and spironolactone FEN LR 25, E OK, diabetic diet Proph Enoxaparin 30 BID with cancer and obesity Dani Calloway MD Constitutional Vitals: Vital Signs Temp Pulse Resp BP Pulse Ox 37.6 C H 65 18 142/70 95 07/07/20 08:00 07/07/20 08:00 07/07/20 08:00 07/07/20 10:07 07/07/20 08:00 Period Temp Pulse Resp BP Sys/Gray Pulse Ox Last 24 Hr 36.4 C-37.6 C 52-75 17-20 142-189/68-79 95-97 Intake and Output 07/06/20 07/07/20 07/07/20 21:59 05:59 13:59 Intake Total 400 240 Output Total 600 975 250 Balance -600 -575 -10 Weight 108.494 kg Intake & Output: Intake & Output 07/06/20 07/07/20 07/07/20 21:59 05:59 13:59 Intake Total 400 240 Output Total 600 975 250 Balance -600 -575 -10 Weight 108.494 kg Intake: Oral 400 240 Output: Void Amount 600 975 250 Other: Meal Breakfast Percent of Meal Consumed 100% Feeding Ability Independent Urine Appearance Clear Clear Clear Urine Color Straw Bright Yellow Pale Urine Odor Normal Normal Stool Size Moderate Stool Color Brown Stool Consistency Formed A/P Time Spent With Patient Time: Total time spent is greater than 50% in coordination of care (as documented) at patient's floor/unit and/or counseling patient:
[2020-07-07] MEDS: 0.9 % SODIUM CHLORIDE 1,000 ML IV SCH (11:12)
[2020-07-07] MEDS: CARVEDILOL 6.25 MG TABLET PO SCH (17:26)
[2020-07-07] MEDS: GABAPENTIN 300 MG CAPSULE PO SCH (20:54)
[2020-07-08] MEDS: METHOCARBAMOL 500 MG TABLET PO SCH ×2 (05:48→11:48)
[2020-07-08] MEDS: ACETAMINOPHEN 325 MG TABLET PO SCH ×4 (05:48→23:57)
[2020-07-08] MEDS: 0.9 % SODIUM CHLORIDE 10 ML SYRINGE IV SCH ×3 (05:50→20:36)
[2020-07-08 07:39] LABS: Blood Urea Nitrogen 15 mg/dL (8-23); Calcium 8.3 mg/dL (8.6-10.4); Carbon Dioxide 23 mmol/L (22-30); Chloride 102 mmol/L (96-108); Glomerular Filtration Rate 76; Glucose 127 mg/dL (70-105)
[2020-07-08] MEDS: INSULIN LISPRO 1 UNIT/0.01 ML UNIT SQ SCH ×4 (07:52→20:35)
[2020-07-08] MEDS ORDERED: INSULIN GLARGINE, HUMAN 1 UNIT/0.01 ML SQ SCH (09:00)
[2020-07-08] MEDS: CARVEDILOL 6.25 MG TABLET PO SCH ×2 (09:06→16:31)
[2020-07-08] MEDS: CEPHALEXIN 500 MG CAPSULE PO SCH ×4 (09:06→20:35)
[2020-07-08] MEDS: LOSARTAN 50 MG TABLET PO SCH (09:06)
[2020-07-08] MEDS: SPIRONOLACTONE 25 MG TABLET PO SCH (09:06)
[2020-07-08] MEDS: PANTOPRAZOLE 40 MG VIAL IV SCH ×2 (09:08→16:30)
[2020-07-08] MEDS: ENOXAPARIN 30 MG/0.3 ML SYRINGE SQ SCH ×2 (09:09→20:36)
[2020-07-08] MEDS: 0.9 % SODIUM CHLORIDE 1,000 ML IV SCH (11:49)
[2020-07-08] MEDS ORDERED: INSULIN GLARGINE, HUMAN 1 UNIT/0.01 ML SQ ONE (12:23)
[2020-07-08] MEDS ORDERED: MAGNESIUM SULFATE 8.12 MEQ/2 ML VIAL IV ONE (12:24)
[2020-07-08] MEDS ORDERED: MAGNESIUM SULFATE 4 GM/100 ML BAG IV ONE (12:30)
--- NOTE | 2020-07-08 12:55 | General Surgery Progress Note ---
SUBJECTIVE Subjective Patient information: Note initiated : 07/08/20 at 12:52 pm Service Date, if different from initiated Date: [] Patient: Joesph Kang 69 y/o M admitted on 06/29/20 for Foot ulcer Chief Complaint: post op Events: none S: feeling quite well, mobility improving. having good bowel funciton, tolerating a diabetic diet. O: VSS UOP good breathing easily on RA RRR Abd soft, minimally tender nondistended, wound cdi periphery warm R foot wound without erythema or induration early granulation tissue A/P 69 yo man POD5 after R hemicolectomy, peritoneal biospies, and hepatic biopsy with vicryl mesh ventral hernia repair. Admitted for diabetic R foot infection, found to have a GIB with colonoscopy revealing a large R colon mass c/w colon cancer. Questionable R liver mets on CT demonstrated to be cyts, solid leasion biosied in segment 4b. may have local peritoneal spread Now medically ready for discharge however ongoing difficulty mobilizing - will need SNF, Skilled need is PT Plan: Post op care Diabetic diet now with bowel function mobilize with PT and OT, must wear forefoot offloading shoe OK to shower Glucose management - ISS + glargine 16units Qam, glucose at goal Diabetic foot infection s/p debridement to R 1st MTP joint capsule Cultures MSSA Keflex stop Date 07/10/20 WTD BID - Would benift from wound vac starting thursday Forefoot off weighting shoe with ambulation HTN - Added carvedolol - on hm losartan and spironolactone FEN Stop IVF, Replete Mg, diabetic diet Proph Enoxaparin 30 BID with cancer and obesity - will need a total of 30days of extended DVT prop given high risk Awaiting surgical pathology Dani Calloway MD Constitutional Vitals: Vital Signs Temp Pulse Resp BP Pulse Ox 37.1 C 69 18 161/75 97 07/08/20 11:52 07/08/20 11:52 07/08/20 11:52 07/08/20 11:52 07/08/20 11:52 Period Temp Pulse Resp BP Sys/Gray Pulse Ox Last 24 Hr 36.7 C-37.3 C 52-69 16-18 161-181/64-75 96-97 Intake and Output 07/07/20 07/08/20 07/08/20 21:59 05:59 13:59 Intake Total 600 650 360 Output Total 1075 951 600 Balance -475 -301 -240 Weight 114.623 kg Intake & Output: Intake & Output 07/07/20 07/08/20 07/08/20 21:59 05:59 13:59 Intake Total 600 650 360 Output Total 1075 951 600 Balance -475 -301 -240 Weight 114.623 kg Intake: Oral 600 650 360 Output: Void Amount 1075 356 600 # of times incontinent of urine 1 Other: Meal tuna sandwich Breakfast Percent of Meal Consumed 100% 100% Feeding Ability Independent Independent Urine Appearance Clear Clear Clear Urine Color Bright Yellow Bright Yellow Bright Yellow Urine Odor Normal Normal Normal A/P Time Spent With Patient Time: Total time spent is greater than 50% in coordination of care (as documented) at patient's floor/unit and/or counseling patient:
[2020-07-08] MEDS: GABAPENTIN 300 MG CAPSULE PO SCH (20:35)
[2020-07-09] MEDS: hydrALAZINE 20 MG/ML VIAL IV PRN (03:13)
[2020-07-09] MEDS: 0.9 % SODIUM CHLORIDE 10 ML SYRINGE IV SCH ×3 (03:14→12:54)
[2020-07-09] MEDS: ACETAMINOPHEN 325 MG TABLET PO SCH ×2 (04:52→12:11)
[2020-07-09] MEDS: INSULIN LISPRO 1 UNIT/0.01 ML UNIT SQ SCH ×2 (07:10→12:12)
[2020-07-09] MEDS: ENOXAPARIN 30 MG/0.3 ML SYRINGE SQ SCH (08:23)
[2020-07-09] MEDS: PANTOPRAZOLE 40 MG VIAL IV SCH (08:23)
[2020-07-09] MEDS: LOSARTAN 50 MG TABLET PO SCH (08:26)
[2020-07-09] MEDS: CEPHALEXIN 500 MG CAPSULE PO SCH ×2 (08:26→12:11)
[2020-07-09] MEDS: CARVEDILOL 6.25 MG TABLET PO SCH (08:26)
[2020-07-09] MEDS: SPIRONOLACTONE 25 MG TABLET PO SCH (08:26)
[2020-07-09] MEDS ORDERED: INSULIN GLARGINE, HUMAN 1 UNIT/0.01 ML SQ SCH (09:00)
--- NOTE | 2020-07-09 12:09 | Discharge Summary ---
Discharge Provider Provider Patient information: Note initiated : 07/09/20 at 12:07 pm Service Date, if different from initiated Date: [] Patient: Joesph Kang 69 y/o M admitted on 06/29/20 for Foot ulcer. Chief Complaint: [] Date of admission: 06/29/20 03:00 Discharge date: 07/09/20 Primary care physician: Orlando Greenberg MD Consults: 06/29/20 08:33 Consult to Physician [CONS] Routine Comment: Consulting Provider: Bonilla Burgos Reason For Exam: Physician to Consult 07/06/20 21:51 Consult to Physician [CONS] Routine Comment: Consulting Provider: Dani Calloway Reason For Exam: Physician to Consult Discharge Meds Discharge Medications Home Medications spironolactone 25 mg tablet 25 mg PO QAM #30 tab 09/13/19 [Rx Confirmed 06/29/20 Last Taken Unknown] losartan 100 mg tablet See Rx Instructions .ROUTE .COMPLEX #90 tab 03/22/20 [Rx Confirmed 06/29/20 Last Taken Unknown] Tresiba FlexTouch U-100 22 unit SUB-Q QHS 06/29/20 [History Confirmed 06/29/20 Last Taken 06/28/20 17:00] carvedilol 6.25 mg PO BIDCC #60 tab 07/09/20 [Rx Last Taken Unknown] cephalexin 500 mg PO QID #5 cap 07/09/20 [Rx Last Taken Unknown] enoxaparin [Lovenox] 30 mg SQ BID #50 ml 07/09/20 [Rx Last Taken Unknown] COURSE Hospital Course Hospital course: Interval history: 07/04MrYadira Kang is a 69 year old M diabetes type 2, high blood pressure and GI bleeding who presented to the ER due to right foot redness and and swelling. Patient is a poor historian. Patient went to see his podiatry yesterday who prescribed Augmentin for him. But the antibiotics does not seem to work. In the ER, he was found to have low hemoglobin 6.8 and a positive guaiac. He has a history of GI bleeding. 3 units of she RBC were ordered. When I saw this patient, he denied headache, dizziness, nausea, vomiting, chest pain, shortness of breath, abdominal pain, hematochezia or any bleeding. 06/30 The patient has a small red bowel movement. Otherwise he denies any new complaints. Blood pressure 153, heart rate 63. The patient is allergic to amlodipine. I will add hydrochlorothiazide 12.5 mg daily. Hemoglobin A1c 7.1 Phos 2.2 Mag 1.5 Phos and mag were given. Repeat mag and Phos in the morning hemoglobin 7.8, it was a 8.4 yesterday. Status post 1 unit of PRBC yesterday. Patient denies regularly drinks alcohol. But patient demonstrated some alcohol withdrawal. CIWA protocol initiated. EGD and colonoscopy were done by Dr. Calloway on 06/30/20 -patient could have colon cancer. 07/01 No new complaints. Temperature 99.2, heart rate 50-70, blood pressure 160/77 -HCTZ was started yesterday WBC 14.1, hemoglobin 8.6, creatinine 1.3 Wound culture showed staph aureus -sensitive to all antibiotics. Dr. Calloway like to start this patient on ertapenem and vancomycin because he is concerned about anaerobic and others. 07/02 Pt is more lethargic and sleepy today. But denies fever/chills. BP is not well controlled BG is well controlled. Afebrile. WBC normalized today. Continue closely monitor 07/03-patient will undergo surgery today. Hemoglobin stable at 8.5. White count 10. MRI brain no evidence of metastatic disease. Await podiatry consult. On antibiotic coverage including ertapenem/vancomycin. Review postop today. Renal function stable. 07/04-patient postop day 1 doing well. White count 24.8. On antibiotic cover age. Continue postop care per surgery. Creatinine uptrending at 1.2. 07/05-responded to nurse call regarding frequent runs of PVCs/V. tach 27 beats. Stat labs ordered for evaluation electrolytes. No chest pain, diaphoresis, unstable hemodynamics. Episode short-lived. On continue telemetry monitoring. Case discussed with surgery and wishes to take over patient's care at this time. Surgery now assuming primary role in hospitalist service will sign off. management taken over by Surgery 1/3 from surg note: Events: none S: feeling quite well, mobility improving. having good bowel funciton, tolerating a diabetic diet. O: VSS UOP good breathing easily on RA RRR Abd soft, minimally tender nondistended, wound cdi periphery warm R foot wound without erythema or induration early granulation tissue d/c on 07/09 Discharge diagnosis: GI bleed and colonic mass with colon cancer diabetic right foot infection Time Spent with Patient Time attestation: Total time spent providing and/or coordinating discharge services: Time spent: Greater than 30 minutes EXAM Constitutional Vitals: Temp Pulse Resp BP Pulse Ox 97.8 F 61 20 149/68 97 07/09/20 11:38 07/09/20 11:38 07/09/20 11:38 07/09/20 11:38 07/09/20 11:38 Discharge Plan Patient/Caregiver Discharge Instructions Activity: increase activity as tolerated Diet: Consistent Carbohydrate Prescriptions: New carvedilol 6.25 mg Tablet 6.25 mg PO BIDCC Qty: 60 RF: 0 cephalexin 500 mg Capsule 500 mg PO QID Qty: 5 RF: 0 enoxaparin [Lovenox] 30 mg/0.3 mL Syringe 30 mg SQ BID Qty: 50 RF: 0 Continued spironolactone 25 mg tablet 25 mg PO QAM Qty: 30 RF: 11 losartan 100 mg tablet See Rx Instructions .ROUTE .COMPLEX Qty: 90 RF: 1 Tresiba FlexTouch U-100 100 unit/mL (3 mL) insulin pen 22 unit SUB-Q QHS RF: 0 Follow Up Plan Follow up with: Orlando Greenberg MD [Primary Care Provider] - Bonilla Burgos DPM [Physician] - Enid De Dios MD [Physician] - Patient Disposition: Xfer SNF Prognosis: Serious Rehab Potential: Critical I certify that the patient requires SNF services: Yes Overall status at discharge: patient is progressing back to baseline QUALITY VTE Deep Vein Thrombosis/Pulmonary Embolism Present on Admission: No
--- NOTE | 2020-07-09 15:35 | Surgical Pathology Report ---
Histology Microscopic Diagnosis Specimen A- LIVER, SEGMENT 4B LESION, BIOPSY: -- BENIGN LIVER PARENCHYMA. -- NO MALIGNANCY IDENTIFIED. Procedural Impression Colon mass. Gross Description Received in formalin designated hepatic segment 4B lesion mass, is a clark piece of tissue. It is 0.7 x 0.5 x 0.2 cm. Extending from the surface at one end is a 0.3 x 0.3 cm raised nodule. The margin is inked black. Sectioned, totally submitted in two cassettes with the ends in A1 and the remainder in A2. 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 Gross Description Received in formalin designated as peritoneal implant, are three pieces of tissue. The first is a irwin-clark piece of tissue. It is 0.6 x 0.5 x 0.3 cm. The second and third are irwin, gelatinous pieces of tissue. They are 1.3 x 1 x 0.7 cm with a possible 1.5 cm stalk and 1.3 x 1.2 x 0.6 cm. The possible stalk on the first is inked and this specimen is bisected. Totally submitted in one cassette. (SCB:adj) Microscopic Diagnosis Specimen C- RIGHT COLON AND TERMINAL ILEUM, RIGHT HEMICOLECTOMY: COLON: -- INVASIVE SIGNET RING CELL CARCINOMA WITH THE FOLLOWING FEATURES: - TUMOR SIZE: 8 cm IN GREATEST DIMENSION. - HISTOLOGIC GRADE: POORLY DIFFERENTIATED. - MICROSCOPIC TUMOR EXTENSION: TUMOR INVADES THE VISCERAL PERITONEUM. - MACROSCOPIC TUMOR PERFORATION: NOT IDENTIFIED. - LYMPH-VASCULAR INVASION: PRESENT. - PERINEURAL INVASION: NOT IDENTIFIED. - TUMOR DEPOSITS: EIGHTEEN, UP TO 1.5 cm IN GREATEST DIMENSION. - SEROSAL IMPLANTS: MULTIPLE, UP TO 2 cm IN GREATEST DIMENSION. - MARGINS: DISTAL AND MESENTERIC MARGINS: UNINVOLVED BY INVASIVE CARCINOMA OR DYSPLASIA; INVASIVE CARCINOMA IS 3.5 cm FROM THE NEAREST (MESENTERIC) MARGIN. - PATHOLOGIC STAGE: pT4a N1b M1c. - SEE SUMMARY CANCER DATA FOR DETAILS. 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 TERMINAL ILEUM: -- INVASIVE SIGNET RING CELL CARCINOMA INVOLVES LYMPHATIC CHANNELS WITHIN TERMINAL ILEUM. -- PROXIMAL MARGIN: UNINVOLVED BY INVASIVE CARCINOMA OR DYSPLASIA. LYMPH NODES, MESENTERIC: -- METASTATIC SIGNET RING CELL CARCINOMA IDENTIFIED IN TWO OF THIRTY FOUR LYMPH NODES (2/34). -- SIZE OF LARGEST METASTATIC DEPOSIT: 1 cm IN GREATEST DIMENSION. (DMT:sln) SUMMARY CANCER DATA Procedure: Right hemicolectomy. Tumor Site: Ascending colon. Tumor Size: 8 cm in greatest dimension. Histologic Type: Invasive signet ring cell carcinoma. Histologic Grade: Poorly differentiated. Microscopic Tumor Extension: Tumor invades the visceral peritoneum. Lymph-Vascular Invasion: Present. Perineural Invasion: Not identified. Tumor Deposits (discontinuous extramural extension): Eighteen, up to 1.5 cm in greatest dimension. Peritoneal Implants: Multiple, up to 2 cm in greatest dimension. Margins: Proximal Margin: Uninvolved by invasive carcinoma or dysplasia. Distal Margin: Uninvolved by invasive carcinoma or dysplasia. Circumferential/Mesenteric Margin: Uninvolved by invasive carcinoma. Distance of invasive carcinoma from closest margin: 3.5 cm (mesenteric). Lymph nodes: Number of Lymph Nodes examined: 34. Number of Lymph Nodes involved: 2. Pathologic Stage: pT4a N1b M1c. Gross Description The specimen is received as colon resection right colon and consists of a right colectomy specimen with a segment of colon and attached terminal ileum. The appendix is surgically absent and suture material is noted at the prior appendectomy site. A large firm mass is palpated within the mid region of the specimen. The segment of colon is up to 18.0 cm in length with a diameter up to 6.5 cm. The terminal ileum measures up to 6.5 cm with a diameter of 2.5 cm. There is abundant attached adipose tissue that measures up to 11.0 cm. Multiple firm irwin-white mass lesions are noted on the serosa that range in size from 0.2 to 2.0 cm. Tattoo pigment is also noted in the region of the mass. The colon is opened revealing a large mass involving the ascending colon and measures 8.0 x 6.7 cm. The tumor is present 13.5 cm from the proximal margin of resection and 11.0 cm from the ileal margin of resection, and 4.0 cm to the ileocecal valve. Within the cecum there is a second polypoid mass that measures up to 2.8 x 1.8 x 1.8 cm, and is present 3.5 cm from the larger mass. No evidence of macroscopic perforation is seen. Contiguous with the mass there is a firm polypoid area of mucosa that measures 3.3 x 2.5 x 1.0 cm. The appendiceal orifice is visualized and no mass lesions are seen at this site. Sectioning the large mass reveals transmural invasion with extension into subjacent adipose tissue, and a maximum thickness of 3.1 cm. The distance of the mass to the mesenteric resection margin is 3.5 cm. The deeper region of the tumor involves at least one of the previously described serosal mass lesions and the serosal surface. Multiple firm candidate lymph nodes are present within the attached adipose tissue, ranging in size from 0.3 to 3.5 cm in size. Sections are submitted according to the following slide lowe: C1 - proximal, distal and mesenteric margins; C2 - premium service representative cross sections of serosal mass lesions; C3-C5 - complete cross section of mass; C6 - additional cross section of mass in thickest region with extension to serosal surface; C7 - firm polypoid mucosa contiguous with mass, 2.0 cm from edge of large lass; C8-C9 - cecal mass entirely submitted; C10 - premium service representative sections from colon , ileocecal valve and terminal ileum; C11 - six candidate lymph nodes; C12-C13 - largest node, serially sectioned; C14 - six candidate lymph nodes (one inked and trisected- C15 - five candidate lymph nodes (one inked black and trisected; one inked blue and bisected); C16 - six candidate lymph nodes (one inked black and bisected); C17 - seven candidate lymph nodes (one inked black and bisected); C18 - six candidate lymph nodes (one inked black and bisected); C19 - eight grossly positive candidate lymph nodes, representatively submitted; C20 - eight grossly positive candidate lymph nodes, entirely submitted. (ACP:sln) Electronically Signed Ricardo Iglesias MD, FCAP Electronically Signed 07/09/2020 3:34 PM
== END 2020-07-09 15:05 | DRG 330 ==
LOC: ED 22:31 → ICU 06-29 03:00 → MEDSUR 07-04 18:23
PROVIDERS: ADMIT Internal Medicine; ATTEND Internal Medicine